=== PATIENT | male | born 1950 | race Caucasian/White ===

== ENCOUNTER 2019-04-23 03:35 | Inpatient (IN) | payer MEDICARE, OTHER ==
[2019-04-23] MEDS ORDERED: ONDANSETRON HCL INJ/PF 4 MG/2 ML SDV IV ONE (04:14)
[2019-04-23 04:24] LABS: VENOUS BLOOD BASE EXCESS -6.8 mmol/L; VENOUS BLOOD HCO3 18.2 mmol/L (20-32); VENOUS BLOOD PCO2 34.7 mmHg (35-63); VENOUS BLOOD PH 7.34 (7.30-7.42)
[2019-04-23 04:38] LABS: ABSOLUTE BASOPHILS # (AUTO) 0.1 10^3/uL (0.0-0.2); ABSOLUTE EOSINOPHILS # (AUTO) 0.1 10^3/uL (0.0-0.6); ABSOLUTE LYMPHOCYTES (AUTO) 1.9 10^3/uL (0.5-4.7); ABSOLUTE MONOCYTES (AUTO) 1.2 10^3/uL (0.1-1.4); ABSOLUTE NEUT (AUTO) 14.4 10^3/uL (1.7-8.2); BASOPHILS % (AUTO) 0.3 % (0-2); EOSINOPHILS % (AUTO) 0.6 % (0-6); HEMATOCRIT 25.7 % (37.9-51.0); HEMOGLOBIN 8.6 g/dL (13.5-17.0); LYMPHOCYTES % (AUTO) 10.6 % (13-45); MEAN CORPUSCULAR HEMOGLOBIN 30.2 pg (27.0-33.4); MEAN CORPUSCULAR HGB CONC 33.4 g/dL (32.0-36.0); MEAN CORPUSCULAR VOLUME 90 fl (80-97); MONOCYTES % (AUTO) 6.6 % (3-13); PLATELET COUNT 184 10^3/uL (150-450); RED BLOOD COUNT 2.84 10^6/uL (4.35-5.55); RED CELL DISTRIBUTION WIDTH 14.1 % (11.5-14.0); SEGMENTED NEUTROPHILS % (AUTO) 81.9 % (42-78); TOTAL CELLS COUNTED % (AUTO) 100 %; WHITE BLOOD COUNT 17.6 10^3/uL (4.0-10.5)
[2019-04-23 04:49] LABS: ALBUMIN 2.8 g/dL (3.5-5.0); ALKALINE PHOSPHATASE 34 U/L (38-126); ANION GAP 11 (5-19); ASPARTATE AMINO TRANSFERASE 24 U/L (17-59); BILIRUBIN,DIRECT 0.3 mg/dL (0.0-0.4); BILIRUBIN,TOTAL 0.3 mg/dL (0.2-1.3); BLOOD UREA NITROGEN 53 mg/dL (7-20); CALCIUM 8.2 mg/dL (8.4-10.2); CARBON DIOXIDE 20 mmol/L (22-30); CHLORIDE 109 mmol/L (98-107); GLUCOSE 179 mg/dL (75-110); POTASSIUM 4.9 mmol/L (3.6-5.0); TOTAL PROTEIN 5.5 g/dL (6.3-8.2)
[2019-04-23 04:50] LABS: INTERNATIONAL RATION (INR) 1.18; PROTHROMBIN TIME 15.1 SEC (11.4-15.4)
--- NOTE | 2019-04-23 04:54 | RADIOLOGY REPORT (SQ) ---
CLINICAL HISTORY: cough; sepsis alert COMPARISON: None. TECHNIQUE: XR CHEST 1 VIEW 04/23/2019 3:44 AM CDT FINDINGS: The heart is mildly enlarged following sternotomy. Lungs are clear without consolidation, atelectasis, mass or edema. There is a small left pleural effusion. There is no pneumothorax. There are no acute osseous findings. IMPRESSION: Small left pleural effusion.
[2019-04-23] MEDS ORDERED: PIPERACILLIN/TAZOBACTAM 4.5 GM VIAL IV ONE (05:14)
[2019-04-23] MEDS ORDERED: NORMAL SALINE IV ONE (05:14)
--- NOTE | 2019-04-23 05:33 | ER Document Report ---
Entered by CULLEN CUBA SCRIBE 04/23/19 0523 Acting as scribe for:PERLA SANTOS IV, MD ED Medical Screen (RME) - General Chief Complaint: Passed Out Prior to Arrival Stated Complaint: SYNCOPAL EPISODE Information source: Patient, Relative - Spouse Notes: 68-year-old male presents with to the emergency department via EMS after a syncopal episode that occurred at home. Patient went to use the bathroom when he "blacked out". Patient's reports fatigue, poor appetite, diarrhea and nausea. Patient's describes that they just closed on their house and have been in the process of moving from [place], [place]. Patient's states that this has caused the patient stress and he has "not been sleeping right". Patient denies black tarry stool. 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 DDx: GI bleed, sepsis, dehydration, malnutrition, ACS, PNA and UTI TRAVEL OUTSIDE OF THE [place] IN LAST 30 DAYS: No - Related Data Allergies/Adverse Reactions: oxycodone [From Percocet] Allergy (Verified 04/23/19 03:52) Past Medical History - General Information source: Patient, Relative - Social History Cigarette use (# per day): No Chew tobacco use (# tins/day): No Frequency of alcohol use: Occasional Drug Abuse: None Family history: Reviewed & Not Pertinent - Past Medical History Cardiac Medical History: Reports: Hx Hypertension Endocrine Medical History: Reports: Hx Diabetes Mellitus Type 2 Musculoskeltal Medical History: Reports Hx Arthritis - right knee Past Surgical History: Reports: Hx Cardiac Catheterization - stent Review of Systems - Review of Systems Constitutional: See HPI, Other - Fatigue EENT: No symptoms reported Cardiovascular: No symptoms reported Respiratory: No symptoms reported Gastrointestinal: See HPI, Diarrhea, Nausea, Poor appetite. denies: Black stools Genitourinary: No symptoms reported Male Genitourinary: No symptoms reported Musculoskeletal: No symptoms reported Skin: No symptoms reported Hematologic/Lymphatic: No symptoms reported Neurological/Psychological: No symptoms reported -: Yes All other systems reviewed and negative Physical Exam - Vital signs Vitals: Temp Pulse Resp BP Pulse Ox 98 F 74 18 91/48 L 99 04/23/19 03:43 04/23/19 03:43 04/23/19 03:43 04/23/19 03:43 04/23/19 03:43 - Notes Notes: Physical Exam: General: Alert, appears well. HEENT: Normocephalic. Atraumatic. PERRL. Extraocular movements intact. Or opharynx clear. Neck: Supple. Non-tender. Respiratory: No respiratory distress. Clear and equal breath sounds bilaterally. Cardiovascular: Regular rate and rhythm. Abdominal: Normal Inspection. Non-tender. No distension. Normal Bowel Sounds. Back: No gross abnormalities. Extremities: Moves all four extremities. Upper extremities: Normal inspection. Normal ROM. Lower extremities: Normal inspection. No edema. Normal ROM. Neurological: Normal cognition. AAOx4. Normal speech. Psychological: Normal affect. Normal Mood. Skin: Warm. Dry. Normal color. Course - Vital Signs Vital signs: Temp Pulse Resp BP Pulse Ox 98 F 74 18 91/48 L 99 04/23/19 03:43 04/23/19 03:43 04/23/19 03:43 04/23/19 03:43 04/23/19 03:43 - Laboratory Result Diagrams: 04/23/19 04:18 04/23/19 04:18 Laboratory results interpreted by me: 04/23/19 04/23/19 04/23/19 03:52 04:10 04:18 WBC RBC Hgb Hct RDW Lymph % (Auto) Absolute Neuts (auto) Seg Neutrophils % VBG pCO2 34.7 L VBG HCO3 18.2 L Chloride Carbon Dioxide BUN Glucose POC Glucose 183 H Lactic Acid 3.8 H Calcium Alkaline Phosphatase Total Protein Albumin 04/23/19 04/23/19 04:18 04:18 WBC 17.6 H RBC 2.84 L Hgb 8.6 L Hct 25.7 L RDW 14.1 H Lymph % (Auto) 10.6 L Absolute Neuts (auto) 14.4 H Seg Neutrophils % 81.9 H VBG pCO2 VBG HCO3 Chloride 109 H Carbon Dioxide 20 L BUN 53 H Glucose 179 H POC Glucose Lactic Acid Calcium 8.2 L Alkaline Phosphatase 34 L Total Protein 5.5 L Albumin 2.8 L I personally performed the services described in the documentation, reviewed and edited the documentation which was dictated to the scribe in my presence, and it accurately records my words and actions.
[2019-04-23 05:37] LABS: APPEARANCE,URINE CLEAR; BILIRUBIN,URINE NEGATIVE (NEGATIVE); COLOR,URINE YELLOW; GLUCOSE, URINE NEGATIVE (NEGATIVE); KETONES,URINE TRACE mg/dL (NEGATIVE); PROTEIN,URINE NEGATIVE (NEGATIVE); UROBILINOGEN,URINE NEGATIVE mg/dL (<2.0)
--- NOTE | 2019-04-23 05:47 | RADIOLOGY REPORT (SQ) ---
CLINICAL HISTORY: Fall COMPARISON: None. TECHNIQUE: CT HEAD WITHOUT IV CONTRAST on 04/23/2019 12:00 AM CDT This exam was performed according to our departmental dose-optimization program, which includes automated exposure control, adjustment of the mA and/or kV according to patient size and/or use of iterative reconstruction technique. FINDINGS: There is no acute hemorrhage, mass effect or midline shift. Geiger-white differentiation is preserved. There is no hydrocephalus. There is no significant volume loss for age. There are mild patchy hypodensities within the periventricular and subcortical white matter, consistent with microangiopathic ischemic changes. The calvarium is intact. Orbits and globes are unremarkable. The paranasal sinuses are clear. Mastoid air cells are clear. IMPRESSION: No acute intracranial findings.
--- NOTE | 2019-04-23 05:48 | RADIOLOGY REPORT (SQ) ---
CLINICAL HISTORY: Fall COMPARISON: None. TECHNIQUE: CT CERVICAL SPINE WITHOUT IV CONTRAST on 04/23/2019 12:00 AM CDT This exam was performed according to our departmental dose-optimization program, which includes automated exposure control, adjustment of the mA and/or kV according to patient size and/or use of iterative reconstruction technique. FINDINGS: There is no acute fracture. There is grade 1 retrolisthesis of C3 on C4 and C4 on C5. There is mild upper cervical facet arthritis bilaterally. There is severe of the C5-6 and C6 discs. Vertebral body heights are preserved. Soft tissues are unremarkable. IMPRESSION: No acute fracture or subluxation.
[2019-04-23] MEDS ORDERED: PANTOPRAZOLE SODIUM 40 MG VIAL IV ONE (06:20)
[2019-04-23] MEDS ORDERED: NORMAL SALINE 1000 ML 1,000 ML IV ONE (06:21)
[2019-04-23] MEDS ORDERED: NORMAL SALINE 250 ML IV PRN ×2 (06:22)
--- NOTE | 2019-04-23 06:43 | ER Document Report ---
ED General - General Chief Complaint: Passed Out Prior to Arrival Stated Complaint: SYNCOPAL EPISODE Time Seen by Provider: 04/23/19 06:09 TRAVEL OUTSIDE OF THE U.S[place] IN LAST 30 DAYS: No - HPI Notes: 68-year-old male presents with to the emergency department via EMS after a syncopal episode that occurred at home. Patient went to use the bathroom when he "blacked out". Patient's reports fatigue, poor appetite, diarrhea and nausea. Patient's describes that they just closed on their house and have been in the process of moving from [place], [place]. Patient's states that this has caused the patient stress and he has "not been sleeping right". Patient reports black tarry stool. 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 This gentleman has a past history of stroke and CABG. He is also had pleural surgery of his left long for a collapsed lung in the past. He had a previous GI bleed in 2011 and was also found to be severely anemic in 2018 on the basis of a gastric ulcer. He required transfusion of 2 units of packed cells in 2018. He denies any current abdominal pain. He has felt somewhat short of breath. - Related Data Allergies/Adverse Reactions: oxycodone [From Percocet] Allergy (Verified 04/23/19 03:52) Past Medical History - General Information source: Patient, Relative - Social History Smoking Status: Former Smoker Cigarette use (# per day): No Chew tobacco use (# tins/day): No Frequency of alcohol use: Occasional Drug Abuse: None Lives with: Spouse/Significant other Family History: Reviewed & Not Pertinent Patient has suicidal ideation: No Patient has homicidal ideation: No - Past Medical History Cardiac Medical History: Reports: Hx Hypertension Endocrine Medical History: Reports: Hx Diabetes Mellitus Type 2 GI Medical History: Reports: Hx Ulcer - Taken to endoscopy now with plan great thanks are Musculoskeletal Medical History: Reports Hx Arthritis - right knee Past Surgical History: Reports: Hx Cardiac Catheterization - stent Review of Systems - Review of Systems Notes: Constitutional: Negative for fever. HENT: Negative for sore throat. Eyes: Negative for visual changes. Cardiovascular: Negative for chest pain. Respiratory: Dyspneic. No cough or sputum production. Gastrointestinal: Negative for abdominal pain, vomiting or diarrhea. Genitourinary: Negative for dysuria. Musculoskeletal: Negative for back pain. Skin: Negative for rash. Neurological: Negative for headaches, weakness or numbness. 10 point ROS negative except as marked above and in HPI. Physical Exam - Vital signs Vitals: Temp Pulse Resp BP Pulse Ox 98 F 74 18 91/48 L 99 04/23/19 03:43 04/23/19 03:43 04/23/19 03:43 04/23/19 03:43 04/23/19 03:43 - Notes Notes: GENERAL: Anxious pale elderly man. SKIN: Pale and cool. Good turgor no rashes. HEAD: Normocephalic atraumatic. EYES: PERRLA. EOMI. Conjunctivae pale. EARS: CANALS AND TMS CLEAR. NOSE: CLEAR. MOUTH: Moist mucosa. Good dentition. No stridor or edema. No drooling. NECK: Supple. No masses or thyromegaly. No adenopathy. Carotids 2+ without bruits. No JVD. BACK: Symmetrical without tenderness. CHEST: Respirations unlabored. Breath sounds clear with diminished breath sounds left base. HEART: Regular rhythm. No murmur gallop or rub. ABDOMEN: Soft nontender without masses, organomegaly or rebound. Bowel sounds normally active. No bruits. Rectal: Dark stool strongly heme positive. EXTREMITIES: No edema. No calf tenderness. Cap refill less than 1.5 seconds. Dorsalis pedis and posterior tibial pulses 3+ and symmetrical. NEUROLOGICAL: GCS 15. Alert and oriented x3. Fluent speech. Cranial nerves II through XII intact. Sensorimotor and cerebellar normal. Normal tone. PSYCHIATRIC: Appropriate affect. Course - Re-evaluation Re-evalutation: 04/23/19 06:43 Patient has had hypotension with fainting and is still mildly hypotensive. He has a heme positive stool. His hemoglobin is 8.3 g. Platelets are normal. INR normal. EKG shows no acute changes. Clinically this man has had presumably a recurrent upper GI bleed. I have consulted Dr. Treadwell from surgery who will perform an upper GI endoscopy at this time. I have given this man resuscitation with normal saline through 2 large-bore IVs. I am going to empirically transfuse him with 2 units of packed cells and because he is on Plavix I will give him a unit of platelets as well. I have spoken with Dr. Sapp who agrees that this man can be admitted to the critical care unit at this time. I have also started IV Protonix. - Vital Signs Vital signs: Temp Pulse Resp BP Pulse Ox 98 F 74 18 91/48 L 99 04/23/19 03:43 04/23/19 03:43 04/23/19 03:43 04/23/19 03:43 04/23/19 03:43 - Laboratory Result Diagrams: 04/23/19 04:18 04/23/19 04:18 Laboratory results interpreted by me: 04/23/19 04/23/19 04/23/19 03:52 04:10 04:18 WBC RBC Hgb Hct RDW Lymph % (Auto) Absolute Neuts (auto) Seg Neutrophils % VBG pCO2 34.7 L VBG HCO3 18.2 L Chloride Carbon Dioxide BUN Glucose POC Glucose 183 H Lactic Acid 3.8 H Calcium Alkaline Phosphatase Total Protein Albumin Urine Ketones Crossmatch 04/23/19 04/23/19 04/23/19 04:18 04:18 05:21 WBC 17.6 H RBC 2.84 L Hgb 8.6 L Hct 25.7 L RDW 14.1 H Lymph % (Auto) 10.6 L Absolute Neuts (auto) 14.4 H Seg Neutrophils % 81.9 H VBG pCO2 VBG HCO3 Chloride 109 H Carbon Dioxide 20 L BUN 53 H Glucose 179 H POC Glucose Lactic Acid Calcium 8.2 L Alkaline Phosphatase 34 L Total Protein 5.5 L Albumin 2.8 L Urine Ketones TRACE H Crossmatch 04/23/19 05:48 WBC RBC Hgb Hct RDW Lymph % (Auto) Absolute Neuts (auto) Seg Neutrophils % VBG pCO2 VBG HCO3 Chloride Carbon Dioxide BUN Glucose POC Glucose Lactic Acid Calcium Alkaline Phosphatase Total Protein Albumin Urine Ketones Crossmatch See Detail Critical Care Note - Critical Care Note Total time excluding time spent on procedures (mins): 35 - Transfusion of packed cells and platelets Discharge - Discharge Clinical Impression: Syncope and collapse, Acute upper GI bleeding Condition: Critical Disposition: ADMITTED INPATIENT Admitting Provider: Selvin (Fish Inspector) Unit Admitted: ICU
--- NOTE | 2019-04-23 06:58 | PDOC CONSULTATION ---
Consultation Consult Date: 04/23/19 Attending physician:: SAMANTHA GONZALES Provider Consulted: KAR BAILEY Consult reason:: GI bleed History of Present Illness History of Present Illness: KATI SOLIS is a 68 year old male Presents emergency department via rescue after having fallen down, experiencing a syncopal episode in the bathroom last night. Patient arrived hypotensive and somewhat disoriented, but improved with IV fluids. Patient had CT scan of the head, unremarkable, chest x-ray which showed a small left pleural effusion. On further questioning patient was noted to have several days of dark tarry stools and weakness. Symptoms were similar to patient's GI bleed in 2011. In the emergency department his hemoglobin was found to be 8.5. Examination revealed positive stools but no hematemesis or zeb melena the ER. Surgery was consulted for upper endoscopy. Past history significant for hematemesis 2012 upper GI bleed requiring scopic intervention. Patient had another episode of anemia in 2018, requiring 2 units of blood transfusion. Upper endoscopy at that time showed healing ulcer; patient has had several colonoscopies in 2014 and 2018 most recently with polyps only. Patient is on Plavix for history of stent placement. He is status post CABG in 2005. Patient been evaluated in the emergency department, being transferred to the ICU for further management. Past Medical History Past Medical History: Coronary artery disease, GI bleed, ulcers, gastric polyp, left lung decortication Cardiac Medical History: Reports: Hypertension Endocrine Medical History: Reports: Diabetes Mellitus Type 2 Musculoskeltal Medical History: Reports: Arthritis - right knee Past Surgical History Past Surgical History: Cardiac catheterization in the last 5 years, with stent placement; coronary artery bypass grafting, during, 2005; right knee surgery post trauma; left lung decortication 2018, [place], [place] Past Surgical History: Reports: Cardiac Catheterization - stent Social History Lives with: Spouse/Significant other Smoking Status: Former Smoker Electronic Cigarette use?: No Frequency of Alcohol Use: Social Hx Recreational Drug Use: No Hx Prescription Drug Abuse: No Family History Family History: None, Reviewed & Not Pertinent Parental Family History Reviewed: No Children Family History Reviewed: No Sibling(s) Family History Reviewed.: No Medication/Allergy Home Medications: Acetaminophen [Tylenol] 1,000 mg PO Q6HP PRN 04/23/19 Ascorbic Acid [Vitamin C 500 mg Tablet] 1 tab PO Q4D 04/23/19 Aspirin [Aspirin 81 mg Chewable Tablet] 81 mg PO DAILY 04/23/19 Clopidogrel Bisulfate [Plavix] 75 mg PO DAILY 04/23/19 Dextromethorphan Polistirex 30 mg PO Q8H 04/23/19 Diphenhydramine HCl [Allergy Medication] 1 tab PO Q8HP PRN 04/23/19 Ferrous Sulfate [Feosol 325 mg Tablet] 325 mg PO Q4D 04/23/19 Ibuprofen [Ibu] 600 mg PO Q8HP PRN 04/23/19 Loperamide HCl [Loperamide] 2 mg PO Q8HP PRN 04/23/19 Melatonin 10 mg PO QHS 04/23/19 Metformin HCl [Metformin HCl ER] 1,000 mg PO BID 04/23/19 Metoprolol Succinate 100 mg PO DAILY 04/23/19 Oxymetazoline HCl [Afrin 0.05% Nasal Magdalena 15 ml Bottle] 1 spray NASL ASDIR PRN 04/23/19 Sildenafil Citrate 1 tab PO PRN PRN 04/23/19 Simvastatin 40 mg PO DAILY 04/23/19 Allergies/Adverse Reactions: oxycodone [From Percocet] Allergy (Verified 04/23/19 03:52) Review of Systems Eyes: ABSENT: visual disturbances Ears: ABSENT: hearing changes Cardiovascular: ABSENT: chest pain, dyspnea on exertion, edema, orthropnea, palpitations Gastrointestinal: ABSENT: abdominal pain, constipation, diarrhea, hematemesis, hematochezia, nausea, vomiting Genitourinary: PRESENT: nocturia Musculoskeletal: PRESENT: joint swelling Neurological: ABSENT: abnormal gait, abnormal speech, confusion, dizziness, focal weakness, syncope Psychiatric: ABSENT: anxiety, depression, homidical ideation, suicidal ideation Endocrine: ABSENT: cold intolerance, heat intolerance, polydipsia, polyuria Hematologic/Lymphatic: PRESENT: other - History of anemia Physical Exam Vital Signs: Temp Pulse Resp BP Pulse Ox 98 F 74 18 91/48 L 99 04/23/19 03:43 04/23/19 03:43 04/23/19 03:43 04/23/19 03:43 04/23/19 03:43 Intake & Output 04/21/19 04/22/19 04/23/19 06:59 06:59 06:59 Weight 96.162 kg General appearance: PRESENT: no acute distress, other - Looks pale, talkative Head exam: PRESENT: normocephalic Eye exam: PRESENT: EOMI Mouth exam: PRESENT: dry mucosa Neck exam: PRESENT: full ROM Respiratory exam: PRESENT: clear to auscultation juani, other - Well-healed median sternotomy scar; left thoracostomy tube site scars Cardiovascular exam: PRESENT: RRR Pulses: PRESENT: normal carotid pulses, normal radial pulses, normal femoral pulses, normal dorsalis pedis pul GI/Abdominal exam: PRESENT: soft - Soft nontender no peritoneal signs no rigidity Rectal exam: PRESENT: deferred Extremities exam: PRESENT: full ROM Musculoskeletal exam: PRESENT: full ROM Neurological exam: PRESENT: oriented to person, oriented to place, oriented to time, oriented to situation Psychiatric exam: PRESENT: appropriate affect Results Laboratory Results: 04/23/19 04:18 04/23/19 04:18 04/23/19 04/23/19 04/23/19 04:10 04:18 04:18 WBC 17.6 H RBC 2.84 L Hgb 8.6 L Hct 25.7 L MCV 90 MCH 30.2 MCHC 33.4 RDW 14.1 H Plt Count 184 Seg Neutrophils % 81.9 H VBG pH 7.34 VBG pCO2 34.7 L VBG HCO3 18.2 L VBG Base Excess -6.8 Sodium Potassium Chloride Carbon Dioxide Anion Gap BUN Creatinine Est GFR ( Amer) Glucose Lactic Acid 3.8 H Calcium Total Bilirubin AST Alkaline Phosphatase Total Protein Albumin Urine Color Urine Appearance Urine pH Ur Specific [place] Urine Protein Urine Glucose (UA) Urine Ketones Urine Blood Blood Type 04/23/19 04/23/19 04/23/19 04:18 05:21 05:48 WBC RBC Hgb Hct MCV MCH MCHC RDW Plt Count Seg Neutrophils % VBG pH VBG pCO2 VBG HCO3 VBG Base Excess Sodium 139.5 Potassium 4.9 Chloride 109 H Carbon Dioxide 20 L Anion Gap 11 BUN 53 H Creatinine 0.83 Est GFR ( Amer) > 60 Glucose 179 H Lactic Acid Calcium 8.2 L Total Bilirubin 0.3 AST 24 Alkaline Phosphatase 34 L Total Protein 5.5 L Albumin 2.8 L Urine Color YELLOW Urine Appearance CLEAR Urine pH 5.0 Ur Specific [place] 1.020 Urine Protein NEGATIVE Urine Glucose (UA) NEGATIVE Urine Ketones TRACE H Urine Blood NEGATIVE Blood Type O POSITIVE 04/23/19 04:18 Troponin I < 0.012 Impressions: Cervical Spine CT 04/23/19 00:00 IMPRESSION: No acute fracture or subluxation. Head CT 04/23/19 00:00 IMPRESSION: No acute intracranial findings. Chest X-Ray 04/23/19 03:44 IMPRESSION: Small left pleural effusion. Assessment & Plan - Diagnosis (1) Acute upper GI bleeding Is this a current diagnosis for this admission?: Yes Plan: Impression: Presumed upper GI bleed based on past history of peptic ulcer disease, melanotic stools and blood loss anemia with ectopy and hypotension. Patient stabilizing with IV fluids. Recommendations: 1. Admit to manager quality service, monitor, support with blood transfusions, antiulcer therapy 2. We will set patient up for upper endoscopy later today by Dr. Gutierrez in the ICU. The above explained to the patient and his . I believe they understand agree to proceed. (2) Status post aorto-coronary artery bypass graft Is this a current diagnosis for this admission?: Yes (3) History of peptic ulcer disease Is this a current diagnosis for this admission?: Yes (4) Syncope and collapse Is this a current diagnosis for this admission?: Yes (5) Visit for monitoring Plavix therapy Is this a current diagnosis for this admission?: Yes (6) Diabetes mellitus Is this a current diagnosis for this admission?: Yes - Time Time Spent: 30 to 50 Minutes Smoking Cessation Education: 3 to 10 minutes Medications reviewed and adjusted accordingly: Yes Anticipated discharge: Home - Inpatient Certification Based on my medical assessment, after consideration of the patient's comorbidities, presenting symptoms, or acuity I expect that the services needed warrant INPATIENT care.: Yes I certify that my determination is in accordance with my understanding of Medicare's requirements for reasonable and necessary INPATIENT services [42 CFR 412.3e].: Yes Medical Necessity: Need For IV Fluids, Need for Pain Control, Need for IV Antibi otics, Need for Surgery
[2019-04-23] MEDS: PANTOPRAZOLE SODIUM 40 MG VIAL IV PRN ×2 (07:21→16:18)
--- NOTE | 2019-04-23 09:38 | RADIOLOGY REPORT (SQ) ---
EXAM DESCRIPTION: CHEST SINGLE VIEW COMPLETED DATE/TIME: 04/23/2019 9:22 am REASON FOR STUDY: DYSPNEA COMPARISON: None. EXAM PARAMETERS: NUMBER OF VIEWS: One view. TECHNIQUE: Single frontal radiographic view of the chest acquired. RADIATION DOSE: NA LIMITATIONS: None. FINDINGS: LUNGS AND PLEURA: Stable trace left effusion and mild basilar opacities. No new airspace disease. No pneumothorax. MEDIASTINUM AND HILAR STRUCTURES: No masses. Contour normal. HEART AND VASCULAR STRUCTURES: Normal heart size. Vascular calcifications. Evidence of prior CABG. BONES: No acute findings. HARDWARE: CABG hardware. OTHER: No other significant finding. IMPRESSION: 1. Stable trace left effusion mild left basilar opacities. 2. Prior CABG. TECHNICAL DOCUMENTATION: JOB ID: [id number] [employer]- All Rights Reserved Reading location - IP/workstation name: [email or web address]
[2019-04-23 09:57] LABS: PHOSPHORUS 3.1 mg/dL (2.5-4.5)
[2019-04-23 10:00] LABS: AMYLASE < 30 U/L (30-110)
[2019-04-23] MEDS: RINGERS SOLUTION,LACTATED 1,000 ML IV PRN ×2 (11:43→21:43)
[2019-04-23] MEDS ORDERED: ONDANSETRON HCL INJ/PF 4 MG/2 ML SDV ONE ×2 (12:24→15:48)
[2019-04-23] MEDS ORDERED: DIPHENHYDRAMINE HCL 50 MG/ML VIAL ONE ×2 (12:24→15:48)
[2019-04-23] MEDS ORDERED: GLUCAGON,HUMAN RECOMB 1 MG INJ ONE ×2 (12:25→15:49)
[2019-04-23] MEDS ORDERED: FLUMAZENIL INJ 0.5 MG/5 ML VIAL ONE ×2 (12:25→15:49)
[2019-04-23] MEDS ORDERED: NALOXONE HCL INJ/PF 0.4 MG/1 ML SDV ONE ×2 (12:25→15:49)
[2019-04-23] MEDS ORDERED: EPINEPHRINE INJ 1 MG/10 ML DISP.SYRIN ONE ×2 (12:25→15:49)
--- NOTE | 2019-04-23 13:26 | CRITICAL CARE ADMISSION REPORT ---
[facility] Date:: 04/23/19 Time:: 08:30 Reason for ICU Reason:: Hypotension with anemia and melena on Plavix HPI: 68-year-old male presents to Emergency department via EMS after a syncopal episode which occurred at home. Patient used the bathroom and does not remember what happened. He apparently "blacked out". Patient and endorse fatigue, poor appetite, diarrhea and nausea. Patient felt that this was related to being busy, not eating and a recent move. Patient's describes that they have been in the process of moving from [place], [place]. Patient has felt stress and has "not been sleeping right". Patient reports black tarry stool. Patient arrived hypotensive and somewhat disoriented, but improved with IV fluids. CT scan of the head and neck were unremarkable. A Chest x-ray which showed a small left pleural effusion. Patient does endorse several days of dark tarry stools and weakness. Symptoms were similar to patient's GI bleed in 2012. In the emergency department his hemoglobin was found to be 8.5. Examination revealed positive stools but no hematemesis or zeb melena the ER. 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 Patient feels that this was lack of food and he attempted to improve this with the hydrates. He endorses nausea without vomiting. He does not describe any abdominal pain. He does feel slightly short of breath but this improved with oxygen given in the emergency room. He also states that he has been using ibuprophen for aches and pains associated with cleaning up his house and moving. He takes this in addition to Plavix and Aspirin. As noted from ED: Has past history of stroke and CABG. He is also had pleural surgery of his left long for a collapsed lung in the past. He had a previous GI bleed in 2012 and was also found to be severely anemic in 2018 on the basis of a "mild gastric ulcer. He required transfusion of 2 units of packed cells in 2018. Past history significant for hematemesis 2012 upper GI bleed requiring scopic intervention. Patient had another episode of anemia in 2018, requiring 2 units of blood transfusion. Upper endoscopy at that time showed healing ulcer; patient has had several colonoscopies in 2015 and 2018 most recently with polyps only. Patient is on Plavix for history of stent placement. He is status post CABG in 2005. History obtained from:: Patient, ED staff and - Diagnosis/Plan (1) Hypotension due to hypovolemia Is this a current diagnosis for this admission?: Yes (2) Syncope and collapse Is this a current diagnosis for this admission?: Yes (3) Syncope due to orthostatic hypotension Is this a current diagnosis for this admission?: Yes (4) Acute on chronic blood loss anemia Is this a current diagnosis for this admission?: Yes (5) Anticoagulant-induced bleeding Is this a current diagnosis for this admission?: Yes (6) Upper gastrointestinal bleeding Is this a current diagnosis for this admission?: Yes (7) Lactic acidosis Is this a current diagnosis for this admission?: Yes - . Plan Summary: The patient had orthostatic hypotension related to hypovolemia related to acute on chronic blood loss from an apparent GI bleed. He is on DAPT and has been taking Ibuprophen. He has been ordered 2 units of blood and platelets by the emergency department. This will be ineffective in the face of Plavix and aspirin and if his bleeding worsens will need DDAVP. I personally reviewed his EKG which shows no acute changes. Given his shortness of breath and orthostasis will follow troponin. Patient will need upper GI evaluation and have asked surgery for assistance. In the emergency room his blood pressure on my evaluation was what was 86/46 and given his cardiac history he meets criteria and suitability for ICU admission. Patient does have mild elevation in lactic acid but this may be related to metformin. This may be a metformin associated but not induced lactic acid elevation. Continue to monitor his pH status He has been started on Protonix and will continue this as a maintenance drip He has no history of H. pylori Obviously will need counseling on NSAID use. Past Medical History Cardiac Medical History: Reports: Coronary Artery Disease, Myocardial Infarction, Hypertension Pulmonary Medical History: Reports: None EENT Medical History: Reports: None Neurological Medical History: Reports: Ischemic CVA Endocrine Medical History: Reports: Diabetes Mellitus Type 2 Malignancy Medical History: Reports: None GI Medical History: Reports: Gastroesophageal Reflux Disease, Peptic Ulcer Disease, Other - Previous GI bleed Musculoskeltal Medical History: Reports: Arthritis - right knee Past Surgical History Past Surgical History: Reports: Cardiac Catheterization - stent, Coronary Stent Social/Family History - Social History Lives with: Spouse/Significant other Smoking Status: Former Smoker Last Time Smoked: 26 years ago Frequency of Alcohol Use: Social Amount of Alcoholic Beverages Per Day: none. Only only one day of weekend. Hx Recreational Drug Use: No Drugs: None Hx Prescription Drug Abuse: No - Family History Family History: Reviewed & Not Pertinent - Medication/Allergies Home Medications: Clopidogrel Bisulfate [Plavix] 75 mg PO DAILY 04/23/19 Diphenhydramine HCl [Allergy Medication] 1 tab PO Q8HP PRN 04/23/19 Metformin HCl [Metformin HCl ER] 1,000 mg PO BID 04/23/19 Metoprolol Succinate 100 mg PO DAILY 04/23/19 Simvastatin 40 mg PO DAILY 04/23/19 Allergies/Adverse Reactions: oxycodone [From Percocet] Allergy (Verified 04/23/19 03:52) Review of Systems Constitutional: PRESENT: as per HPI Cardiovascular: PRESENT: as per HPI Respiratory: PRESENT: as per HPI Gastrointestinal: PRESENT: as per HPI Genitourinary: ABSENT: difficulty urinating, hematuria Musculoskeletal: PRESENT: as per HPI Neurological: PRESENT: as per HPI Endocrine: PRESENT: as per HPI Hematologic/Lymphatic: PRESENT: as per HPI Physical Exam Vital Signs: Temp Pulse Resp BP Pulse Ox 98 F 80 21 H 95/54 L 100 04/23/19 08:31 04/23/19 08:08 04/23/19 08:45 04/23/19 08:45 04/23/19 08:45 Intake & Output 04/22/19 04/23/19 04/24/19 06:59 06:59 06:59 Intake Total 227 Balance 227 Weight 96.162 kg Weight/Height Weight 96.162 kg Height 5 ft 8 in General appearance: PRESENT: no acute distress, obese, well-nourished Head exam: PRESENT: atraumatic, normocephalic Eye exam: PRESENT: conjunctiva pale, EOMI, PERRLA. ABSENT: conjunctival injection, nystagmus, scleral icterus Mouth exam: PRESENT: dry mucosa Neck exam: ABSENT: carotid bruit, JVD, lymphadenopathy, thyromegaly Respiratory exam: PRESENT: clear to auscultation juani. ABSENT: accessory muscle use, rales, rhonchi, wheezes Cardiovascular exam: PRESENT: RRR, other - Bp 84/45 in ED, repeat in ICU, 110/60. ABSENT: diastolic murmur, rubs, systolic murmur Pulses: PRESENT: +1 pedal pulses bilateral Vascular exam: PRESENT: normal capillary refill, other - pale GI/Abdominal exam: PRESENT: normal bowel sounds, soft. ABSENT: distended, guarding, mass, organolmegaly, rebound, tenderness Rectal exam: PRESENT: deferred, black stool Extremities exam: ABSENT: +1 edema Neurological exam: PRESENT: alert, awake, oriented to person, oriented to place, oriented to time, oriented to situation, CN II-XII grossly intact. ABSENT: motor sensory deficit Psychiatric exam: PRESENT: appropriate affect, normal mood Focused psych exam: ABSENT: pressured speech, psychomotor agitation, restlessness Skin exam: PRESENT: dry, intact, pallor. ABSENT: cyanosis, erythema, jaundice, mottled Tubes/Lines: ABSENT: Endotracheal Tube, Chest Tube, Central Line, Arterial Catheter, Dialysis catheter, Peg Tube, Nasogastic Tube, Other Laboratory/Radiographs Laboratory Results: 04/23/19 04:18 04/23/19 04:18 04/23/19 04/23/19 04/23/19 04:10 04:18 04:18 WBC 17.6 H RBC 2.84 L Hgb 8.6 L Hct 25.7 L MCV 90 MCH 30.2 MCHC 33.4 RDW 14.1 H Plt Count 184 Seg Neutrophils % 81.9 H VBG pH 7.34 VBG pCO2 34.7 L VBG HCO3 18.2 L VBG Base Excess -6.8 Sodium Potassium Chloride Carbon Dioxide Anion Gap BUN Creatinine Est GFR ( Amer) Glucose Lactic Acid 3.8 H Calcium Total Bilirubin AST Alkaline Phosphatase Total Protein Albumin Urine Color Urine Appearance Urine pH Ur Specific [place] Urine Protein Urine Glucose (UA) Urine Ketones Urine Blood Blood Type Antibody Screen 04/23/19 04/23/19 04/23/19 04:18 05:21 05:48 WBC RBC Hgb Hct MCV MCH MCHC RDW Plt Count Seg Neutrophils % VBG pH VBG pCO2 VBG HCO3 VBG Base Excess Sodium 139.5 Potassium 4.9 Chloride 109 H Carbon Dioxide 20 L Anion Gap 11 BUN 53 H Creatinine 0.83 Est GFR ( Amer) > 60 Glucose 179 H Lactic Acid Calcium 8.2 L Total Bilirubin 0.3 AST 24 Alkaline Phosphatase 34 L Total Protein 5.5 L Albumin 2.8 L Urine Color YELLOW Urine Appearance CLEAR Urine pH 5.0 Ur Specific [place] 1.020 Urine Protein NEGATIVE Urine Glucose (UA) NEGATIVE Urine Ketones TRACE H Urine Blood NEGATIVE Blood Type O POSITIVE Antibody Screen NEGATIVE 04/23/19 06:56 WBC RBC Hgb Hct MCV MCH MCHC RDW Plt Count Seg Neutrophils % VBG pH VBG pCO2 VBG HCO3 VBG Base Excess Sodium Potassium Chloride Carbon Dioxide Anion Gap BUN Creatinine Est GFR ( Amer) Glucose Lactic Acid 4.6 H Calcium Total Bilirubin AST Alkaline Phosphatase Total Protein Albumin Urine Color Urine Appearance Urine pH Ur Specific [place] Urine Protein Urine Glucose (UA) Urine Ketones Urine Blood Blood Type Antibody Screen 04/23/19 04/23/19 04:18 04:18 Troponin I < 0.012 NT-Pro-B Natriuret Pep 131 H Impressions: Cervical Spine CT 04/23/19 00:00 IMPRESSION: No acute fracture or subluxation. Head CT 04/23/19 00:00 IMPRESSION: No acute intracranial findings. Chest X-Ray 04/23/19 03:44 IMPRESSION: Small left pleural effusion. All labs, radiographs, diagnostic studies and EKGs were personally reviewed: Yes In addition, reports of radiographic and diagnostic studies were read: Yes Critical Time Critical Time (minutes): 70 -: The care of a critically ill patient is dynamic. This note represents a static moment in the admission process. Orders and treatments may be given simultaneously and urgently, and time is not players club representative of the treatment process. This patient requires Critical Care secondary to life threatening organ or limb dysfunction. Without Critical Care services, the patient is at risk for increased mortality and morbidity. Discussed with senior health consultant staff
[2019-04-23] MEDS: FENTANYL CITRATE INJ/PF 100 MCG/2 ML AMPUL ONE ×3 (14:25→14:45)
[2019-04-23] MEDS: MIDAZOLAM 2 MG/2 ML INJ ONE ×4 (14:25→15:05)
--- NOTE | 2019-04-23 15:40 | Operative Report ---
Nonrecallable Operative Report DATE OF SURGERY: 04/23/19 PREOPERATIVE DIAGNOSIS: Gastrointestinal bleeding POSTOPERATIVE DIAGNOSIS: Upper gastrointestinal bleeding OPERATION: Esophagogastroduodenoscopy. SURGEON: ASHLEY DECKER ANESTHESIA: Moderate Sedation TISSUE REMOVED OR ALTERED: None COMPLICATIONS: None ESTIMATED BLOOD LOSS: 100 cc INTRAOPERATIVE FINDINGS: Large amount of clot within the stomach and distal esophagus the bleeding is coming from the proximal portion of the stomach just below the GE junction and a hiatal hernia PROCEDURE: Procedure was accomplished in the intensive care unit on the on the hospital bed. The patient was given IV sedation with fentanyl and Versed. After appropriate timeout site verification the procedure commenced. Olympus gastroscope was passed into the mouth into the proximal stomach. Upon visualization of the stomach there was a large amount of old blood clot. And thick tenacious clot. We were then to pass the scope into the antrum and there is no obvious bleeding coming from the body or antrum the stomach we identified the pylorus the pelvis was intubated there was no evidence of any obvious ulcer disease. We then brought the scope back through the GE junction again and noted a slow significant mount of bleeding on the medial aspect of the cardia of the stomach just below the GE junction within the hiatal hernia. I do not really appreciate a Annabella-Choudhary tear. However because of significant amount of clot was not able to completely clear the clot to get good identification of a mucosal abnormality other than bleeding from underneath the clot. We had multiple attempts at trying to remove the clot with irrigation and suction and placement of an NG tube again around the scope with more irrigation but the clot was quite tenacious within on the surface of the mucosa at the medial aspect of the cardia of the stomach. After multiple attempts we have elected to quit the procedure at this point. I have contacted Dr. Lee from gastroenterology who will also make another attempt at removing the clot using an overtube possibly and gaining better identification of the bleeding source. It appears that patient may be bleeding from either Annabella-Choudhary tear Alonso erosion or duiaFoy ulcer
[2019-04-23] MEDS ORDERED: FENTANYL CITRATE INJ/PF 100 MCG/2 ML AMPUL ONE (15:48)
[2019-04-23] MEDS ORDERED: MIDAZOLAM 2 MG/2 ML INJ ONE (15:49)
[2019-04-23] MEDS ORDERED: PROPOFOL INJ 200 MG/20 ML VIAL IV ONE (16:20)
--- NOTE | 2019-04-23 17:09 | PDOC CONSULTATION ---
Consultation Consult Date: 04/23/19 Provider Consulted: FER VARELA History of Present Illness Admission Date/PCP: 04/23/19 07:20 History of Present Illness: KATI SOLIS is a 68 year old male Patient who was admitted to the emergency room this morning with an acute GI bleed. He had presented with syncope while in the bathroom and was having melanotic stools. He had an urgent EGD performed by Dr. Gutierrez revealing a large amount of fresh blood and clots in the stomach which limited endoscopic view significantly. Consultation was requested for repeat endoscopy with possible therapeutic control of bleeding. His admission hemoglobin was 8 and he has since received 1 unit of blood. He has had 2 previous GI bleeding back in 2012 and again in 2018. He has been diagnosed with a gastric ulcer in the past and an EGD in 2018 showed a healing ulcer. He takes aspirin, Plavix, and ibuprofen on a regular basis. He drinks alcohol about once a week and has no history of cirrhosis. Past Medical History Cardiac Medical History: Reports: Coronary Artery Disease, Myocardial Infarc tion, Hypertension Pulmonary Medical History: Reports: None EENT Medical History: Reports: None Neurological Medical History: Reports: Ischemic CVA Denies: Seizures Endocrine Medical History: Reports: Diabetes Mellitus Type 2 Malignancy Medical History: Reports: None GI Medical History: Reports: Gastroesophageal Reflux Disease, Peptic Ulcer Disease, Other - Previous GI bleed Musculoskeltal Medical History: Reports: Arthritis - right knee Past Surgical History Past Surgical History: Reports: Cardiac Catheterization - stent, Coronary Stent Social History Lives with: Spouse/Significant other Smoking Status: Former Smoker Electronic Cigarette use?: No Last Time Smoked: 26 years ago Frequency of Alcohol Use: Social Hx Recreational Drug Use: No Drugs: None Hx Prescription Drug Abuse: No Family History Family History: Reviewed & Not Pertinent Parental Family History Reviewed: No Children Family History Reviewed: NA Sibling(s) Family History Reviewed.: NA Medication/Allergy Home Medications: Clopidogrel Bisulfate [Plavix] 75 mg PO DAILY 04/23/19 Diphenhydramine HCl [Allergy Medication] 1 tab PO Q8HP PRN 04/23/19 Metformin HCl [Metformin HCl ER] 1,000 mg PO BID 04/23/19 Metoprolol Succinate 100 mg PO DAILY 04/23/19 Simvastatin 40 mg PO DAILY 04/23/19 Allergies/Adverse Reactions: oxycodone [From Percocet] Allergy (Verified 03/13/20 03:52) Review of Systems ROS unobtainable: Due to mental status Physical Exam Vital Signs: Temp Pulse Resp BP Pulse Ox 97.9 F 88 24 H 122/60 95 04/23/19 14:00 04/23/19 15:35 04/23/19 15:35 04/23/19 15:35 04/23/19 15:35 Intake & Output 04/22/19 04/23/19 04/24/19 06:59 06:59 06:59 Intake Total 227 Balance 227 Weight 96.162 kg 100.8 kg Exam: General: Patient is sedated and restless in bed. HEENT: There is pallor but no jaundice. PERRLA. Oropharynx normal Respiratory: No chest deformity. No respiratory distress. Chest wall palpitation was unremarkable. Breath sounds were normal Cardiovascular: Heart sounds 1 and 2 normal with no murmurs. Abdominal: Not distended. Soft and nontender. Liver and spleen not palpable. No ascites demonstrated. Bowel sounds active. Rectal examination was deferred. Extremities: No edema Neurological: Not examined Results Laboratory Results: 04/23/19 04:18 04/23/19 04:18 04/23/19 04/23/19 04/23/19 04:10 04:18 04:18 WBC 17.6 H RBC 2.84 L Hgb 8.6 L Hct 25.7 L MCV 90 MCH 30.2 MCHC 33.4 RDW 14.1 H Plt Count 184 Seg Neutrophils % 81.9 H VBG pH 7.34 VBG pCO2 34.7 L VBG HCO3 18.2 L VBG Base Excess -6.8 Sodium Potassium Chloride Carbon Dioxide Anion Gap BUN Creatinine Est GFR ( Amer) Glucose Lactic Acid 3.8 H Calcium Phosphorus Magnesium Total Bilirubin AST Alkaline Phosphatase Ammonia Total Protein Albumin Amylase Lipase TSH Urine Color Urine Appearance Urine pH Ur Specific [place] Urine Protein Urine Glucose (UA) Urine Ketones Urine Blood Blood Type Antibody Screen 04/23/19 04/23/19 04/23/19 04:18 04:18 04:18 WBC RBC Hgb Hct MCV MCH MCHC RDW Plt Count Seg Neutrophils % VBG pH VBG pCO2 VBG HCO3 VBG Base Excess Sodium 139.5 Potassium 4.9 Chloride 109 H Carbon Dioxide 20 L Anion Gap 11 BUN 53 H Creatinine 0.83 Est GFR ( Amer) > 60 Glucose 179 H Lactic Acid Calcium 8.2 L Phosphorus 3.1 Magnesium 1.6 Total Bilirubin 0.3 AST 24 Alkaline Phosphatase 34 L Ammonia Total Protein 5.5 L Albumin 2.8 L Amylase < 30 L Lipase 119.7 TSH 1.42 Urine Color Urine Appearance Urine pH Ur Specific [place] Urine Protein Urine Glucose (UA) Urine Ketones Urine Blood Blood Type Antibody Screen 04/23/19 04/23/19 04/23/19 05:21 05:48 06:56 WBC RBC Hgb Hct MCV MCH MCHC RDW Plt Count Seg Neutrophils % VBG pH VBG pCO2 VBG HCO3 VBG Base Excess Sodium Potassium Chloride Carbon Dioxide Anion Gap BUN Creatinine Est GFR ( Amer) Glucose Lactic Acid 4.6 H Calcium Phosphorus Magnesium Total Bilirubin AST Alkaline Phosphatase Ammonia Total Protein Albumin Amylase Lipase TSH Urine Color YELLOW Urine Appearance CLEAR Urine pH 5.0 Ur Specific [place] 1.020 Urine Protein NEGATIVE Urine Glucose (UA) NEGATIVE Urine Ketones TRACE H Urine Blood NEGATIVE Blood Type O POSITIVE Antibody Screen NEGATIVE 04/23/19 04/23/19 09:51 09:51 WBC RBC Hgb Hct MCV MCH MCHC RDW Plt Count Seg Neutrophils % VBG pH VBG pCO2 VBG HCO3 VBG Base Excess Sodium Potassium Chloride Carbon Dioxide Anion Gap BUN Creatinine Est GFR ( Amer) Glucose Lactic Acid 4.9 H Calcium Phosphorus Magnesium Total Bilirubin AST Alkaline Phosphatase Ammonia 14.4 Total Protein Albumin Amylase Lipase TSH Urine Color Urine Appearance Urine pH Ur Specific [place] Urine Protein Urine Glucose (UA) Urine Ketones Urine Blood Blood Type Antibody Screen 04/23/19 04/23/19 04/23/19 04:18 04:18 09:51 Troponin I < 0.012 < 0.012 NT-Pro-B Natriuret Pep 131 H 04/23/19 16:01 Troponin I < 0.012 NT-Pro-B Natriuret Pep Impressions: Cervical Spine CT 04/23/19 00:00 IMPRESSION: No acute fracture or subluxation. Head CT 04/23/19 00:00 IMPRESSION: No acute intracranial findings. Chest X-Ray 04/23/19 03:44 IMPRESSION: Small left pleural effusion. Assessment & Plan - Diagnosis (1) Acute upper GI bleeding Is this a current diagnosis for this admission?: Yes Plan: He has an acute upper GI bleed but the definite source is yet to be identified. I will attempt to clean his gastric blood clots using a large bore irrigation t ube followed by a repeat endoscopy. (2) Acute on chronic blood loss anemia Is this a current diagnosis for this admission?: Yes (3) Syncope due to orthostatic hypotension Is this a current diagnosis for this admission?: Yes
--- NOTE | 2019-04-23 17:17 | Operative Report ---
Operative Report DATE OF SURGERY: 04/23/19 Operative Report: Pre-op diagnosis: Acute upper GI bleeding Post-op diagnosis: 1. GE junction ulcer/tear with active bleeding 2. Grade A erosive esophagitis 3. Small hiatal hernia and esophageal ring Surgery: Esophagogastroduodenoscopy with epinephrine injection Medications: Versed 2mg, propofol was provided by Dr. Montalvo Tissue removed: None Procedure: After informed consent obtained from patient's conscious sedation was initially provided with Versed. I then inserted the gastric lavage tube through the mouth into the stomach. Large amounts of clots was initially aspirated. The double channel endoscope was then passed into the stomach and further into the duodenum. Detailed examination of the duodenum, antrum, and gastric body showed no lesions to explain his GI bleed. View of the fundus was very limited due to the large amount of clots. The endoscope was again removed and attempt was made to aspirate the clots. Overall aspirated 700 mL of large clots but there was still some in the fundus. Later during the endoscopy fresh arterial bleeding was noted at the GE junction along the Z-line/ring circumference. This looked like a small ulcer or a small tear. Another erosion was noted along the Z line. The bleeding site was then injected with epinephrine 1 in 10,000. No active bleeding was identified. I had a better view of the fundus with changing patient's position and no other lesion was identified. He tolerated the procedure well. He required propofol during the procedure provided by the seam stay stitcher. Findings Esophagus: Bleeding ulcer/tear that was injected with epinephrine. A small hiatal hernia was also noted with erosive esophagitis Antrum: Normal Body: Normal Fundus: Limited view Duodenum first part: Normal Duodenum second part: Normal Plan: Continue IV Protonix and discharge with PPI twice daily for the next 8 weeks. Avoid NSAIDs as much as possible. May resume Plavix in a few days. If he bleeds again during this admission his endoscopy will be repeated with intubation OPERATION: .
--- NOTE | 2019-04-23 17:45 | Progress Note ---
Provider Note Provider Note: Date of service 04-23-2019 I was called to the bedside to assist the flight service specialist who was performing EGD. Begun the procedure and required controlled sedation. Had already received Versed and fentanyl but was still quite agitated. Had a bite-block in. Using continuous hemodynamic monitoring every 3 to 5 minutes, with adjunctive resuscitative equipment including code cart, bag mask valve ventilation, Narcan, and backup intubating supplies I personally provided controlled sedation using aliquots of propofol. Patient's pre-procedure ASA classification is 3. Unable to evaluate patient's oral aperture. Thorough mental distance was greater than 3 fingerbreadths. Pressure prior to initiation of control propofol sedation is 115/55 and 5-minute monitoring blood pressure showed the lowest blood pressure 95/71. Rate remained in the 80s to 90s throughout the procedure. Oxygen saturation well maintained a t 95 to 100% using nasal cannula. Respiratory rate between 16-22. The entire procedure took approximately 48 to 50 minutes. Throughout that time 10 mg gram aliquots of propofol were used for controlled sedation. Maintained his airway and remained hemodynamically stable with intact respiratory mechanics. Patient was monitored throughout the case and post procedure multiple examinations were done to assure persistent stability. He was communicative, hemodynamically stable and had no respiratory compromise. Successful completion of conscious sedation with controlled propofol total dose over 50 minutes 110 mg given sequentially and aliquots over 45 minutes. Total time: 65 minutes
--- NOTE | 2019-04-23 18:15 | EKG REPORT ---
SEVERITY:- BORDERLINE ECG - SINUS RHYTHM BORDERLINE T ABNORMALITIES, INFERIOR LEADS : Confirmed by: Nomi Hensley 23-Apr-2019 18:14:59
--- NOTE | 2019-04-23 18:16 | EKG REPORT ---
SEVERITY:- BORDERLINE ECG - SINUS RHYTHM BORDERLINE T ABNORMALITIES, INFERIOR LEADS : Confirmed by: Nomi Hensley 23-Apr-2019 18:15:17
[2019-04-23 20:34] LABS: ABSOLUTE LYMPHOCYTES (AUTO) 1.4 10^3/uL (0.5-4.7); ABSOLUTE MONOCYTES (AUTO) 1.2 10^3/uL (0.1-1.4); ABSOLUTE NEUT (AUTO) 11.5 10^3/uL (1.7-8.2); BASOPHILS % (AUTO) 0.3 % (0-2); HEMATOCRIT 30.6 % (37.9-51.0); HEMOGLOBIN 10.3 g/dL (13.5-17.0); LYMPHOCYTES % (AUTO) 9.6 % (13-45); MEAN CORPUSCULAR HEMOGLOBIN 30.7 pg (27.0-33.4); MEAN CORPUSCULAR HGB CONC 33.8 g/dL (32.0-36.0); MEAN CORPUSCULAR VOLUME 91 fl (80-97); MONOCYTES % (AUTO) 8.8 % (3-13); PLATELET COUNT 159 10^3/uL (150-450); RED BLOOD COUNT 3.37 10^6/uL (4.35-5.55); SEGMENTED NEUTROPHILS % (AUTO) 81.3 % (42-78); TOTAL CELLS COUNTED % (AUTO) 100 %; WHITE BLOOD COUNT 14.1 10^3/uL (4.0-10.5)
[2019-04-24 04:37] LABS: ABSOLUTE BASOPHILS # (AUTO) 0.1 10^3/uL (0.0-0.2); ABSOLUTE EOSINOPHILS # (AUTO) 0.1 10^3/uL (0.0-0.6); ABSOLUTE MONOCYTES (AUTO) 1.4 10^3/uL (0.1-1.4); ABSOLUTE NEUT (AUTO) 9.7 10^3/uL (1.7-8.2); BASOPHILS % (AUTO) 0.5 % (0-2); EOSINOPHILS % (AUTO) 0.4 % (0-6); HEMATOCRIT 27.7 % (37.9-51.0); HEMOGLOBIN 9.5 g/dL (13.5-17.0); LYMPHOCYTES % (AUTO) 14.7 % (13-45); MEAN CORPUSCULAR HEMOGLOBIN 30.6 pg (27.0-33.4); MEAN CORPUSCULAR HGB CONC 34.5 g/dL (32.0-36.0); MEAN CORPUSCULAR VOLUME 89 fl (80-97); MONOCYTES % (AUTO) 10.9 % (3-13); PLATELET COUNT 156 10^3/uL (150-450); RED BLOOD COUNT 3.11 10^6/uL (4.35-5.55); RED CELL DISTRIBUTION WIDTH 14.9 % (11.5-14.0); SEGMENTED NEUTROPHILS % (AUTO) 73.5 % (42-78); TOTAL CELLS COUNTED % (AUTO) 100 %; WHITE BLOOD COUNT 13.2 10^3/uL (4.0-10.5)
[2019-04-24 04:38] LABS: PROTHROMBIN TIME 15.3 SEC (11.4-15.4)
[2019-04-24 04:39] LABS: PARTIAL THROMBOPLASTIN TIME 29.7 SEC (23.5-35.8)
[2019-04-24] MEDS: PANTOPRAZOLE SODIUM 40 MG VIAL IV PRN (04:43)
[2019-04-24 04:51] LABS: ALBUMIN 2.7 g/dL (3.5-5.0); ALKALINE PHOSPHATASE 31 U/L (38-126); ANION GAP 9 (5-19); ASPARTATE AMINO TRANSFERASE 19 U/L (17-59); BILIRUBIN,DIRECT 0.2 mg/dL (0.0-0.4); BILIRUBIN,TOTAL 0.5 mg/dL (0.2-1.3); BLOOD UREA NITROGEN 35 mg/dL (7-20); CALCIUM 7.7 mg/dL (8.4-10.2); CARBON DIOXIDE 18 mmol/L (22-30); CHLORIDE 115 mmol/L (98-107); GLUCOSE 175 mg/dL (75-110); PHOSPHORUS 2.6 mg/dL (2.5-4.5); POTASSIUM 4.3 mmol/L (3.6-5.0); TOTAL PROTEIN 5.3 g/dL (6.3-8.2)
[2019-04-24] MEDS ORDERED: INSULIN REG, HUMAN 100 UNIT/ML 3 ML VIAL (PYX) SUBCUT SCH ×2 (08:00→12:00)
--- NOTE | 2019-04-24 08:00 | PDOC PROGRESS REPORT ---
Subjective Progress Note for:: 04/24/19 Subjective:: feels ok this am ng pulled out last pm no further bleeding hct stable overnight. Reason For Visit: ACUTE BLOOD LOSS ANEMIA,UPPER GASTROINTESTINAL Physical Exam Vital Signs: Temp Pulse Resp BP Pulse Ox 98 F 90 19 112/61 98 04/24/19 03:25 04/23/19 20:00 04/24/19 06:00 04/24/19 05:29 04/24/19 06:00 Intake & Output 04/23/19 04/24/19 04/25/19 06:59 06:59 06:59 Intake Total 2077 Output Total 1925 Balance 152 Weight 96.162 kg 100.3 kg General appearance: PRESENT: no acute distress Head exam: PRESENT: normocephalic Eye exam: PRESENT: EOMI Mouth exam: PRESENT: moist Neck exam: PRESENT: full ROM Respiratory exam: PRESENT: decreased breath sounds - left chest Cardiovascular exam: PRESENT: RRR Pulses: PRESENT: normal radial pulses, normal femoral pulses Vascular exam: PRESENT: normal capillary refill Breast: PRESENT: Normal GI/Abdominal exam: PRESENT: soft Rectal exam: PRESENT: deferred Extremities exam: PRESENT: full ROM Musculoskeletal exam: PRESENT: full ROM Neurological exam: PRESENT: alert, awake, oriented to person, oriented to place Psychiatric exam: PRESENT: appropriate affect Skin exam: PRESENT: dry Results Laboratory Results: 04/24/19 04:20 04/24/19 04:20 04/23/19 04/23/19 04/23/19 04:18 04:18 05:48 WBC RBC Hgb Hct MCV MCH MCHC RDW Plt Count Seg Neutrophils % Sodium Potassium Chloride Carbon Dioxide Anion Gap BUN Creatinine Est GFR ( Amer) Glucose Lactic Acid Calcium Phosphorus 3.1 Magnesium 1.6 Total Bilirubin AST Alkaline Phosphatase Ammonia Total Protein Albumin Amylase < 30 L Lipase 119.7 TSH 1.42 Blood Type O POSITIVE Antibody Screen NEGATIVE 04/23/19 04/23/19 04/23/19 09:51 09:51 20:21 WBC RBC Hgb Hct MCV MCH MCHC RDW Plt Count Seg Neutrophils % Sodium Potassium Chloride Carbon Dioxide Anion Gap BUN Creatinine Est GFR ( Amer) Glucose Lactic Acid 4.9 H 3.1 H Calcium Phosphorus Magnesium Total Bilirubin AST Alkaline Phosphatase Ammonia 14.4 Total Protein Albumin Amylase Lipase TSH Blood Type Antibody Screen 04/23/19 04/24/19 04/24/19 20:21 04:20 04:20 WBC 14.1 H 13.2 H RBC 3.37 L 3.11 L Hgb 10.3 L 9.5 L Hct 30.6 L 27.7 L MCV 91 89 MCH 30.7 30.6 MCHC 33.8 34.5 RDW 15.0 H 14.9 H Plt Count 159 156 Seg Neutrophils % 81.3 H 73.5 Sodium 142.2 Potassium 4.3 Chloride 115 H Carbon Dioxide 18 L Anion Gap 9 BUN 35 H Creatinine 0.60 Est GFR ( Amer) > 60 Glucose 175 H Lactic Acid Calcium 7.7 L Phosphorus 2.6 Magnesium 1.7 Total Bilirubin 0.5 AST 19 Alkaline Phosphatase 31 L Ammonia Total Protein 5.3 L Albumin 2.7 L Amylase Lipase TSH Blood Type Antibody Screen 04/23/19 04/23/19 04/23/19 04:18 04:18 09:51 Troponin I < 0.012 < 0.012 NT-Pro-B Natriuret Pep 131 H 04/23/19 04/23/19 16:01 20:21 Troponin I < 0.012 < 0.012 NT-Pro-B Natriuret Pep Impressions: Cervical Spine CT 04/23/19 00:00 IMPRESSION: No acute fracture or subluxation. Head CT 04/23/19 00:00 IMPRESSION: No acute intracranial findings. Chest X-Ray 04/23/19 03:44 IMPRESSION: Small left pleural effusion. Assessment & Plan - Plan Summary Plan Summary: s/p upper gi hemorrhage s/p control iwth epi injection this am no further bleeing recommend start po carafate and ppi ok to start clears check cxr- pending
--- NOTE | 2019-04-24 08:31 | RADIOLOGY REPORT (SQ) ---
EXAM DESCRIPTION: CHEST SINGLE VIEW COMPLETED DATE/TIME: 04/24/2019 8:20 am REASON FOR STUDY: shortness of breath COMPARISON: 04/23/2019 FINDINGS: Single-view chest AP portable upright. Stable. Low lung volumes. Right lung is clear. Persistent patchy left base airspace disease with small effusion, as before. No pneumothorax. TECHNICAL DOCUMENTATION: JOB ID: [id number] Reading location - IP/workstation name: [email or web address]
[2019-04-24] MEDS ORDERED: DEXTROSE 50%-WATER SYRINGE 25 GM/50 ML DOSE IV PRN (11:30)
[2019-04-24] MEDS ORDERED: GLUCAGON,HUMAN RECOMB 1 MG INJ IM PRN (11:30)
[2019-04-24] MEDS ORDERED: DEXTROSE 40% GEL 15 GM TUBE X 2 PO PRN (11:30)
[2019-04-24] MEDS ORDERED: DEXTROSE 40% GEL 15 GM TUBE PO PRN (11:30)
[2019-04-24] MEDS ORDERED: DEXTROSE 50%-WATER SYRINGE 12.5 GM/25 ML DOSE IV PRN (11:30)
--- NOTE | 2019-04-24 11:45 | PDOC CRITICAL CARE PROG REPORT ---
General Date:: 04/24/19 ICU Day:: 2 Hospital Day:: 2 Resuscitation Status: Full Code Medical Power of Network Announcer: Events in the past 12 to 24 Hours:: Patient underwent 2 EGDs yesterday 1 by surgery the second by gastroenterology. He had significant clot burden and evidence of recent bleeding. The second EGD after clot was removed revealed a bleeding ulceration. He was given 2 to 3 injections of epinephrine and has remained stable including hemoglobin and hematocrit since then. He received a total of 3 units of blood and 1 unit of platelets. An NG tube was placed but he is remove this himself. Review of systems relevant to events:: He denies any precordial pain but has mild subcostal discomfort with deep breath. He thinks he may have fell or injured it during lifting. He denies dyspnea, epigastric pain, distinct back pain. Hemodynamics have been non-labile however blood pressure has been on the lower but normal side. Off beta-chang therapy for less than 24 hours his heart rate remains between 70 and 80. He has not had any further hematemesis. Reason for ICU Addmission:: Hypotension with anemia and melena on Plavix - Medications: Medications reviewed and adjusted accordingly: Yes Physical Exam Vital Signs: Temp Pulse Resp BP Pulse Ox 98.2 F 76 18 95/53 L 98 04/24/19 07:59 04/24/19 10:00 04/24/19 10:00 04/24/19 10:00 04/24/19 10:00 Intake & Output 04/23/19 04/24/19 04/25/19 06:59 06:59 06:59 Intake Total 2077 Output Total 1925 Balance 152 Weight 96.162 kg 100.3 kg Weight/Height Weight 100.3 kg Height 5 ft 8 in General appearance: PRESENT: no acute distress, cooperative, morbidly obese, well-nourished Head exam: PRESENT: atraumatic, normocephalic Eye exam: PRESENT: conjunctiva pink, EOMI, PERRLA. ABSENT: conjunctival injection, conjunctiva pale, nystagmus, scleral icterus Mouth exam: PRESENT: dry mucosa, neck supple, tongue midline Neck exam: ABSENT: carotid bruit, JVD, lymphadenopathy, thyromegaly, tracheal deviation Respiratory exam: PRESENT: clear to auscultation juani, decreased breath sounds - At bases, unlabored. ABSENT: accessory muscle use, rales, rhonchi, tachypnea, wheezes Cardiovascular exam: PRESENT: RRR, +S1, +S2. ABSENT: diastolic murmur, gallop Pulses: PRESENT: +1 pedal pulses bilateral Vascular exam: PRESENT: normal capillary refill. ABSENT: pallor GI/Abdominal exam: PRESENT: normal bowel sounds, soft. ABSENT: distended, guarding, mass, organolmegaly, rebound, tenderness Rectal exam: PRESENT: deferred Extremities exam: ABSENT: pedal edema Musculoskeletal exam: PRESENT: normal inspection. ABSENT: deformity, dislocation Neurological exam: PRESENT: alert, awake, oriented to person, oriented to place, oriented to time, oriented to situation, CN II-XII grossly intact. ABSENT: motor sensory deficit Psychiatric exam: PRESENT: appropriate affect, normal mood Skin exam: PRESENT: dry, intact, normal color, warm. ABSENT: cyanosis, mottled, pallor - Patient is dramatically less pale today. He has color in his cheeks and eyegrounds are not pale today, rash Laboratory/Radiographs Laboratory Results: 04/24/19 04:20 04/24/19 04:20 04/23/19 04/23/19 04/23/19 05:48 20:21 20:21 WBC 14.1 H RBC 3.37 L Hgb 10.3 L Hct 30.6 L MCV 91 MCH 30.7 MCHC 33.8 RDW 15.0 H Plt Count 159 Seg Neutrophils % 81.3 H Sodium Potassium Chloride Carbon Dioxide Anion Gap BUN Creatinine Est GFR ( Amer) Glucose Lactic Acid 3.1 H Calcium Phosphorus Magnesium Total Bilirubin AST Alkaline Phosphatase Total Protein Albumin Blood Type O POSITIVE Antibody Screen NEGATIVE 04/24/19 04/24/19 04:20 04:20 WBC 13.2 H RBC 3.11 L Hgb 9.5 L Hct 27.7 L MCV 89 MCH 30.6 MCHC 34.5 RDW 14.9 H Plt Count 156 Seg Neutrophils % 73.5 Sodium 142.2 Potassium 4.3 Chloride 115 H Carbon Dioxide 18 L Anion Gap 9 BUN 35 H Creatinine 0.60 Est GFR ( Amer) > 60 Glucose 175 H Lactic Acid Calcium 7.7 L Phosphorus 2.6 Magnesium 1.7 Total Bilirubin 0.5 AST 19 Alkaline Phosphatase 31 L Total Protein 5.3 L Albumin 2.7 L Blood Type Antibody Screen 04/23/19 04/23/19 04/23/19 04:18 04:18 09:51 Troponin I < 0.012 < 0.012 NT-Pro-B Natriuret Pep 131 H 04/23/19 04/23/19 16:01 20:21 Troponin I < 0.012 < 0.012 NT-Pro-B Natriuret Pep Impressions: Cervical Spine CT 04/23/19 00:00 IMPRESSION: No acute fracture or subluxation. Head CT 04/23/19 00:00 IMPRESSION: No acute intracranial findings. All labs, radiographs, diagnostic studies and EKGs were personally reviewed: Yes In addition, reports of radiographic and diagnostic studies were read: Yes Assessment and Plan - Diagnosis (1) Hypotension due to hypovolemia Is this a current diagnosis for this admission?: Yes (2) Syncope and collapse Is this a current diagnosis for this admission?: Yes (3) Syncope due to orthostatic hypotension Is this a current diagnosis for this admission?: Yes (4) Acute on chronic blood loss anemia Is this a current diagnosis for this admission?: Yes (5) Anticoagulant-induced bleeding Is this a current diagnosis for this admission?: Yes (6) Upper gastrointestinal bleeding Is this a current diagnosis for this admission?: Yes (7) Lactic acidosis Is this a current diagnosis for this admission?: Yes Plan Summary: Patient has remained hematologicaly and hemodynamically stable since his admission yesterday. He had a significant clot burden in his stomach signifying significant bleed. This appears to be related to the excessive Motrin he had been taking in the face of Plavix and aspirin. He understands that this can no longer use in combination and we have counseled him on the use of other medications such as Tylenol. Appreciate both surgery and gastroenterology input and assistance yesterday with this patient's care. We will monitor him in the ICU during his initiation of clear liquids. We will also recheck a hemoglobin and hematocrit. If both of these factors are unremarkable and he remains stable he may meet suitability for transition to a regular medical floor. I have held his beta-chang for now but will need to be reconsidered in the next 24 hours. Would suggest a short acting beta-chang. We will monitor him for rebound tachycardia. His chest x-ray shows atelectasis and poor lung volumes and ordered incentive spirometry. Have ordered ambulation and mobilization to improve lung volumes. We will need to maintain vigilance for any aspiration which have been known to occur with EGDs. Evaluation of his chest x-ray is consistent with atelectasis. There is some mild hypervascularity and given his hyperchloremic metabolic acidosis I have ordered Lasix for the next 24 hours and have discontinued his IV fluids. Continue to hold his metformin until his lactic acid improves. Glucose management with subcutaneous insulin coverage. Critical Time Critical Time (minutes): 0 - 12265 Level of Care: TELE Within: within 48 hours -: 1. The care of a critical patient is a dynamic process. This note is a outbound sales representative synopsis but static in nature. The timeframe for treatments given in order is not necessarily the actual time these treatments may have been done. 2. This patient requires critical care secondary to ongoing requirements for therapy not offered or safe outside the critical care environment. Transfer to a lower level of care will result in altered life or limb morbidity and mortality. 3. Multidisciplinary rounds completed. 4. ABCDE bundle addressed.
[2019-04-24] MEDS: SUCRALFATE 1 GM TABLET PO SCH ×3 (12:08→23:13)
[2019-04-24] MEDS: FUROSEMIDE INJ/PF 20 MG/2 ML SDV IV SCH ×2 (12:10→22:02)
[2019-04-24 14:16] LABS: HEMATOCRIT 28.2 % (37.9-51.0); HEMOGLOBIN 9.8 g/dL (13.5-17.0); MEAN CORPUSCULAR HEMOGLOBIN 31.4 pg (27.0-33.4); MEAN CORPUSCULAR HGB CONC 34.6 g/dL (32.0-36.0); MEAN CORPUSCULAR VOLUME 91 fl (80-97); PLATELET COUNT 164 10^3/uL (150-450); RED BLOOD COUNT 3.11 10^6/uL (4.35-5.55); RED CELL DISTRIBUTION WIDTH 14.9 % (11.5-14.0); WHITE BLOOD COUNT 11.8 10^3/uL (4.0-10.5)
[2019-04-24] MEDS ORDERED: PANTOPRAZOLE SODIUM 40 MG VIAL IV ONE (16:45)
[2019-04-24 20:43] LABS: ABSOLUTE BASOPHILS # (AUTO) 0.1 10^3/uL (0.0-0.2); ABSOLUTE EOSINOPHILS # (AUTO) 0.2 10^3/uL (0.0-0.6); ABSOLUTE LYMPHOCYTES (AUTO) 1.5 10^3/uL (0.5-4.7); ABSOLUTE MONOCYTES (AUTO) 1.1 10^3/uL (0.1-1.4); ABSOLUTE NEUT (AUTO) 8.6 10^3/uL (1.7-8.2); BASOPHILS % (AUTO) 0.5 % (0-2); EOSINOPHILS % (AUTO) 2.1 % (0-6); HEMOGLOBIN 9.1 g/dL (13.5-17.0); LYMPHOCYTES % (AUTO) 13.2 % (13-45); MEAN CORPUSCULAR HEMOGLOBIN 30.5 pg (27.0-33.4); MEAN CORPUSCULAR HGB CONC 33.7 g/dL (32.0-36.0); MEAN CORPUSCULAR VOLUME 91 fl (80-97); MONOCYTES % (AUTO) 9.2 % (3-13); PLATELET COUNT 149 10^3/uL (150-450); RED BLOOD COUNT 2.98 10^6/uL (4.35-5.55); TOTAL CELLS COUNTED % (AUTO) 100 %; WHITE BLOOD COUNT 11.5 10^3/uL (4.0-10.5)
[2019-04-25 04:36] LABS: ABSOLUTE BASOPHILS # (AUTO) 0.1 10^3/uL (0.0-0.2); ABSOLUTE EOSINOPHILS # (AUTO) 0.3 10^3/uL (0.0-0.6); ABSOLUTE LYMPHOCYTES (AUTO) 1.5 10^3/uL (0.5-4.7); ABSOLUTE MONOCYTES (AUTO) 1.1 10^3/uL (0.1-1.4); ABSOLUTE NEUT (AUTO) 8.7 10^3/uL (1.7-8.2); BASOPHILS % (AUTO) 0.7 % (0-2); EOSINOPHILS % (AUTO) 2.5 % (0-6); HEMATOCRIT 27.7 % (37.9-51.0); HEMOGLOBIN 9.5 g/dL (13.5-17.0); LYMPHOCYTES % (AUTO) 13.2 % (13-45); MEAN CORPUSCULAR HEMOGLOBIN 31.1 pg (27.0-33.4); MEAN CORPUSCULAR HGB CONC 34.3 g/dL (32.0-36.0); MEAN CORPUSCULAR VOLUME 90 fl (80-97); MONOCYTES % (AUTO) 9.8 % (3-13); PLATELET COUNT 166 10^3/uL (150-450); RED BLOOD COUNT 3.07 10^6/uL (4.35-5.55); RED CELL DISTRIBUTION WIDTH 15.5 % (11.5-14.0); SEGMENTED NEUTROPHILS % (AUTO) 73.8 % (42-78); TOTAL CELLS COUNTED % (AUTO) 100 %; WHITE BLOOD COUNT 11.7 10^3/uL (4.0-10.5)
[2019-04-25 04:57] LABS: ANION GAP 8 (5-19); BLOOD UREA NITROGEN 16 mg/dL (7-20); CALCIUM 8.3 mg/dL (8.4-10.2); CARBON DIOXIDE 23 mmol/L (22-30); CHLORIDE 108 mmol/L (98-107); GLUCOSE 163 mg/dL (75-110); PHOSPHORUS 2.9 mg/dL (2.5-4.5)
[2019-04-25] MEDS: PANTOPRAZOLE SODIUM 40 MG VIAL IV SCH ×2 (05:34→17:13)
[2019-04-25] MEDS: SUCRALFATE 1 GM TABLET PO SCH ×3 (05:34→17:13)
--- NOTE | 2019-04-25 09:06 | PDOC CRITICAL CARE PROG REPORT ---
General Date:: 04/25/19 ICU Day:: 3 - Telemetry status. No bed available Hospital Day:: 3 Resuscitation Status: Full Code Medical Power of Php Programmer: Events in the past 12 to 24 Hours:: 04.25.2019: The patient has had no evidence of further bleeding. Repeat hemoglobin hematocrit have remained above 9 without significant fluctuation. He tolerated clear liquids well and has been advanced to a full liquid diet in preparation for enhancement to regular consistency. Downgraded to telemetry status yesterday but unable to be transferred out of the ICU due to bed capacity issues. 04.24.2019:Patient underwent 2 EGDs yesterday 1 by surgery the second by gastroenterology. He had significant clot burden and evidence of recent bleeding. The second EGD after clot was removed revealed a bleeding ulceration. He was given 2 to 3 injections of epinephrine and has remained stable including hemoglobin and hematocrit since then. He received a total of 3 units of blood and 1 unit of platelets. An NG tube was placed but he is remove this himself. Review of systems relevant to events:: 04.25.2019: Patient denies chest pain or shortness of breath. Has been using his incentive spirometry. He does have what he described as mild aches and pains from his fall but has no distinct pain in his chest today. There is been no hemodynamic lability. He has been off of his beta-chang. His blood pressure and heart rate have remained non-labile. 04.24.2019:He denies any precordial pain but has mild subcostal discomfort with deep breath. He thinks he may have fell or injured it during lifting. He denies dyspnea, epigastric pain, distinct back pain. Hemodynamics have been non-labile however blood pressure has been on the lower but normal side. Off beta-chang therapy for less than 24 hours his heart rate remains between 70 and 80. He has not had any further hematemesis. Reason for ICU Addmission:: Hypotension with anemia and melena on Plavix - Medications: Medications reviewed and adjusted accordingly: Yes Physical Exam Vital Signs: Temp Pulse Resp BP Pulse Ox 98.9 F 89 15 113/55 L 95 04/25/19 07:59 04/25/19 07:59 04/25/19 07:59 04/25/19 07:59 04/25/19 07:59 Intake & Output 03/04/25/19 04/26/19 06:59 06:59 06:59 Intake Total 3311 9167 Output Total 5351 0350 Balance 152 -2613 Weight 100.3 kg 97.6 kg Weight/Height Weight 97.6 kg Height 5 ft 8 in General appearance: PRESENT: no acute distress, obese, well-developed, well-nourished Exam: Pleasant nontoxic communicative 68-year-old male no active distress he is awake alert oriented x4. Head exam: PRESENT: atraumatic, normocephalic Eye exam: PRESENT: conjunctiva pink, EOMI, PERRLA. ABSENT: conjunctival injection, conjunctiva pale, nystagmus, periorbital swelling, scleral icterus Ear exam: PRESENT: normal external ear exam. ABSENT: bleeding Mouth exam: PRESENT: moist, neck supple Teeth exam: PRESENT: edentulous - Top teeth are dentures, poor dentation Neck exam: ABSENT: carotid bruit, JVD, lymphadenopathy, thyromegaly Respiratory exam: PRESENT: clear to auscultation juani. ABSENT: accessory muscle use, rales, rhonchi, wheezes Cardiovascular exam: PRESENT: RRR, +S1, +S2. ABSENT: gallop, rubs Pulses: PRESENT: normal dorsalis pedis pul, +2 pedal pulses bilateral GI/Abdominal exam: PRESENT: normal bowel sounds, soft. ABSENT: ascites, distended, guarding, mass, organolmegaly, rebound, tenderness Rectal exam: PRESENT: deferred Gentrourinary exam: ABSENT: indwelling catheter Extremities exam: ABSENT: pedal edema Musculoskeletal exam: PRESENT: normal inspection. ABSENT: deformity, disloca tion Neurological exam: PRESENT: alert, awake, oriented to person, oriented to place, oriented to time, oriented to situation, CN II-XII grossly intact. ABSENT: motor sensory deficit, aphasic Psychiatric exam: PRESENT: appropriate affect, normal mood. ABSENT: homicidal ideation, suicidal ideation Skin exam: PRESENT: dry, intact, warm. ABSENT: cyanosis, mottled, pallor, rash Laboratory/Radiographs Laboratory Results: 04/25/19 04:20 04/25/19 04:20 04/24/19 04/24/19 04/24/19 13:53 13:53 20:28 WBC 11.8 H 11.5 H RBC 3.11 L 2.98 L Hgb 9.8 L 9.1 L Hct 28.2 L 27.0 L MCV 91 91 MCH 31.4 30.5 MCHC 34.6 33.7 RDW 14.9 H 15.0 H Plt Count 164 149 L Seg Neutrophils % 75.0 Sodium Potassium Chloride Carbon Dioxide Anion Gap BUN Creatinine Est GFR ( Amer) Glucose Lactic Acid 2.2 H Calcium Phosphorus Magnesium Ammonia 04/25/19 04/25/19 04/25/19 04:20 04:20 04:20 WBC 11.7 H RBC 3.07 L Hgb 9.5 L Hct 27.7 L MCV 90 MCH 31.1 MCHC 34.3 RDW 15.5 H Plt Count 166 Seg Neutrophils % 73.8 Sodium 138.7 Potassium 4.0 Chloride 108 H Carbon Dioxide 23 Anion Gap 8 BUN 16 Creatinine 0.66 Est GFR ( Amer) > 60 Glucose 163 H Lactic Acid Calcium 8.3 L Phosphorus 2.9 Magnesium 1.7 Ammonia < 8.7 L 04/23/19 04/23/19 04/23/19 04:18 04:18 09:51 Troponin I < 0.012 < 0.012 NT-Pro-B Natriuret Pep 131 H 04/23/19 04/23/19 16:01 20:21 Troponin I < 0.012 < 0.012 NT-Pro-B Natriuret Pep Impressions: Cervical Spine CT 04/23/19 00:00 IMPRESSION: No acute fracture or subluxation. Head CT 04/23/19 00:00 IMPRESSION: No acute intracranial findings. All labs, radiographs, diagnostic studies and EKGs were personally reviewed: Yes In addition, reports of radiographic and diagnostic studies were read: Yes Assessment and Plan - Diagnosis (1) Hypotension due to hypovolemia Is this a current diagnosis for this admission?: Yes (2) Syncope and collapse Is this a current diagnosis for this admission?: Yes (3) Syncope due to orthostatic hypotension Is this a current diagnosis for this admission?: Yes (4) Acute on chronic blood loss anemia Is this a current diagnosis for this admission?: Yes (5) Anticoagulant-induced bleeding Is this a current diagnosis for this admission?: Yes (6) Upper gastrointestinal bleeding Is this a current diagnosis for this admission?: Yes (7) Lactic acidosis Is this a current diagnosis for this admission?: Yes Plan Summary: 04.25.2019: Patient continues on an expected trajectory and has been stable in the last 24 hours. He still requires inpatient hospitalization as we transition him to his oral Lopressor therapy. He typically is on 100 mg in a 24-hour period with an ext ended release formulation. Because his blood pressures had been somewhat low normal I have started him on 25 twice daily with the expectation that we may need to increase. To that end he is able to be discharged from the ICU but certainly not home. Also held his metformin until his lactic acid completely clears. It has improved but a repeat will be done today at 1500 hrs. Will advance diet and repeat H&H at 1500 as well. We will need continued persistent reinforcement about not using ibuprofen or aspirin while on Plavix. Reintroduction of aspirin Plavix and statins will need to be considered prior to discharge. Treatment suitable criteria for transition out of ICU 04.24.2019 Patient has remained hematologicaly and hemodynamically stable since his admission yesterday. He had a significant clot burden in his stomach signifying significant bleed. This appears to be related to the excessive Motrin he had been taking in the face of Plavix and aspirin. He understands that this can no longer use in combination and we have counseled him on the use of other medications such as Tylenol. Appreciate both surgery and gastroenterology input and assistance yesterday with this patient's care. We will monitor him in the ICU during his initiation of clear liquids. We will also recheck a hemoglobin and hematocrit. If both of these factors are unremarkable and he remains stable he may meet suitability for transition to a regular medical floor. I have held his beta-chang for now but will need to be reconsidered in the next 24 hours. Would suggest a short acting beta-chang. We will monitor him for rebound tachycardia. His chest x-ray shows atelectasis and poor lung volumes and ordered incentive spirometry. Have ordered ambulation and mobilization to improve lung volumes. We will need to maintain vigilance for any aspiration which have been known to occur with EGDs. Evaluation of his chest x-ray is consistent with atelectasis. There is some mild hypervascularity and given his hyperchloremic metabolic acidosis I have ordered Lasix for the next 24 hours and have discontinued his IV fluids. Continue to hold his metformin until his lactic acid improves. Glucose management with subcutaneous insulin coverage. Critical Time Critical Time (minutes): 0 - [id number] Level of Care: TELE Within: within 48 hours -: 1. The care of a critical patient is a dynamic process. This note is a senior outside sales representative synopsis but static in nature. The timeframe for treatments g iven in order is not necessarily the actual time these treatments may have been done. 2. This patient requires critical care secondary to ongoing requirements for therapy not offered or safe outside the critical care environment. Transfer to a lower level of care will result in altered life or limb morbidity and mortality. 3. Multidisciplinary rounds completed. 4. ABCDE bundle addressed.
[2019-04-25] MEDS: METOPROLOL TARTRATE 25 MG TABLET PO SCH ×2 (09:52→21:19)
[2019-04-25] MEDS: FUROSEMIDE INJ/PF 20 MG/2 ML SDV IV SCH (09:52)
[2019-04-25 14:55] LABS: HEMATOCRIT 26.5 % (37.9-51.0); HEMOGLOBIN 9.2 g/dL (13.5-17.0); MEAN CORPUSCULAR HEMOGLOBIN 31.3 pg (27.0-33.4); MEAN CORPUSCULAR HGB CONC 34.7 g/dL (32.0-36.0); MEAN CORPUSCULAR VOLUME 90 fl (80-97); PLATELET COUNT 155 10^3/uL (150-450); RED BLOOD COUNT 2.94 10^6/uL (4.35-5.55); RED CELL DISTRIBUTION WIDTH 15.2 % (11.5-14.0); WHITE BLOOD COUNT 11.6 10^3/uL (4.0-10.5)
[2019-04-26] MEDS: SUCRALFATE 1 GM TABLET PO SCH ×2 (00:42→05:39)
[2019-04-26] MEDS: PANTOPRAZOLE SODIUM 40 MG VIAL IV SCH (05:28)
[2019-04-26 05:34] LABS: ABSOLUTE BASOPHILS # (AUTO) 0.1 10^3/uL (0.0-0.2); ABSOLUTE EOSINOPHILS # (AUTO) 0.6 10^3/uL (0.0-0.6); ABSOLUTE LYMPHOCYTES (AUTO) 1.6 10^3/uL (0.5-4.7); ABSOLUTE MONOCYTES (AUTO) 1.2 10^3/uL (0.1-1.4); ABSOLUTE NEUT (AUTO) 7.3 10^3/uL (1.7-8.2); BASOPHILS % (AUTO) 0.6 % (0-2); EOSINOPHILS % (AUTO) 5.4 % (0-6); HEMOGLOBIN 9.3 g/dL (13.5-17.0); LYMPHOCYTES % (AUTO) 15.3 % (13-45); MEAN CORPUSCULAR HEMOGLOBIN 30.9 pg (27.0-33.4); MEAN CORPUSCULAR HGB CONC 34.4 g/dL (32.0-36.0); MEAN CORPUSCULAR VOLUME 90 fl (80-97); MONOCYTES % (AUTO) 11.1 % (3-13); PLATELET COUNT 161 10^3/uL (150-450); RED CELL DISTRIBUTION WIDTH 15.7 % (11.5-14.0); SEGMENTED NEUTROPHILS % (AUTO) 67.6 % (42-78); TOTAL CELLS COUNTED % (AUTO) 100 %; WHITE BLOOD COUNT 10.7 10^3/uL (4.0-10.5)
[2019-04-26 05:50] LABS: ANION GAP 8 (5-19); BLOOD UREA NITROGEN 15 mg/dL (7-20); CALCIUM 8.2 mg/dL (8.4-10.2); CARBON DIOXIDE 27 mmol/L (22-30); CHLORIDE 102 mmol/L (98-107); GLUCOSE 165 mg/dL (75-110); PHOSPHORUS 3.1 mg/dL (2.5-4.5)
[2019-04-26 05:55] LABS: POTASSIUM 3.8 mmol/L (3.6-5.0)
[2019-04-26] MEDS: METOPROLOL TARTRATE 25 MG TABLET PO SCH (09:10)
[2019-04-26 11:42] VITALS: BP 116/56
--- NOTE | 2019-04-26 13:06 | PDOC DISCHARGE SUMMARY ---
Impression - Admit/DC Date/PCP Admission Date/Primary Care Provider: 04/23/19 07:20 Discharge Date: 04/26/19 - Additional Information Resuscitation Status: Full Code Discharge Diet: Cardiac, Diabetic Discharge Activity: Activity As Tolerated Referrals: ASHLEY DECKER MD [ACTIVE STAFF] - 05/04/19 1:15 pm Prescriptions: Sucralfate [Carafate 1 gm Tablet] 1 gm PO Q6 #120 tablet Pantoprazole Sodium [Protonix [address] Tablet] 40 mg PO QAMPM #60 tablet.dr Home Medications: Clopidogrel Bisulfate [Plavix] 75 mg PO DAILY 04/23/19 Diphenhydramine HCl [Allergy Medication] 1 tab PO Q8HP PRN 04/23/19 Metformin HCl [Metformin HCl ER] 1,000 mg PO BID 04/23/19 Metoprolol Succinate 100 mg PO DAILY 04/23/19 Simvastatin 40 mg PO DAILY 04/23/19 Pantoprazole Sodium [Protonix [address] Tablet] 40 mg PO QAMPM #60 tablet.dr 04/26/19 Sucralfate [Carafate 1 gm Tablet] 1 gm PO Q6 #120 tablet 04/26/19 History of Present Illiness History of Present Illness: KATI SOLIS is a 68 year old male presents to Emergency department via EMS after a syncopal episode which occurred at home. Patient used the bathroom and does not remember what happened. He apparently "blacked out". Patient and endorse fatigue, poor appetite, diarrhea and nausea. Patient felt that this was related to being busy, not eating and a recent move. Patient's describes that they have been in the process of moving from [place], [place]. Patient has felt stress and has "not been sleeping right". Patient reports black tarry stool. Patient arrived hypotensive and somewhat disoriented, but improved with IV fluids. CT scan of the head and neck were unremarkable. A Chest x-ray which showed a small left pleural effusion. Patient does endorse several days of dark tarry stools and weakness. Symptoms were similar to patient's GI bleed in 2011. In the emergency department his hemoglobin was found to be 8.5. Examination revealed positive stools but no hematemesis or zeb melena the ER. 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 Patient feels that this was lack of food and he attempted to improve this with the hydrates. He endorses nausea without vomiting. He does not describe any abdominal pain. He does feel slightly short of breath but this improved with oxygen given in the emergency room. He also states that he has been using ibuprophen for aches and pains associated with cleaning up his house and moving. He takes this in addition to Plavix and Aspirin. As noted from ED: Has past history of stroke and CABG. He is also had pleural surgery of his left long for a collapsed lung in the past. He had a previous GI bleed in 2011 and was also found to be severely anemic in 2018 on the basis of a "mild gastric ulcer. He required transfusion of 2 units of packed cells in 2018. Past history significant for hematemesis 2012 upper GI bleed requiring scopic intervention. Patient had another episode of anemia in 2018, requiring 2 units of blood transfusion. Upper endoscopy at that time showed healing ulcer; patient has had several colonoscopies in 2015 and 2018 most recently with polyps only. Patient is on Plavix for history of stent placement. He is status post CABG in 2005. Hospital Course Hospital Course: He received 3 units of packed red blood cells along with IV fluids and his blood pressure stabilized. He had an EGD with results as follows: Post-op diagnosis: 1. GE junction ulcer/tear with active bleeding 2. Grade A erosive esophagitis 3. Small hiatal hernia and esophageal ring Surgery: Esophagogastroduodenoscopy with epinephrine injection It was recommended that he take Protonix and Carafate for 8 weeks and follow-up with gastroenterology. He had apparently been using a lot of NSAIDs lately, and was encouraged to avoid using those. He was also instructed to avoid citrus, soft drinks, caffeine, alcohol, tobacco, and anything he knows that gives him heartburn. He was feeling better and able to tolerate a soft diet. His hemoglobin remained stable. He was ambulating without difficulty. His labs and examination were reassuring and he was discharged in stable condition. He was told that he can restart his Plavix at the end of this week. Physical Exam Vital Signs: Temp Pulse Resp BP Pulse Ox 98.7 F 83 16 124/63 95 04/26/19 11:17 04/26/19 11:17 04/26/19 11:17 04/26/19 11:17 04/26/19 11:17 Intake & Output 04/25/19 04/26/19 04/27/19 06:59 06:59 06:59 Intake Total 1237 720 Output Total 3850 300 Balance -2613 420 Weight 97.6 kg 93.9 kg General appearance: PRESENT: no acute distress, cooperative, obese Respiratory exam: PRESENT: clear to auscultation juani, symmetrical, unlabored. ABSENT: accessory muscle use, chest wall tenderness, crackles, prolonged expiratory phas, retraction, rhonchi, tachypnea, wheezes Cardiovascular exam: PRESENT: RRR, +S1, +S2 Pulses: PRESENT: normal carotid pulses Vascular exam: PRESENT: normal capillary refill GI/Abdominal exam: PRESENT: normal bowel sounds, soft. ABSENT: distended, guarding, rebound, tenderness Extremities exam: ABSENT: clubbing, pedal edema Musculoskeletal exam: PRESENT: ambulatory, normal inspection. ABSENT: deformity Neurological exam: PRESENT: alert, awake, oriented to person, oriented to place, oriented to situation Psychiatric exam: PRESENT: appropriate affect, normal mood Skin exam: PRESENT: dry, warm Results Laboratory Results: WBC 10.7 10^3/uL (4.0-10.5) H 04/26/19 05:18 RBC 3.00 10^6/uL (4.35-5.55) L 04/26/19 05:18 Hgb 9.3 g/dL (13.5-17.0) L 04/26/19 05:18 Hct 27.0 % (37.9-51.0) L 04/26/19 05:18 MCV 90 fl (80-97) 04/26/19 05:18 MCH 30.9 pg (27.0-33.4) 04/26/19 05:18 MCHC 34.4 g/dL (32.0-36.0) 04/26/19 05:18 RDW 15.7 % (11.5-14.0) H 04/26/19 05:18 Plt Count 161 10^3/uL (150-450) 04/26/19 05:18 Lymph % (Auto) 15.3 % (13-45) 04/26/19 05:18 [place] % (Auto) 11.1 % (3-13) 04/26/19 05:18 Eos % (Auto) 5.4 % (0-6) 04/26/19 05:18 Baso % (Auto) 0.6 % (0-2) 04/26/19 05:18 Absolute Neuts (auto) 7.3 10^3/uL (1.7-8.2) 04/26/19 05:18 Absolute Lymphs (auto) 1.6 10^3/uL (0.5-4.7) 04/26/19 05:18 Absolute Monos (auto) 1.2 10^3/uL (0.1-1.4) 04/26/19 05:18 Absolute Eos (auto) 0.6 10^3/uL (0.0-0.6) 04/26/19 05:18 Absolute Basos (auto) 0.1 10^3/uL (0.0-0.2) 04/26/19 05:18 Seg Neutrophils % 67.6 % (42-78) 04/26/19 05:18 PT 15.3 SEC (11.4-15.4) 04/24/19 04:20 INR 1.20 04/24/19 04:20 APTT 29.7 SEC (23.5-35.8) 04/24/19 04:20 VBG pH 7.34 (7.30-7.42) 04/23/19 04:10 VBG pCO2 34.7 mmHg (35-63) L 04/23/19 04:10 VBG HCO3 18.2 mmol/L (20-32) L 04/23/19 04:10 VBG Base Excess -6.8 mmol/L 04/23/19 04:10 Sodium 137.4 mmol/L (137-145) 04/26/19 05:18 Potassium 3.8 mmol/L (3.6-5.0) 04/26/19 05:18 Chloride 102 mmol/L (98-107) 04/26/19 05:18 Carbon Dioxide 27 mmol/L (22-30) 04/26/19 05:18 Anion Gap 8 (5-19) 04/26/19 05:18 BUN 15 mg/dL (7-20) 04/26/19 05:18 Creatinine 0.76 mg/dL (0.52-1.25) 04/26/19 05:18 Est GFR ( Amer) > 60 (>60) 04/26/19 05:18 Est GFR (MDRD) Non-Af > 60 (>60) 04/26/19 05:18 Glucose 165 mg/dL (75-110) H 04/26/19 05:18 POC Glucose 174 mg/dL (70-110) H 04/26/19 11:08 Lactic Acid 1.0 mmol/L (0.7-2.1) 04/26/19 05:18 Calcium 8.2 mg/dL (8.4-10.2) L 04/26/19 05:18 Phosphorus 3.1 mg/dL (2.5-4.5) 04/26/19 05:18 Magnesium 1.7 mg/dL (1.6-2.3) 04/26/19 05:18 Total Bilirubin 0.5 mg/dL (0.2-1.3) 04/24/19 04:20 Direct Bilirubin 0.2 mg/dL (0.0-0.4) 04/24/19 04:20 Neonat Total Bilirubin Not Reportable 04/24/19 04:20 Neonat Direct Bilirubin Not Reportable 04/24/19 04:20 Neonat Indirect Bili Not Reportable 04/24/19 04:20 AST 19 U/L (17-59) 04/24/19 04:20 ALT 15 U/L (<50) 04/24/19 04:20 Alkaline Phosphatase 31 U/L (38-126) L 04/24/19 04:20 Ammonia < 8.7 umol/L (9-33) L 04/25/19 04:20 Troponin I < 0.012 ng/mL 04/23/19 20:21 NT-Pro-B Natriuret Pep 131 pg/mL (<125) H 04/23/19 04:18 Total Protein 5.3 g/dL (6.3-8.2) L 04/24/19 04:20 Albumin 2.7 g/dL (3.5-5.0) L 04/24/19 04:20 Amylase < 30 U/L (30-110) L 04/23/19 04:18 Lipase 119.7 U/L (23-300) 04/23/19 04:18 TSH 1.42 uIU/mL (0.47-4.68) 04/23/19 04:18 Urine Color YELLOW 04/23/19 05:21 Urine Appearance CLEAR 04/23/19 05:21 Urine pH 5.0 (5.0-9.0) 04/23/19 05:21 Ur Specific [place] 1.020 04/23/19 05:21 Urine Protein NEGATIVE mg/dL (NEGATIVE) 04/23/19 05:21 Urine Glucose (UA) NEGATIVE mg/dL (NEGATIVE) 04/23/19 05:21 Urine Ketones TRACE mg/dL (NEGATIVE) H 04/23/19 05:21 Urine Blood NEGATIVE (NEGATIVE) 04/23/19 05:21 Urine Nitrite (Reflex) NEGATIVE (NEGATIVE) 04/23/19 05:21 Urine Bilirubin NEGATIVE (NEGATIVE) 04/23/19 05:21 Urine Urobilinogen NEGATIVE mg/dL (<2.0) 04/23/19 05:21 Leukocyte Esterase Rfl NEGATIVE (NEGATIVE) 04/23/19 05:21 Urine Mucus (Auto) RARE /LPF 04/23/19 05:21 Urine Ascorbic Acid NEGATIVE (NEGATIVE) 04/23/19 05:21 POC Stool Occult Blood POSITIVE (NEGATIVE) 04/23/19 05:20 Blood Type O POSITIVE 04/23/19 05:48 Blood Type Confirm O POSITIVE 04/23/19 06:56 Antibody Screen NEGATIVE 04/23/19 05:48 Crossmatch See Detail 04/23/19 05:48 04/23/19 04/23/19 04/23/19 04:18 04:18 09:51 Troponin I < 0.012 < 0.012 NT-Pro-B Natriuret Pep 131 H 04/23/19 04/23/19 16:01 20:21 Troponin I < 0.012 < 0.012 NT-Pro-B Natriuret Pep Impressions: Cervical Spine CT 04/23/19 00:00 IMPRESSION: No acute fracture or subluxation. Chest X-Ray 04/23/19 00:00 IMPRESSION: 1. Stable trace left effusion mild left basilar opacities. 2. Prior CABG. Head CT 04/23/19 00:00 IMPRESSION: No acute intracranial findings. Chest X-Ray 04/23/19 03:44 IMPRESSION: Small left pleural effusion. Plan Time Spent: Greater than 30 Minutes Stroke Is this a Stroke Patient?: No Acute Heart Failure - Is this a Heart Failure Patient?: No
== END 2019-04-26 11:58 | disposition home or self-care (01) | DRG 378 ==
LOC: ER 03:35 → EH 07:20 → ICU 09:37 → 4N 04-25 10:29
PROVIDERS: ADMIT Internal Medicine Critical Care Medicine; ATTEND Internal Medicine Critical Care Medicine
PROC: 3E0G8GC Introduction of Other Therapeutic Substance into Upper GI, Via Natural or Artificial Opening Endoscopic (ICD-10-PCS; 2019-04-23)
PROC: 3E1G88Z Irrigation of Upper GI using Irrigating Substance, Via Natural or Artificial Opening Endoscopic (ICD-10-PCS; 2019-04-23)
PROC: 30233R1 Transfusion of Nonautologous Platelets into Peripheral Vein, Percutaneous Approach (ICD-10-PCS; 2019-04-23)
PROC: 30233N1 Transfusion of Nonautologous Red Blood Cells into Peripheral Vein, Percutaneous Approach (ICD-10-PCS; 2019-04-23)
PROC: 0W3P8ZZ Control Bleeding in Gastrointestinal Tract, Via Natural or Artificial Opening Endoscopic (ICD-10-PCS; principal; 2019-04-23 13:30)
DX: K25.4 Chronic or unspecified gastric ulcer with hemorrhage (principal); D62 Acute posthemorrhagic anemia; D68.32 Hemorrhagic disorder due to extrinsic circulating anticoagulants; E87.2 Acidosis; K22.10 Ulcer of esophagus without bleeding; K44.9 Diaphragmatic hernia without obstruction or gangrene; K22.2 Esophageal obstruction; T45.525A Adverse effect of antithrombotic drugs, initial encounter; I25.10 Atherosclerotic heart disease of native coronary artery without angina pectoris; E86.1 Hypovolemia; T39.015A Adverse effect of aspirin, initial encounter; T39.315A Adverse effect of propionic acid derivatives, initial encounter; I95.1 Orthostatic hypotension; K21.9 Gastro-esophageal reflux disease without esophagitis; M17.11 Unilateral primary osteoarthritis, right knee; E11.9 Type 2 diabetes mellitus without complications; Z95.1 Presence of aortocoronary bypass graft; Z86.010 Personal history of colon polyps; Z79.02 Long term (current) use of antithrombotics/antiplatelets; Z79.84 Long term (current) use of oral hypoglycemic drugs; Z86.73 Personal history of transient ischemic attack (TIA), and cerebral infarction without residual deficits; I25.2 Old myocardial infarction; Z87.11 Personal history of peptic ulcer disease; Z88.5 Allergy status to narcotic agent
CPT/HCPCS: 36415; 36430; 70450; 71045; 72125; 80048; 80053; 81001; 82140; 82150; 82270; 82803; 82962; 83605; 83690; 83735; 83880; 84100; 84443; 84484; 85025; 85610; 85730; 86850; 86900; 86901; 86920; 87040; 87070; 93005; 93010; 94799; 96365; 96375; 99156; 99157; 99233; 99291; C9113; J0171; J1200; J1610; J1940; J2250; J2310; J2405; J2543; J2704; J3010; J3490; J7030; J7120; P9016; P9035

== ENCOUNTER 2019-05-10 09:18 | Emergency (ER) | payer MEDICARE, OTHER ==
[2019-05-10 10:46] LABS: ABSOLUTE BASOPHILS # (AUTO) 0.1 10^3/uL (0.0-0.2); ABSOLUTE EOSINOPHILS # (AUTO) 0.2 10^3/uL (0.0-0.6); ABSOLUTE LYMPHOCYTES (AUTO) 1.2 10^3/uL (0.5-4.7); ABSOLUTE MONOCYTES (AUTO) 0.7 10^3/uL (0.1-1.4); ABSOLUTE NEUT (AUTO) 5.8 10^3/uL (1.7-8.2); BASOPHILS % (AUTO) 0.9 % (0-2); EOSINOPHILS % (AUTO) 2.1 % (0-6); HEMATOCRIT 26.2 % (37.9-51.0); HEMOGLOBIN 8.5 g/dL (13.5-17.0); LYMPHOCYTES % (AUTO) 15.4 % (13-45); MEAN CORPUSCULAR HEMOGLOBIN 27.2 pg (27.0-33.4); MEAN CORPUSCULAR HGB CONC 32.3 g/dL (32.0-36.0); MONOCYTES % (AUTO) 9.1 % (3-13); PLATELET COUNT 303 10^3/uL (150-450); RED BLOOD COUNT 3.11 10^6/uL (4.35-5.55); SEGMENTED NEUTROPHILS % (AUTO) 72.5 % (42-78); TOTAL CELLS COUNTED % (AUTO) 100 %
[2019-05-10 10:51] LABS: MEAN CORPUSCULAR VOLUME 84 fl (80-97)
[2019-05-10 11:15] LABS: ALBUMIN 3.3 g/dL (3.5-5.0); ALKALINE PHOSPHATASE 57 U/L (38-126); ANION GAP 10 (5-19); ASPARTATE AMINO TRANSFERASE 22 U/L (17-59); BILIRUBIN,TOTAL 0.6 mg/dL (0.2-1.3); BLOOD UREA NITROGEN 15 mg/dL (7-20); CALCIUM 8.5 mg/dL (8.4-10.2); CARBON DIOXIDE 23 mmol/L (22-30); CHLORIDE 106 mmol/L (98-107); GLUCOSE 150 mg/dL (75-110); POTASSIUM 3.8 mmol/L (3.6-5.0); TOTAL PROTEIN 6.1 g/dL (6.3-8.2)
[2019-05-10 11:17] LABS: CREATINE KINASE < 20 U/L (55-170)
--- NOTE | 2019-05-10 11:32 | RADIOLOGY REPORT (SQ) ---
EXAM DESCRIPTION: CHEST SINGLE VIEW IMAGES COMPLETED DATE/TIME: 05/10/2019 11:16 am REASON FOR STUDY: shortness of breath COMPARISON: 04/24/2019 NUMBER OF VIEWS: One view. TECHNIQUE: Single frontal radiographic image of the chest acquired. LIMITATIONS: None. FINDINGS: LUNGS AND PLEURA: Persistent small left pleural effusion and associated airspace disease n ot significantly changed. The right lung is clear. MEDIASTINUM AND HEART: Stable heart size and mediastinal structures. BONY STRUCTURES: No acute findings. HARDWARE: CABG. OTHER: No other significant finding. IMPRESSION: Chronic left pleural effusion and associated atelectasis or pneumonia. TECHNICAL DOCUMENTATION: JOB ID: [id number] Reading location - IP/workstation name: [email or web address]
--- NOTE | 2019-05-10 13:23 | EKG REPORT ---
SEVERITY:- ABNORMAL ECG - SINUS RHYTHM PROBABLE LEFT ATRIAL ABNORMALITY PROBABLE INFERIOR INFARCT, AGE INDETERMINATE PROBABLE POSTERIOR INFARCT : Confirmed by: Nomi Hensley 10-May-2019 13:22:49
[2019-05-10 14:27] LABS: APPEARANCE,URINE CLEAR; BILIRUBIN,URINE NEGATIVE (NEGATIVE); COLOR,URINE YELLOW; GLUCOSE, URINE NEGATIVE (NEGATIVE); KETONES,URINE NEGATIVE (NEGATIVE); LEUKOCYTE ESTERASE,URINE NEGATIVE (NEGATIVE); NITRITE,URINE NEGATIVE (NEGATIVE); PROTEIN,URINE NEGATIVE (NEGATIVE); URINE SPECIFIC GRAVITY 1.019; UROBILINOGEN,URINE NEGATIVE mg/dL (<2.0)
[2019-05-10] MEDS ORDERED: FUROSEMIDE INJ/PF 40 MG/4 ML SDV IV ONE (14:34)
[2019-05-10] MEDS ORDERED: NITROGLYCERIN 2% OINTMENT 1 GM PACKET TP ONE (14:34)
--- NOTE | 2019-05-10 15:20 | RADIOLOGY REPORT (SQ) ---
EXAM DESCRIPTION: VENOUS BILATERAL LOWER IMAGES COMPLETED DATE/TIME: 05/10/2019 3:06 pm REASON FOR STUDY: elevated d dimer/sobr COMPARISON: None. TECHNIQUE: Dynamic and static maldonado scale and color images acquired of both lower extremity venous sy stems. Selected spectral images acquired with additional compression and augmentation maneuvers. Imag es stored on PACS. LIMITATIONS: None. FINDINGS: RIGHT LEG COMMON FEMORAL AND FEMORAL: Normal phasicity, compression and augmentation. No visualized echogenic m aterial on maldonado scale. No defects on color images. POPLITEAL: Normal compression and augmentation. No visualized echogenic material on maldonado scale. No de fects on color images. CALF VESSELS: Normal compression and augmentation. No visualized echogenic material on maldonado scale. No defects on color image. GSV AND SSV: Normal compression. No visualized echogenic material on maldonado scale. No defects on color images. ANY DEEP VENOUS INSUFFICIENCY: Not evaluated. ANY EVIDENCE OF POPLITEAL CYST: No. OTHER: No other significant finding. LEFT LEG COMMON FEMORAL AND FEMORAL: Normal phasicity, compression and augmentation. No visualized echogenic m aterial on maldonado scale. No defects on color images. POPLITEAL: Normal compression and augmentation. No visualized echogenic material on maldonado scale. No de fects on color images. CALF VESSELS: Normal compression and augmentation. No visualized echogenic material on maldonado scale. No defects on color images. GSV AND SSV: Normal compression. No visualized echogenic material on maldonado scale. No defects on color images. ANY DEEP VENOUS INSUFFICIENCY: Not evaluated. ANY EVIDENCE POPLITEAL CYST: No. OTHER: No other significant finding. IMPRESSION: NO EVIDENCE DVT OR SVT IN EITHER LEG. TECHNICAL DOCUMENTATION: JOB ID: [id number] 2010 [employer]- All Rights Reserved Reading location - IP/workstation name: [facility]
--- NOTE | 2019-05-10 15:28 | RADIOLOGY REPORT (SQ) ---
EXAM DESCRIPTION: CTA CHEST IMAGES COMPLETED DATE/TIME: 05/10/2019 3:07 pm REASON FOR STUDY: sobr/elevated d dimer/left pleural effusion COMPARISON: None. TECHNIQUE: CT scan of the chest performed using helical scanning technique with dynamic intravenous contrast injection. Images reviewed with lung, soft tissue and bone windows. Reconstructed coronal and sagittal MPR images reviewed. Additional 3 dimensional post-processing performed to develop Maximal Intensity Projection images (NC P). All images stored on PACS. All CT scanners at this facility use dose modulation, iterative reconstruction, and/or weight based d osing when appropriate to reduce radiation dose to as low as reasonably achievable (ALARA). [facility]: Dose Right [facility]: CareDose [facility]: Dose Right [facility]: Teradose 4D [facility]: WideAngle Metrics CONTRAST TYPE AND DOSE: contrast/concentration: Isovue 350.00 mg/ml; Total Contrast Delivered: 67.0 ml; Total Saline Delivered: 70.0 ml Contrast bolus adequate for pulmonary arteries and aorta. RENAL FUNCTION: GFR > 60. RADIATION DOSE: CT Rad equipment meets quality standard of care and radiation dose reduction techniq ues were employed. CTDIvol: 13.2 - 27.3 mGy. DLP: 920 mGy-cm. . LIMITATIONS: Motion. FINDINGS: LUNGS AND PLEURA: Diffuse ground-glass attenuation. Interlobular septal thickening. Trac e right pleural effusion. Subsegmental airspace disease left lower lobe. Calcified pleural plaque l eft lower lobe. AORTA AND GREAT VESSELS: No aneurysm. No dissection. HEART: Cardiomegaly. No pericardial effusion. Prior CABG. PULMONARY ARTERIES: No emboli visualized in the main pulmonary arteries or the segmental branches. HILAR AND MEDIASTINAL STRUCTURES: No identified masses or abnormal nodes. HARDWARE: None in the chest. UPPER ABDOMEN: Cirrhotic changes in the liver. No acute findings. Limited exam. THYROID AND OTHER SOFT TISSUES: No masses. No adenopathy. BONES: No acute or significant finding. 3D MIPS: Confirm above findings. OTHER: No other significant finding. IMPRESSION: 1. No PE. 2. Mild CHF. 3. Cirrhosis. COMMENT: Quality ID # [id number]: Final reports with documentation of one or more dose reduction techniques (e.g., Automated exposure control, adjustment of the mA and/or kV according to patient size, use of iterative reconstruction technique) TECHNICAL DOCUMENTATION: JOB ID: [id number] [employer]- All Rights Reserved Reading location - IP/workstation name: [email or web address]
--- NOTE | 2019-05-10 16:44 | PDOC CONSULTATION ---
Consultation Consult Date: 05/10/19 Attending physician:: GORGE DORAN Provider Consulted: YULIYA MOSQUEDA History of Present Illness Patient complains of: shortness of breath History of Present Illness: KATI SOLIS is a 68 year old male with a past medical history of hypertension, hyperlipidemia, SD, CAD, two-vessel bypass and stents, recent GI bleed, and chronic anemia who presented to the emergency department complaining of increased fatigue and shortness of breath that has been present since his time of discharge. Patient was discharged on 04/26/2019 after admission for upper GI bleed requiring 3 units PRBC and 1 unit platelets. Patient presented to the surgical clinic for his routine follow-up today and upon reporting shortness of breath, was directed to the ED. Evaluation in the emergency department revealed mild hypertension, otherwise normal vital signs, maintains oxygen saturations of 96 while ambulatory on room air, baseline anemia with a hemoglobin of 8.5, slightly elevated d-dimer, elevated proBNP to 1190 but otherwise unremarkable chemistry, negative urinalysis, negative occult stool, EKG showing sinus rhythm, venous Dopplers negative DVT/SVT. Chest x-ray revealed mild cardiomegaly with chronic left pleural effusion and associated atelectasis or pneumonia. Follow-up chest CTA was negative for pulmonary embolus; demonstrated mild CHF and cirrhosis of the liver. After discussion with the patient his current symptoms and possible causes, recommendations for further outpatient follow up, and red flags for return to ED, the patient feels comfortable to discharge to home with close follow-up with cardiology. Past Medical History Cardiac Medical History: Reports: Coronary Artery Disease, Myocardial Infarction, Hypertension Pulmonary Medical History: Reports: None EENT Medical History: Reports: None Neurological Medical History: Reports: None Endocrine Medical History: Reports: Diabetes Mellitus Type 2, Obesity Renal/ Medical History: Reports: None Malignancy Medical History: Reports: None GI Medical History: Reports: Gastroesophageal Reflux Disease, Peptic Ulcer Dise ase Musculoskeltal Medical History: Reports: Arthritis - right knee Skin Medical History: Reports: None Psychiatric Medical History: Reports: None Traumatic Medical History: Reports: None Hematology: Reports: Anemia Infectious Medical History: Reports: None Past Surgical History Past Surgical History: Reports: Cardiac Catheterization - stent, Coronary Stent Social History Information Source: Patient Lives with: Spouse/Significant other Smoking Status: Never Smoker Frequency of Alcohol Use: Social Hx Recreational Drug Use: No Drugs: None Hx Prescription Drug Abuse: No - Advance Directive Resuscitation Status: Full Code Family History Family History: Reviewed & Not Pertinent Parental Family History Reviewed: Yes Children Family History Reviewed: Yes Sibling(s) Family History Reviewed.: Yes Medication/Allergy Home Medications: Clopidogrel Bisulfate [Plavix] 75 mg PO DAILY 04/23/19 Diphenhydramine HCl [Allergy Medication] 1 tab PO Q8HP PRN 04/23/19 Metformin HCl [Metformin HCl ER] 1,000 mg PO BID 04/23/19 Metoprolol Succinate 100 mg PO DAILY 04/23/19 Simvastatin 40 mg PO DAILY 04/23/19 Pantoprazole Sodium [Protonix [address] Tablet] 40 mg PO QAMPM #60 tablet.dr 04/26/19 Sucralfate [Carafate 1 gm Tablet] 1 gm PO Q6 #120 tablet 04/26/19 Allergies/Adverse Reactions: oxycodone [From Percocet] Allergy (Verified 04/23/19 03:52) Review of Systems Constitutional: PRESENT: fatigue. ABSENT: chills, fever(s), headache(s), weight gain, weight loss Eyes: ABSENT: visual disturbances Ears: ABSENT: hearing changes Cardiovascular: PRESENT: dyspnea on exertion. ABSENT: chest pain, edema, orthropnea, palpitations Respiratory: ABSENT: cough, hemoptysis Gastrointestinal: ABSENT: abdominal pain, constipation, diarrhea, hematemesis, hematochezia, nausea, vomiting Genitourinary: ABSENT: dysuria, hematuria Musculoskeletal: ABSENT: joint swelling Integumentary: ABSENT: rash, wounds Neurological: ABSENT: abnormal gait, abnormal speech, confusion, dizziness, focal weakness, syncope Psychiatric: ABSENT: anxiety, depression, homidical ideation, suicidal ideation Endocrine: ABSENT: cold intolerance, heat intolerance, polydipsia, polyuria Hematologic/Lymphatic: ABSENT: easy bleeding, easy bruising Physical Exam Vital Signs: Temp Pulse Resp BP Pulse Ox 99.0 F 64 16 117/58 L 99 05/10/19 09:45 05/10/19 09:45 05/10/19 15:06 05/10/19 15:06 05/10/19 15:06 Intake & Output 05/09/19 05/10/19 05/11/19 06:59 06:59 06:59 Weight 96.162 kg General appearance: PRESENT: no acute distress, cooperative, well-developed, well-nourished - overweight Head exam: PRESENT: atraumatic, normocephalic Eye exam: PRESENT: conjunctiva pink, EOMI, PERRLA. ABSENT: scleral icterus Mouth exam: PRESENT: moist, tongue midline Neck exam: ABSENT: carotid bruit, JVD, lymphadenopathy, thyromegaly Respiratory exam: PRESENT: clear to auscultation juani, symmetrical, unlabored. ABSENT: rales, rhonchi, wheezes Cardiovascular exam: PRESENT: RRR, +S1, +S2. ABSENT: diastolic murmur, rubs, systolic murmur Pulses: PRESENT: normal dorsalis pedis pul Vascular exam: PRESENT: normal capillary refill GI/Abdominal exam: PRESENT: normal bowel sounds, soft. ABSENT: distended, guarding, mass, organolmegaly, rebound, tenderness Rectal exam: PRESENT: deferred Extremities exam: PRESENT: full ROM. ABSENT: calf tenderness, clubbing, pedal edema Musculoskeletal exam: PRESENT: ambulatory - on room air Neurological exam: PRESENT: alert, awake, oriented to person, oriented to place, oriented to time, oriented to situation, CN II-XII grossly intact. ABSENT: motor sensory deficit Psychiatric exam: PRESENT: appropriate affect, normal mood. ABSENT: homicidal ideation, suicidal ideation Skin exam: PRESENT: dry, intact, warm. ABSENT: cyanosis, rash Results Laboratory Results: 05/10/19 10:37 05/10/19 10:37 05/10/19 05/10/19 05/10/19 09:37 09:37 10:37 WBC Cancelled RBC Cancelled Hgb Cancelled Hct Cancelled MCV Cancelled MCH Cancelled MCHC Cancelled RDW Cancelled Plt Count Cancelled Seg Neutrophils % Cancelled Sodium Cancelled 138.7 Potassium Cancelled 3.8 Chloride Cancelled 106 Carbon Dioxide Cancelled 23 Anion Gap Cancelled 10 BUN Cancelled 15 Creatinine Cancelled 0.75 Est GFR ( Amer) Cancelled > 60 Est GFR (Non-Af Amer) Cancelled Glucose Cancelled 150 H Calcium Cancelled 8.5 Total Bilirubin Cancelled 0.6 AST Cancelled 22 Alkaline Phosphatase Cancelled 57 Total Protein Cancelled 6.1 L Albumin Cancelled 3.3 L Urine Color Urine Appearance Urine pH Ur Specific [place] Urine Protein Urine Glucose (UA) Urine Ketones Urine Blood Urine Nitrite Ur Leukocyte Esterase Urine WBC (Auto) 05/10/19 05/10/19 10:37 13:56 WBC 8.0 RBC 3.11 L Hgb 8.5 L Hct 26.2 L MCV 84 D MCH 27.2 MCHC 32.3 RDW 18.0 H Plt Count 303 Seg Neutrophils % 72.5 Sodium Potassium Chloride Carbon Dioxide Anion Gap BUN Creatinine Est GFR ( Amer) Est GFR (Non-Af Amer) Glucose Calcium Total Bilirubin AST Alkaline Phosphatase Total Protein Albumin Urine Color YELLOW Urine Appearance CLEAR Urine pH 5.0 Ur Specific [place] 1.019 Urine Protein NEGATIVE Urine Glucose (UA) NEGATIVE Urine Ketones NEGATIVE Urine Blood NEGATIVE Urine Nitrite NEGATIVE Ur Leukocyte Esterase NEGATIVE Urine WBC (Auto) 0 05/10/19 05/10/19 05/10/19 09:37 09:37 10:37 Creatine Kinase Cancelled < 20 L Troponin I Cancelled NT-Pro-B Natriuret Pep 05/10/19 05/10/19 10:37 10:37 Creatine Kinase Troponin I < 0.012 NT-Pro-B Natriuret Pep 1190 H Impressions: Chest X-Ray 05/10/19 00:00 IMPRESSION: Chronic left pleural effusion and associated atelectasis or pneumonia. Chest/Abdomen CTA 05/10/19 13:09 IMPRESSION: 1. No PE. 2. Mild CHF. 3. Cirrhosis. Venous Doppler Study 05/10/19 13:11 IMPRESSION: NO EVIDENCE DVT OR SVT IN EITHER LEG. Assessment and Plan - Diagnosis (1) CHF (congestive heart failure) Qualifiers: Heart failure type: diastolic Heart failure chronicity: acute on chronic Qualified Code(s): I50.33 - Acute on chronic diastolic (congestive) heart failure Is this a current diagnosis for this admission?: Yes Plan: Likely mild acute on chronic CHF exacerbation (r/t recent IVF and transfusions during prior admission) and underlying mild CHF. CXR showed chronic left pleural effusion with associated atelectasis. CTA of the chest demonstrated Mild CHF. EKG shows NSR without concerning changes. proBNP elevated to 1190 Symptoms have resolved following IV furosemide 40 mg. Patient is now ambulatory on room air without increased work of breathing; SpO2 remained >96% Have discussed patient with Dr. Garcia. Patient was provided Dr. Garcia's phone number and advised to call tomorrow to arrange for follow up appointment. Eat a low sodium diet. Reduce fluid intake. Patient is discharged home in stable condition. (2) Dyspnea on effort Is this a current diagnosis for this admission?: Yes Plan: Secondary to #1 Resolved after receiving IV furosemide in the emergency department. (3) HTN (hypertension) Is this a current diagnosis for this admission?: Yes Plan: Continue home medications. Cardiac diet. (4) CAD (coronary artery disease) Is this a current diagnosis for this admission?: Yes Plan: Continue home medication regimen. (5) Diabetes mellitus Qualifiers: Diabetes mellitus type: type 2 Is this a current diagnosis for this admission?: Yes Plan: Continue home medication regimen Dietary compliance. - Plan Summary Summary: Pt is discharged home in stable condition. To follow up with Dr. Garcia tomorrow for further evaluation. - Time Time Spent with patient: 35 or more minutes Medications reviewed and adjusted accordingly: Yes Anticipated discharge: Home
[2019-05-10 17:02] VITALS: BP 106/62
--- NOTE | 2019-05-11 09:56 | ER Document Report ---
Entered by CULLEN CUBA SCRIBE 05/10/19 1043 Acting as scribe for:GORGE DORAN MD ED General - General Chief Complaint: Shortness Of Breath Stated Complaint: SHORTNESS OF BREATH Primary Care Provider: MARIANGEL VINES MD [ACTIVE STAFF] - (Please call Dr. Garcia tomorrow and follow up as directed.) Information source: Patient Notes: This 68-year-old male with hypertension and diabetes presents to the emergency department complaining of shortness of breath. Patient states that his shortness of breath is worse when he is active. Patient initially thought that this was anemia. Patient fell and was hospitalized 2 weeks ago for 3 days. Patient was diagnosed with a bleeding ulcer during that visit. Patient states that he still has residual pain from fall. Patient denies black tarry stool and abdominal pain at this time. TRAVEL OUTSIDE OF THE [place] IN LAST 30 DAYS: No - Related Data Allergies/Adverse Reactions: oxycodone [From Percocet] Allergy (Verified 04/23/19 03:52) Past Medical History - General Information source: Patient - Social History Smoking Status: Former Smoker Cigarette use (# per day): No Chew tobacco use (# tins/day): No Family History: Reviewed & Not Pertinent Patient has suicidal ideation: No Patient has homicidal ideation: No - Past Medical History Cardiac Medical History: Reports: Hx Coronary Artery Disease, Hx Heart Attack, Hx Hypercholesterolemia, Hx Hypertension Endocrine Medical History: Reports: Hx Diabetes Mellitus Type 2 GI Medical History: Reports: Hx Gastroesophageal Reflux Disease, Hx Ulcer - Taken to endoscopy now with plan great thanks are Musculoskeletal Medical History: Reports Hx Arthritis - right knee Past Surgical History: Reports: Hx Coronary Artery Bypass Graft, Hx Coronary Stent Review of Systems - Review of Systems Constitutional: No symptoms reported EENT: No symptoms reported Cardiovascular: No symptoms reported Respiratory: See HPI, Short of breath Gastrointestinal: See HPI. denies: Abdominal pain, Black stools Genitourinary: No symptoms reported Male Genitourinary: No symptoms reported Musculoskeletal: See HPI, Back pain Skin: No symptoms reported Hematologic/Lymphatic: No symptoms reported Neurological/Psychological: No symptoms reported -: Yes All other systems reviewed and negative Physical Exam - Vital signs Vitals: Resp Pulse Ox 22 H 96 05/10/19 09:24 05/10/19 09:24 - Notes Notes: Physical Exam: General: Alert, appears well. HEENT: Normocephalic. Atraumatic. PERRL. Extraocular movements intact. Oropharynx clear. Neck: Supple. Non-tender. Respiratory: No respiratory distress. Clear and equal breath sounds bilaterally. Cardiovascular: Regular rate and rhythm. Abdominal: Normal Inspection. Non-tender. No distension. Normal Bowel Sounds. Back: No gross abnormalities. Extremities: Moves all four extremities. Upper extremities: Normal inspection. Normal ROM. Nail beds are baseline and has appropriate capillary refill. Lower extremities: Normal inspection. No edema. Normal ROM. Neurological: Normal cognition. AAOx4. Normal speech. Psychological: Normal affect. Normal Mood. Skin: Warm. Dry. Normal color. - Rectal Stool: Heme negative Course - Re-evaluation Re-evalutation: 05/10/19 14:25 Patient is resting comfortable not showing any signs of distress at this time sats are 96% on room air. Normal sinus rhythm on the monitor. 05/10/19 14:35 On review of chart patient had a BNP done on 04/23/2019 and the BNP was 131. Today the BNP is over 1000 and this is most likely congestive heart failure related. This is new onset congestive heart failure in a patient with known coronary artery disease status post 3 bypass CABG in 2003, and a stent placement in 2005. 05/10/19 14:52 Doppler ultrasound of both lower extremities shows no evidence of DVT. Patient is on his way [place] to get a CT scan angiogram of his chest to rule out pulmo nary embolus. Patient also reported to me that he has a chronic scarring in his left base due to a fall in the past where he had a blood bleed and in the left base that coagulated together never resolved. 05/10/19 14:55 Case discussed with Khadijah with the hospitalist service who will evaluate teodora carrion when she returns from the CTA with that report of the CT angiogram of chest. She will make a disposition determination of patient inpatient versus outpatient management. - Vital Signs Vital signs: Temp Pulse Resp BP Pulse Ox 98.2 F 63 16 106/62 99 05/10/19 17:00 05/10/19 17:00 05/10/19 17:00 05/10/19 17:00 05/10/19 17:00 05/10/19 14:25 Patient's laboratories show hemoglobin of 8.5. This is slightly lower than his hemoglobin to 9.3 on discharge about 10 days ago. Patient reports she is not seeing any blood per rectum or any coffee ground emesis. Denies any abdominal pain except for pain from where he fell 2 weeks ago. - Laboratory Result Diagrams: 05/10/19 10:37 05/10/19 10:37 Laboratory results interpreted by me: 05/10/19 05/10/19 05/10/19 10:37 10:37 10:37 RBC 3.11 L Hgb 8.5 L Hct 26.2 L RDW 18.0 H D-Dimer 0.63 H Glucose 150 H Creatine Kinase < 20 L NT-Pro-B Natriuret Pep Total Protein 6.1 L Albumin 3.3 L Urine Ascorbic Acid 05/10/19 05/10/19 10:37 13:56 RBC Hgb Hct RDW D-Dimer Glucose Creatine Kinase NT-Pro-B Natriuret Pep 1190 H Total Protein Albumin Urine Ascorbic Acid 20 H - Diagnostic Test Radiology reviewed: Image reviewed, Reports reviewed Radiology results interpreted by me: 05/10/19 14:23 Twelve-lead EKG done at 1003 shows normal sinus rhythm rate of 65 left atrial abnormality, old inferior AR. Probable posterior AR all. 05/10/19 14:23 Chest x-ray shows cardiomegaly vascular congestive markings and a chronic left pleural effusion and atelectasis versus infiltrate in the left base. Patient has a normal white blood cell count and no report of any fever. Patient's only complaint has been shortness of breath with minimal exertion. Currently I do not think patient has an pneumonic process in his left base. However patient is having a CTA of his chest to rule out pulmonary embolus which should further define the atelectasis versus the infiltrate in the left base. Patient has a elevated d-dimer and a normal white blood cell count. Currently still pending is Doppler studies of both lower extremities and a CTA of chest follows that. - Transfer of Care Care transferred to following provider: Care is being transferred to Dr. Rudi Padgett, disposition pending result Discharge - Discharge Clinical Impression: Shortness of breath, D-dimer, elevated, Recurrent pleural effusion on left, Coronary artery disease, Type 2 diabetes mellitus, Anemia, CHF (congestive heart failure) Condition: Stable Disposition: HOME, SELF-CARE Additional Instructions: Establish with a local primary care provider as soon as possible. Call Dr. Garcia, optical advisor, tomorrow to schedule your follow up appointment. Eat a low sodium diet. Try to limit fluids to 2 L (approximately 8 drinking glasses) daily. Start weighing yourself each morning; report any weight gain of more than 2 lbs overnight to your optical advisor. Return to the emergency as needed for concerning symptoms. Referrals: MARIANGEL VINES MD [ACTIVE STAFF] - (Please call Dr. Garcia tomorrow and follow up as directed.) I personally performed the services described in the documentation, reviewed and edited the documentation which was dictated to the scribe in my presence, and it accurately records my words and actions.
== END 2019-05-10 17:35 | disposition home or self-care (01) ==
LOC: ER 09:18
DX: R06.02 Shortness of breath (principal); D64.9 Anemia, unspecified; J90 Pleural effusion, not elsewhere classified; R79.89 Other specified abnormal findings of blood chemistry; I50.9 Heart failure, unspecified; I11.0 Hypertensive heart disease with heart failure; I25.10 Atherosclerotic heart disease of native coronary artery without angina pectoris; E11.9 Type 2 diabetes mellitus without complications; E78.00 Pure hypercholesterolemia, unspecified; K21.9 Gastro-esophageal reflux disease without esophagitis; Z88.6 Allergy status to analgesic agent; Z95.1 Presence of aortocoronary bypass graft; I25.2 Old myocardial infarction
CPT/HCPCS: 93005; 99285; 96374; 36415; 82550; 85025; 82270; 80053; 81001; 84484; 85379; 83880; 93970; 71045; 71275; 93010; A9270; J1940

== ENCOUNTER 2019-05-25 14:30 | Inpatient (IN) | payer MEDICARE, OTHER ==
--- NOTE | 2019-05-25 15:02 | RADIOLOGY REPORT (SQ) ---
EXAM DESCRIPTION: CHEST SINGLE VIEW IMAGES COMPLETED DATE/TIME: 05/25/2019 2:46 pm REASON FOR STUDY: sob COMPARISON: 05/10/2019 EXAM PARAMETERS: NUMBER OF VIEWS: One view. TECHNIQUE: Single frontal radiographic view of the chest acquired. RADIATION DOSE: NA LIMITATIONS: None. FINDINGS: LUNGS AND PLEURA: Chronic left basilar pleural and parenchymal changes. Lung tim are o therwise clear. MEDIASTINUM AND HILAR STRUCTURES: No masses. Contour normal. HEART AND VASCULAR STRUCTURES: Stable in appearance. BONES: No acute findings. HARDWARE: Sternotomy wires are in place. OTHER: No other significant finding. IMPRESSION: No interval change in the chest with chronic pleural and parenchymal changes in the left base. TECHNICAL DOCUMENTATION: JOB ID: [id number] 2010 [employer]- All Rights Reserved Reading location - IP/workstation name: [email or web address]
--- NOTE | 2019-05-25 15:08 | ER Document Report ---
Entered by CULLEN CUBA SCRIBE 05/25/19 1453 Acting as scribe for:AMINTA SMALLS DO ED General - General Chief Complaint: Shortness Of Breath Stated Complaint: SHORTNESS OF BREATH Time Seen by Provider: 05/25/19 14:43 Primary Care Provider: MARIANGEL VINES MD [Primary Care Provider] - Follow up as needed Information source: Patient Notes: This 68-year-old male with HTN, HLD, CAD and type 2 DM presents to the emergency department with a chief complaint of shortness of breath. Patient was sent by physician's office for shortness of breath. Patient states that he is unable to "walk ten steps without getting short of breath". Patient was recently seen in the ED for SOB and today was his follow-up appointment for his ED visit at the physician's office. Patient denies chest pain, black tarry stool, fever, cough and rectal bleeding. Patient denies travel in the last 14 days. Patient does not have a locally established PCP due to moving from [place], [place]. TRAVEL OUTSIDE OF THE [place] IN LAST 30 DAYS: No - Related Data Allergies/Adverse Reactions: oxycodone [From Percocet] Allergy (Verified 04/23/19 03:52) Past Medical History - General Information source: Patient - Social History Smoking Status: Former Smoker Cigarette use (# per day): No Chew tobacco use (# tins/day): No Lives with: Spouse/Significant other Family History: Reviewed & Not Pertinent Patient has suicidal ideation: No Patient has homicidal ideation: No - Past Medical History Cardiac Medical History: Reports: Hx Coronary Artery Disease, Hx Heart Attack, Hx Hypercholesterolemia, Hx Hypertension Endocrine Medical History: Reports: Hx Diabetes Mellitus Type 2 GI Medical History: Reports: Hx Gastroesophageal Reflux Disease, Hx Ulcer Musculoskeletal Medical History: Reports Hx Arthritis - right knee Past Surgical History: Reports: Hx Coronary Artery Bypass Graft - Distant three vessel, Hx Coronary Stent Review of Systems - Review of Systems Constitutional: See HPI. denies: Fever EENT: No symptoms reported Cardiovascular: See HPI. denies: Chest pain Respiratory: See HPI, Short of breath. denies: Cough Gastrointestinal: See HPI. denies: Black stools, Rectal bleeding Genitourinary: No symptoms reported Male Genitourinary: No symptoms reported Musculoskeletal: No symptoms reported Skin: No symptoms reported Hematologic/Lymphatic: No symptoms reported Neurological/Psychological: No symptoms reported -: Yes All other systems reviewed and negative Physical Exam - Vital signs Vitals: Temp Pulse Ox 97.8 F 97 05/25/19 15:00 05/25/19 15:00 - Notes Notes: Physical Exam: General: Alert, appears well. HEENT: Normocephalic. Atraumatic. PERRL. Extraocular movements intact. Oropharynx clear. Neck: Supple. Non-tender. Respiratory: No respiratory distress. Clear and equal breath sounds bilaterally. Cardiovascular: Regular rate and rhythm. Abdominal: Obese. Non-tender. No distension. Normal Bowel Sounds. Back: No gross abnormalities. Extremities: Moves all four extremities. Upper extremities: Normal inspection. Normal ROM. Lower extremities: Normal inspection. No edema. Normal ROM. Neurological: Normal cognition. AAOx4. Normal speech. Psychological: Normal affect. Normal Mood. Skin: Warm. Dry. Normal color. Course - Re-evaluation Re-evalutation: 05/25/19 17:46 [facility] I have discussed with Dr. Garcia, Dr. Montalvo and Dr. Bird and Dr. Bird will see and evaluate for admission. - Vital Signs Vital signs: Temp Pulse Resp BP Pulse Ox 97.9 F 21 H 111/55 L 96 05/25/19 17:14 05/25/19 17:01 05/25/19 17:00 05/25/19 17:01 - Laboratory Result Diagrams: 05/25/19 14:55 05/25/19 14:55 Laboratory results interpreted by me: 05/25/19 05/25/19 05/25/19 14:55 14:55 14:55 RBC 3.71 L Hgb 9.3 L Hct 29.3 L MCV 79 L MCH 25.0 L MCHC 31.7 L RDW 21.1 H D-Dimer Chloride 110 H Glucose 126 H Magnesium 1.4 L Ferritin NT-Pro-B Natriuret Pep 05/25/19 05/25/19 05/25/19 14:55 14:55 14:55 RBC Hgb Hct MCV MCH MCHC RDW D-Dimer 0.60 H Chloride Glucose Magnesium Ferritin 10.50 L NT-Pro-B Natriuret Pep 1600 H - Diagnostic Test Radiology reviewed: Image reviewed, Reports reviewed - EKG Interpretation by Me EKG shows normal: Sinus rhythm - NSR [address] elevation or depression my in terpretation. Rate: Normal Rhythm: NSR Critical Care Note - Critical Care Note Total time excluding time spent on procedures (mins): 30 Comments: Reviewing studies, replacing Mg, comparing old records and discussing the pt with Dr. Garcia and Dr. Montalvo and Dr. Bird. Discharge - Discharge Clinical Impression: Hypomagnesemia Dyspnea Qualifiers: Dyspnea type: unspecified Qualified Code(s): R06.00 - Dyspnea, unspecified Condition: Fair Disposition: ADMITTED OBSERVATION Admitting Provider: Marge (Hospitalist) Unit Admitted: Telemetry Referrals: MARIANGEL VINES MD [Primary Care Provider] - Follow up as needed I personally performed the services described in the documentation, reviewed and edited the documentation which was dictated to the scribe in my presence, and it accurately records my words and actions.
[2019-05-25 15:18] LABS: ABSOLUTE BASOPHILS # (AUTO) 0.1 10^3/uL (0.0-0.2); ABSOLUTE EOSINOPHILS # (AUTO) 0.2 10^3/uL (0.0-0.6); ABSOLUTE LYMPHOCYTES (AUTO) 1.2 10^3/uL (0.5-4.7); ABSOLUTE MONOCYTES (AUTO) 0.6 10^3/uL (0.1-1.4); ABSOLUTE NEUT (AUTO) 5.8 10^3/uL (1.7-8.2); EOSINOPHILS % (AUTO) 3.1 % (0-6); HEMATOCRIT 29.3 % (37.9-51.0); HEMOGLOBIN 9.3 g/dL (13.5-17.0); LYMPHOCYTES % (AUTO) 14.9 % (13-45); MEAN CORPUSCULAR HGB CONC 31.7 g/dL (32.0-36.0); MEAN CORPUSCULAR VOLUME 79 fl (80-97); MONOCYTES % (AUTO) 7.9 % (3-13); PLATELET COUNT 329 10^3/uL (150-450); RED BLOOD COUNT 3.71 10^6/uL (4.35-5.55); RED CELL DISTRIBUTION WIDTH 21.1 % (11.5-14.0); SEGMENTED NEUTROPHILS % (AUTO) 73.1 % (42-78); TOTAL CELLS COUNTED % (AUTO) 100 %; WHITE BLOOD COUNT 7.9 10^3/uL (4.0-10.5)
[2019-05-25 15:31] LABS: ALBUMIN 4.2 g/dL (3.5-5.0); ALKALINE PHOSPHATASE 47 U/L (38-126); ANION GAP 8 (5-19); ASPARTATE AMINO TRANSFERASE 34 U/L (17-59); BILIRUBIN,DIRECT 0.1 mg/dL (0.0-0.4); BILIRUBIN,TOTAL 0.9 mg/dL (0.2-1.3); BLOOD UREA NITROGEN 15 mg/dL (7-20); CALCIUM 9.1 mg/dL (8.4-10.2); CARBON DIOXIDE 23 mmol/L (22-30); CHLORIDE 110 mmol/L (98-107); GLUCOSE 126 mg/dL (75-110); POTASSIUM 4.3 mmol/L (3.6-5.0); TOTAL PROTEIN 7.4 g/dL (6.3-8.2)
[2019-05-25 15:56] LABS: NT PRO BNP 1600 pg/mL (<125); TROPONIN I < 0.012 ng/mL
[2019-05-25 17:02] LABS: C-REACTIVE PROTEIN < 5.0 mg/L (<10.0)
[2019-05-25] MEDS ORDERED: MAGNESIUM SULFATE/D5W 1 GM/100 ML RTUPB IV ONE (17:29)
--- NOTE | 2019-05-25 17:33 | EKG REPORT ---
SEVERITY:- BORDERLINE ECG - SINUS RHYTHM PROBABLE LEFT ATRIAL ABNORMALITY BORDERLINE LEFT AXIS DEVIATION EARLY PRECORDIAL TRANSITION, CONSIDER OLD TRUE POST ME, AND OTHER DIFFERENTIALS : Confirmed by: Brendon Akers MD 25-May-2019 17:33:14
[2019-05-25 17:45] LABS: ARTERIAL BLOOD BASE EXCESS -3.6 mmol/L; ARTERIAL BLOOD FIO2 ROOM AIR; ARTERIAL BLOOD H2CO3 0.87 mmol/L (1.05-1.35); ARTERIAL BLOOD HCO3 19.7 mmol/L (20-24); ARTERIAL BLOOD O2 SATURATION 93.3 % (94-98); ARTERIAL BLOOD PCO2 28.9 mmHg (35-45); ARTERIAL BLOOD PH 7.45 (7.35-7.45); ARTERIAL BLOOD PO2 62.3 mmHg (80-100); ARTERIAL BLOOD TOTAL CO2 20.6 mmol/L (23-27)
--- NOTE | 2019-05-25 18:08 | Progress Note ---
Provider Note Provider Note: I was asked to screen and evaluated patient for potential admission to the ICU for pulmonary artery catheter insertion. Has pulmonary hypertension on echo and the concern was that it was worsening and may need inotropic and pulmonary vascular afterload reduction. He states that he has had a cough which is been dry for the last week and which started May 09. Is not endorse any fever but he has had some mild abdominal discomfort with frequent bowel movements. He has felt chilled at times but no zeb rigors. CT scan May 09 showed groundglass appearance that was suggestive of heart failure His chest x-ray shows mild interstitial changes. Some mild peripheral edema in his lower extremities. He is noticeably dyspneic with activity. In concern for SARS, 2-CoViD19 we evaluated the patient. On room air his oxygenation is 96%. He is breathing at a comfortable rate of 14-16. Going from supine to upright position does not cause tachycardia nor hypoxia. Smiling and pleasant. Due to the confines of the stethoscope in relation to PPE apparel unable to auscultate lung sounds or heart sounds. Neck is nondistended nontender. Positive pulses in his lower extremities there is no mottling. From inflammatory marker standpoint his ferritin is low at 10 and his C-reactive protein is not detectable. His neutrophil to electrolyte ratio 4.83 in the face of normal white count and hemoglobin hematocrit of 29 and 9. I reviewed his CT scan from May 09 and there is some mild groundglass appearance. Full intents and purposes low probability for SARS, 2-CoViD19 never given the pandemic situation it would be in the patient's best interest to have testing. He is not a candidate to come to an ICU for evaluation for pulmonary hypertension for a number of reasons. First is that given the amount of in patients with SARS, 2-CoViD19 we would be concerned about acquisition while in the hospital. Secondly, if he does have pulmonary hypertension placing him on milrinone or dobutamine without an end game would be a risk. Accommodation would be to screen for viral pneumonitis, have patient seen and evaluated by a pulmonary hypertension clinic. I would also screen and evaluate for vasculitis and other related syndromes associated with pulmonary hypertension. We can be of further assistance please contact critical care service line
[2019-05-25 18:50] LABS: A TYPE INFLUENZA AG NEGATIVE (NEGATIVE); B INFLUENZA AG NEGATIVE (NEGATIVE)
[2019-05-25] MEDS ORDERED: ACETAMINOPHEN 325 MG TABLET PO PRN (18:57)
[2019-05-25 19:06] LABS: APPEARANCE,URINE CLEAR; BILIRUBIN,URINE NEGATIVE (NEGATIVE); COLOR,URINE YELLOW; GLUCOSE, URINE NEGATIVE (NEGATIVE); KETONES,URINE NEGATIVE (NEGATIVE); LEUKOCYTE ESTERASE,URINE NEGATIVE (NEGATIVE); NITRITE,URINE NEGATIVE (NEGATIVE); PROTEIN,URINE NEGATIVE (NEGATIVE); URINE SPECIFIC GRAVITY 1.024; UROBILINOGEN,URINE NEGATIVE mg/dL (<2.0)
[2019-05-25] MEDS ORDERED: DIPHENHYDRAMINE HCL 25 MG CAPSULE PO PRN (19:13)
[2019-05-25] MEDS ORDERED: DEXTROSE 50%-WATER 25 GM/50 ML DISP.SYRIN IV PRN ×2 (19:14)
[2019-05-25] MEDS ORDERED: GLUCAGON,HUMAN RECOMB 1 MG INJ IM PRN (19:14)
[2019-05-25] MEDS ORDERED: DEXTROSE 40% GEL 15 GM TUBE PO PRN ×2 (19:14)
[2019-05-25] MEDS ORDERED: FUROSEMIDE INJ/PF 20 MG/2 ML SDV IV ONE (19:15)
--- NOTE | 2019-05-25 19:17 | PDOC H&P ---
History of Present Illness Admission Date/PCP: 05/25/19 17:59 MARIANGEL VINES MD Patient complains of: Progressive dyspnea on exertion History of Present Illness: KATI SOLIS is a 68 year old male with a history of coronary artery disease CABG and PCI with stents, diabetes mellitus type 2, recent GI bleed, who presents to the hospital for evaluation of progressive dyspnea on referral by Dr. Garcia. Patient recently moved to the area from [place] in March 2019. Last month, patient had an episode of syncope and was evaluated for GI bleed during which cauterization was performed via EGD. Subsequently discharged but has been having progressive dyspnea on exertion. Dyspnea at rest seems to be mild but on exertion and ambulation patient is barely able to tolerate walking between rooms in his house now. Denies any orthopnea. Does endorse some PND. Has a history of smoking. Denies fever or chills. Endorses some cough but nonproductive. Patient was referred to Dr. Garcia and echocardiogram was performed over the weekend which reveals severe pulmonary hypertension with unremarkable LV. As such patient was referred to the hospital for evaluation via right heart catheterization and treatment. Sales Apprentice recommended initial screening for covid [address] Garcia is recommending patient be hospitalized for evaluation and treatment and possible dobutamine drip if needed. Past Medical History Cardiac Medical History: Reports: Coronary Artery Disease, Myocardial Infarction, Hyperlipidema, Hypertension Neurological Medical History: Denies: Seizures Endocrine Medical History: Reports: Diabetes Mellitus Type 2 GI Medical History: Reports: Gastroesophageal Reflux Disease Musculoskeltal Medical History: Reports: Arthritis - right knee Hematology: Reports: Anemia Past Surgical History Past Surgical History: Reports: Cardiac Catheterization - stent, Coronary Artery Bypass Graft - Distant three vessel, Coronary Stent Social History Lives with: Spouse/Significant other Smoking Status: Former Smoker Frequency of Alcohol Use: Social Hx Recreational Drug Use: No Drugs: None Hx Prescription Drug Abuse: No - Advance Directive Resuscitation Status: Full Code Family History Family History: CAD Parental Family History Reviewed: Yes Children Family History Reviewed: NA Sibling(s) Family History Reviewed.: NA Medication/Allergy Home Medications: Clopidogrel Bisulfate [Plavix] 75 mg PO DAILY 04/23/19 Diphenhydramine HCl [Allergy Medication] 1 tab PO Q8HP PRN 04/23/19 Metformin HCl [Metformin HCl ER] 1,000 mg PO BID 04/23/19 Metoprolol Succinate 100 mg PO DAILY 04/23/19 Simvastatin 40 mg PO DAILY 04/23/19 Pantoprazole Sodium [Protonix [address] Tablet] 40 mg PO QAMPM #60 tablet.dr 04/26/19 Sucralfate [Carafate 1 gm Tablet] 1 gm PO Q6 #120 tablet 04/26/19 Allergies/Adverse Reactions: oxycodone [From Percocet] Allergy (Verified 04/23/19 03:52) Review of Systems Constitutional: ABSENT: chills, fatigue, fever(s) Eyes: ABSENT: visual disturbances Nose, Mouth, and Throat: ABSENT: headache(s) Cardiovascular: PRESENT: dyspnea on exertion. ABSENT: chest pain Respiratory: PRESENT: dyspnea Gastrointestinal: ABSENT: abdominal pain Musculoskeletal: ABSENT: back pain Integumentary: ABSENT: diaphoresis Neurological: ABSENT: confusion, dizziness Psychiatric: ABSENT: depression Endocrine: ABSENT: cold intolerance, heat intolerance Allergic/Immunologic: PRESENT: other - Denies rhinorrhea Physical Exam Vital Signs: Temp Pulse Resp BP Pulse Ox 97.9 F 27 H 126/69 H 94 05/25/19 17:14 05/25/19 18:01 05/25/19 18:00 05/25/19 18:01 Intake & Output 05/24/19 05/25/19 05/26/19 06:59 06:59 06:59 Intake Total 100 Balance 100 Weight 97.1 kg General appearance: PRESENT: no acute distress, cooperative Neck exam: ABSENT: JVD - Obscured by body habitus and neck size Respiratory exam: PRESENT: clear to auscultation juani, unlabored. ABSENT: tachypnea, wheezes Cardiovascular exam: PRESENT: RRR, +S1, +S2. ABSENT: tachycardia GI/Abdominal exam: PRESENT: soft. ABSENT: rebound, rigid, tenderness Extremities exam: PRESENT: pedal edema - Trace edema Neurological exam: PRESENT: alert, awake, oriented to person, oriented to place, oriented to time, oriented to situation Focused psych exam: ABSENT: pressured speech Skin exam: ABSENT: jaundice Results Laboratory Results: 05/25/19 14:55 05/25/19 14:55 05/25/19 05/25/19 05/25/19 14:55 14:55 14:55 WBC 7.9 RBC 3.71 L Hgb 9.3 L Hct 29.3 L MCV 79 L MCH 25.0 L MCHC 31.7 L RDW 21.1 H Plt Count 329 Seg Neutrophils % 73.1 Carbonic Acid HCO3/H2CO3 Ratio ABG pH ABG pCO2 ABG pO2 ABG HCO3 ABG O2 Saturation ABG Base Excess FiO2 Sodium 141.2 Potassium 4.3 Chloride 110 H Carbon Dioxide 23 Anion Gap 8 BUN 15 Creatinine 0.78 Est GFR ( Amer) > 60 Glucose 126 H Calcium 9.1 Magnesium 1.4 L Ferritin Total Bilirubin 0.9 AST 34 Alkaline Phosphatase 47 C-Reactive Protein Total Protein 7.4 Albumin 4.2 TSH 05/25/19 05/25/19 05/25/19 14:55 14:55 17:09 WBC RBC Hgb Hct MCV MCH MCHC RDW Plt Count Seg Neutrophils % Carbonic Acid 0.87 L HCO3/H2CO3 Ratio 22:1 ABG pH 7.45 ABG pCO2 28.9 L ABG pO2 62.3 L ABG HCO3 19.7 L ABG O2 Saturation 93.3 L ABG Base Excess -3.6 FiO2 ROOM AIR Sodium Potassium Chloride Carbon Dioxide Anion Gap BUN Creatinine Est GFR ( Amer) Glucose Calcium Magnesium Ferritin 10.50 L Total Bilirubin AST Alkaline Phosphatase C-Reactive Protein < 5.0 Total Protein Albumin TSH 1.09 05/25/19 14:55 Troponin I < 0.012 NT-Pro-B Natriuret Pep 1600 H Impressions: Chest X-Ray 05/25/19 14:33 IMPRESSION: No interval change in the chest with chronic pleural and parenchymal changes in the left base. Assessment and Plan - Diagnosis (1) Moderate to severe pulmonary hypertension Is this a current diagnosis for this admission?: Yes Plan: Coordinating with Dr. Garcia who referred patient into the hospital for admission. TTE in his office showed RVSP over 70 with similarly unremarkable left heart. Likely pulmonary hypertension is related to right heart failure causing patient's symptoms of progressive dyspnea. Vitals currently stable and not hypoxic on room air but expresses profound MOISE. Put on gentle diuresis. Dr. Garcia to evaluate patient tomorrow and planning for possibility of dobutamine drip vs milrinone. Monitor on telemetry, strict I's and O's, fluid restriction (2) Dyspnea on effort Is this a current diagnosis for this admission?: Yes Plan: Suspected to be secondary to pulmonary hypertension is likely with some element of right heart failure. COVID-19 test performed. Results pending. (3) CAD (coronary artery disease) Is this a current diagnosis for this admission?: Yes Plan: Continue statin and Plavix. Distant history of CABG and PCI with stenting. (4) Diabetes mellitus Qualifiers: Diabetes mellitus type: type 2 Is this a current diagnosis for this admission?: Yes Plan: Metformin. Sliding scale insulin. Accu-Cheks. ADA diet. - Time Time Spent with patient: 25-34 minutes
[2019-05-25] MEDS: ENOXAPARIN SODIUM INJ 40 MG/0.4 ML DISP.SYRIN SUBCUT SCH (19:49)
[2019-05-25] MEDS: INSULIN LISPRO 100 UNIT/ML 3 ML VIAL SUBCUT SCH (21:59)
[2019-05-25] MEDS ORDERED: FUROSEMIDE INJ/PF 20 MG/2 ML SDV IV SCH (22:00)
[2019-05-25] MEDS: SUCRALFATE 1 GM TABLET PO SCH (23:48)
[2019-05-26 05:26] LABS: ABSOLUTE BASOPHILS # (AUTO) 0.1 10^3/uL (0.0-0.2); ABSOLUTE EOSINOPHILS # (AUTO) 0.3 10^3/uL (0.0-0.6); ABSOLUTE LYMPHOCYTES (AUTO) 1.6 10^3/uL (0.5-4.7); ABSOLUTE MONOCYTES (AUTO) 0.9 10^3/uL (0.1-1.4); ABSOLUTE NEUT (AUTO) 5.2 10^3/uL (1.7-8.2); BASOPHILS % (AUTO) 0.8 % (0-2); EOSINOPHILS % (AUTO) 3.7 % (0-6); HEMATOCRIT 25.8 % (37.9-51.0); HEMOGLOBIN 8.5 g/dL (13.5-17.0); LYMPHOCYTES % (AUTO) 19.9 % (13-45); MEAN CORPUSCULAR HEMOGLOBIN 25.1 pg (27.0-33.4); MEAN CORPUSCULAR VOLUME 76 fl (80-97); MONOCYTES % (AUTO) 10.8 % (3-13); PLATELET COUNT 277 10^3/uL (150-450); RED CELL DISTRIBUTION WIDTH 21.8 % (11.5-14.0); SEGMENTED NEUTROPHILS % (AUTO) 64.8 % (42-78); TOTAL CELLS COUNTED % (AUTO) 100 %
[2019-05-26 05:45] LABS: ALBUMIN 3.8 g/dL (3.5-5.0); ALKALINE PHOSPHATASE 47 U/L (38-126); ANION GAP 5 (5-19); ASPARTATE AMINO TRANSFERASE 21 U/L (17-59); BILIRUBIN,TOTAL 0.8 mg/dL (0.2-1.3); BLOOD UREA NITROGEN 12 mg/dL (7-20); CALCIUM 8.6 mg/dL (8.4-10.2); CARBON DIOXIDE 28 mmol/L (22-30); CHLORIDE 108 mmol/L (98-107); GLUCOSE 115 mg/dL (75-110); PHOSPHORUS 3.9 mg/dL (2.5-4.5); POTASSIUM 3.4 mmol/L (3.6-5.0); TOTAL PROTEIN 6.6 g/dL (6.3-8.2)
[2019-05-26] MEDS: SUCRALFATE 1 GM TABLET PO SCH ×3 (06:27→18:40)
--- NOTE | 2019-05-26 07:44 | EKG REPORT ---
SEVERITY:- OTHERWISE NORMAL ECG - SINUS RHYTHM BORDERLINE LEFT AXIS DEVIATION NONSPECIFIC ST-T CHANGES- INFERIOR LEADS : Confirmed by: Brendon Akers MD 26-May-2019 07:42:55
[2019-05-26] MEDS: INSULIN LISPRO 100 UNIT/ML 3 ML VIAL SUBCUT SCH ×4 (09:06→22:28)
[2019-05-26] MEDS: FUROSEMIDE INJ/PF 20 MG/2 ML SDV IV SCH ×2 (09:12→18:40)
[2019-05-26] MEDS: CLOPIDOGREL BISULFATE 75 MG TABLET PO SCH (09:12)
[2019-05-26] MEDS: METOPROLOL SUCCINATE 50 MG TAB.SR.24H PO SCH (09:12)
[2019-05-26] MEDS: METFORMIN HCL 500 MG TABLET PO SCH ×2 (09:12→18:40)
[2019-05-26] MEDS: PANTOPRAZOLE SODIUM 40 MG TABLET.DR PO SCH ×2 (09:12→18:40)
[2019-05-26] MEDS: ENOXAPARIN SODIUM INJ 40 MG/0.4 ML DISP.SYRIN SUBCUT SCH (09:26)
[2019-05-26] MEDS ORDERED: SIMVASTATIN 40 MG TABLET PO SCH (10:00)
--- NOTE | 2019-05-26 13:38 | PDOC PROGRESS REPORT ---
Subjective Progress Note for:: 05/26/19 Reason For Visit: RIGHT HEART FAILURE 05/26/2019 Shortness of breath, coronary artery disease, diabetes, pulmonary hypertension, Physical Exam Vital Signs: Temp Pulse Resp BP Pulse Ox 98.6 F 73 20 107/50 L 97 05/26/19 08:44 05/26/19 08:44 05/26/19 08:44 05/26/19 08:44 05/26/19 08:44 Intake & Output 05/25/19 05/26/19 05/27/19 06:59 06:59 06:59 Intake Total 420 Output Total 1000 Balance -580 Weight 93.6 kg General appearance: PRESENT: mild distress, well-developed, well-nourished, other - Mild respiratory distress, although patient speaking in full sentences Respiratory exam: PRESENT: decreased breath sounds Cardiovascular exam: PRESENT: RRR. ABSENT: diastolic murmur, rubs, systolic murmur Neurological exam: PRESENT: alert, awake, oriented to person, oriented to place, oriented to time, oriented to situation, CN II-XII grossly intact. ABSENT: motor sensory deficit Psychiatric exam: PRESENT: appropriate affect, normal mood. ABSENT: homicidal ideation, suicidal ideation Results Laboratory Results: 05/26/19 05:03 05/26/19 05:03 05/25/19 05/25/19 05/25/19 14:55 14:55 14:55 WBC 7.9 RBC 3.71 L Hgb 9.3 L Hct 29.3 L MCV 79 L MCH 25.0 L MCHC 31.7 L RDW 21.1 H Plt Count 329 Seg Neutrophils % 73.1 Carbonic Acid HCO3/H2CO3 Ratio ABG pH ABG pCO2 ABG pO2 ABG HCO3 ABG O2 Saturation ABG Base Excess FiO2 Sodium 141.2 Potassium 4.3 Chloride 110 H Carbon Dioxide 23 Anion Gap 8 BUN 15 Creatinine 0.78 Est GFR ( Amer) > 60 Glucose 126 H Calcium 9.1 Phosphorus Magnesium 1.4 L Ferritin Total Bilirubin 0.9 AST 34 Alkaline Phosphatase 47 C-Reactive Protein Total Protein 7.4 Albumin 4.2 TSH Urine Color Urine Appearance Urine pH Ur Specific [place] Urine Protein Urine Glucose (UA) Urine Ketones Urine Blood Urine Nitrite Ur Leukocyte Esterase Urine WBC (Auto) Urine RBC (Auto) 05/25/19 05/25/19 05/25/19 14:55 14:55 17:09 WBC RBC Hgb Hct MCV MCH MCHC RDW Plt Count Seg Neutrophils % Carbonic Acid 0.87 L HCO3/H2CO3 Ratio 22:1 ABG pH 7.45 ABG pCO2 28.9 L ABG pO2 62.3 L ABG HCO3 19.7 L ABG O2 Saturation 93.3 L ABG Base Excess -3.6 FiO2 ROOM AIR Sodium Potassium Chloride Carbon Dioxide Anion Gap BUN Creatinine Est GFR ( Amer) Glucose Calcium Phosphorus Magnesium Ferritin 10.50 L Total Bilirubin AST Alkaline Phosphatase C-Reactive Protein < 5.0 Total Protein Albumin TSH 1.09 Urine Color Urine Appearance Urine pH Ur Specific [place] Urine Protein Urine Glucose (UA) Urine Ketones Urine Blood Urine Nitrite Ur Leukocyte Esterase Urine WBC (Auto) Urine RBC (Auto) 05/25/19 05/26/19 05/26/19 18:32 05:03 05:03 WBC 8.0 RBC 3.40 L Hgb 8.5 L Hct 25.8 L MCV 76 L MCH 25.1 L MCHC 33.0 RDW 21.8 H Plt Count 277 Seg Neutrophils % 64.8 Carbonic Acid HCO3/H2CO3 Ratio ABG pH ABG pCO2 ABG pO2 ABG HCO3 ABG O2 Saturation ABG Base Excess FiO2 Sodium 140.6 Potassium 3.4 L Chloride 108 H Carbon Dioxide 28 Anion Gap 5 BUN 12 Creatinine 0.79 Est GFR ( Amer) > 60 Glucose 115 H Calcium 8.6 Phosphorus 3.9 Magnesium 1.6 Ferritin Total Bilirubin 0.8 AST 21 Alkaline Phosphatase 47 C-Reactive Protein Total Protein 6.6 Albumin 3.8 TSH Urine Color YELLOW Urine Appearance CLEAR Urine pH 5.0 Ur Specific [place] 1.024 Urine Protein NEGATIVE Urine Glucose (UA) NEGATIVE Urine Ketones NEGATIVE Urine Blood NEGATIVE Urine Nitrite NEGATIVE Ur Leukocyte Esterase NEGATIVE Urine WBC (Auto) 0 Urine RBC (Auto) 0 05/25/19 14:55 Troponin I < 0.012 NT-Pro-B Natriuret Pep 1600 H Impressions: Chest X-Ray 05/25/19 14:33 IMPRESSION: No interval change in the chest with chronic pleural and parenchymal changes in the left base. Assessment and Plan - Diagnosis (1) Dyspnea Qualifiers: Dyspnea type: unspecified Qualified Code(s): R06.00 - Dyspnea, unspecified Is this a current diagnosis for this admission?: Yes (2) Moderate to severe pulmonary hypertension Is this a current diagnosis for this admission?: Yes (3) CAD (coronary artery disease) Is this a current diagnosis for this admission?: Yes (4) CHF (congestive heart failure) Qualifiers: Heart failure type: diastolic Heart failure chronicity: acute on chronic Qualified Code(s): I50.33 - Acute on chronic diastolic (congestive) heart failure Is this a current diagnosis for this admission?: Yes (5) Diabetes mellitus Qualifiers: Diabetes mellitus type: type 2 Is this a current diagnosis for this admission?: Yes - Plan Summary Summary: 05/26/2019 Count is normal stable 8000 BUN of 12 creatinine 0.79 magnesium is up slightly to 1.6 Rest x-ray shows only chronic changes, nothing acute BNP is at 1600 last month he was at 1190 C-reactive protein less than 5 COVID virus pending, I doubt this will be positive Continuing patient's home medications Toprol 100 mg daily Plavix 75 mg daily Zocor 40 mg daily Lasix 20 mg twice daily tonics 40 mg daily Glucophage thousand milligrams twice daily Carafate 1 g every 6 hours Patient also being seen by cardiology Patient clinically feels better than when he was admitted. Patient will probably need further work-up as an outpatient - Time Time Spent with patient: 25-34 minutes
[2019-05-26] MEDS: ATORVASTATIN CALCIUM 20 MG TABLET PO SCH (21:05)
[2019-05-26] MEDS: LOSARTAN POTASSIUM 25 MG TABLET PO SCH (21:05)
[2019-05-26] MEDS ORDERED: GUAIFENESIN SYRP 200 MG/10 ML UDC PO PRN (21:15)
[2019-05-27] MEDS: SUCRALFATE 1 GM TABLET PO SCH ×4 (01:28→17:17)
[2019-05-27 05:42] LABS: ALKALINE PHOSPHATASE 50 U/L (38-126); ASPARTATE AMINO TRANSFERASE 22 U/L (17-59); BILIRUBIN,TOTAL 0.7 mg/dL (0.2-1.3); CHOLESTEROL 93.26 mg/dL (0-200); TOTAL PROTEIN 6.9 g/dL (6.3-8.2); TRIGLYCERIDES 129 mg/dL (<150)
[2019-05-27 05:53] LABS: DIRECT LDL 48 mg/dL (<100)
[2019-05-27] MEDS: INSULIN LISPRO 100 UNIT/ML 3 ML VIAL SUBCUT SCH ×4 (07:42→22:15)
[2019-05-27] MEDS: PANTOPRAZOLE SODIUM 40 MG TABLET.DR PO SCH ×2 (07:45→17:17)
[2019-05-27] MEDS: METFORMIN HCL 500 MG TABLET PO SCH ×2 (07:45→15:37)
[2019-05-27 09:46] LABS: ANION GAP 7 (5-19); BLOOD UREA NITROGEN 13 mg/dL (7-20); CALCIUM 8.8 mg/dL (8.4-10.2); CARBON DIOXIDE 28 mmol/L (22-30); CHLORIDE 102 mmol/L (98-107); GLUCOSE 113 mg/dL (75-110); POTASSIUM 3.6 mmol/L (3.6-5.0)
[2019-05-27] MEDS: CLOPIDOGREL BISULFATE 75 MG TABLET PO SCH (10:38)
[2019-05-27] MEDS: METOPROLOL SUCCINATE 50 MG TAB.SR.24H PO SCH (10:39)
[2019-05-27] MEDS: ENOXAPARIN SODIUM INJ 40 MG/0.4 ML DISP.SYRIN SUBCUT SCH (10:39)
[2019-05-27] MEDS: LOSARTAN POTASSIUM 25 MG TABLET PO SCH ×2 (10:39→22:14)
[2019-05-27] MEDS: FUROSEMIDE INJ/PF 20 MG/2 ML SDV IV SCH ×2 (10:39→17:17)
[2019-05-27] MEDS: POTASSIUM CHLORIDE 10 MEQ TABLET.ER PO SCH ×2 (10:40→22:16)
--- NOTE | 2019-05-27 12:32 | PDOC PROGRESS REPORT ---
Subjective Progress Note for:: 05/27/19 Reason For Visit: RIGHT HEART FAILURE 05/27/2019 Shortness of breath CAD diabetes pulmonary hypertension Physical Exam Vital Signs: Temp Pulse Resp BP Pulse Ox 98.8 F 64 17 108/58 L 95 05/27/19 11:50 05/27/19 11:50 05/27/19 11:50 05/27/19 11:50 05/27/19 11:50 Intake & Output 05/26/19 05/27/19 05/28/19 06:59 06:59 06:59 Intake Total 420 1080 240 Output Total 1000 Balance -580 1080 240 Weight 93.6 kg 93.6 kg General appearance: PRESENT: no acute distress Respiratory exam: PRESENT: decreased breath sounds Cardiovascular exam: PRESENT: systolic murmur Neurological exam: PRESENT: alert, awake, oriented to person, oriented to place, oriented to time, oriented to situation, CN II-XII grossly intact. ABSENT: motor sensory deficit Psychiatric exam: PRESENT: appropriate affect, normal mood. ABSENT: homicidal ideation, suicidal ideation Results Laboratory Results: 05/26/19 05:03 05/27/19 04:55 05/27/19 05/27/19 04:55 04:55 Sodium 137.2 Potassium 3.6 Chloride 102 Carbon Dioxide 28 Anion Gap 7 BUN 13 Creatinine 1.00 Est GFR ( Amer) > 60 Glucose 113 H Calcium 8.8 Total Bilirubin 0.7 AST 22 Alkaline Phosphatase 50 Total Protein 6.9 Albumin 4.0 Triglycerides 129 Cholesterol 93.26 LDL Cholesterol Direct 48 VLDL Cholesterol 26.0 HDL Cholesterol 34 L 05/25/19 18:50 Throat Throat Culture - Final NORMAL LAURI 05/25/19 14:55 Troponin I < 0.012 NT-Pro-B Natriuret Pep 1600 H Impressions: Chest X-Ray 05/25/19 14:33 IMPRESSION: No interval change in the chest with chronic pleural and parenchymal changes in the left base. Assessment and Plan - Diagnosis (1) Dyspnea Qualifiers: Dyspnea type: unspecified Qualified Code(s): R06.00 - Dyspnea, unspecified Is this a current diagnosis for this admission?: Yes (2) Moderate to severe pulmonary hypertension Is this a current diagnosis for this admission?: Yes (3) CAD (coronary artery disease) Is this a current diagnosis for this admission?: Yes (4) CHF (congestive heart failure) Qualifiers: Heart failure type: diastolic Heart failure chronicity: acute on chronic Qualified Code(s): I50.33 - Acute on chronic diastolic (congestive) heart failure Is this a current diagnosis for this admission?: Yes (5) Diabetes mellitus Qualifiers: Diabetes mellitus type: type 2 Is this a current diagnosis for this admission?: Yes - Plan Summary Summary: 05/26/2019 Count is normal stable 8000 BUN of 12 creatinine 0.79 magnesium is up slightly to 1.6 Rest x-ray shows only chronic changes, nothing acute BNP is at 1600 last month he was at 1190 C-reactive protein less than 5 COVID virus pending, I doubt this will be positive Continuing patient's home medications Toprol 100 mg daily Plavix 75 mg daily Zocor 40 mg daily Lasix 20 mg twice daily tonics 40 mg daily Glucophage thousand milligrams twice daily Carafate 1 g every 6 hours Patient also being seen by cardiology Patient clinically feels better than when he was admitted. Patient will probably need further work-up as an outpatient 05/27/2019 Temperature 99 pulse 70 blood pressure 113/52 O2 sat 98% basically on room air White blood cell count normal electrolytes are normal Patient states he feels better with less shortness of breath but admits he is not up and ambulating like he was prior to coming to the hospital COVID 19 results are pending I would like the patient to get to a regular room and floor to where he can ambulate in room and hopefully be discharged home soon Chest x-ray on admission showed no acute findings No clinical indications for antibiotics - Time Time Spent with patient: 25-34 minutes
--- NOTE | 2019-05-27 14:43 | Progress Note ---
Provider Note Provider Note: CARDIOLOGY PROGRESS NOTE by Dr. Chantal Everett on 05/27/2019. SUBJECTIVE: The patient is test for COVID19 has come back negative. The patient is being moved to the telemetry floor. He still has shortness of breath and some degree of orthopnea. He states the losartan has helped him a little. We will start the patient on duo dobutamine drip at 2.5 mcg/kg/min. There is no arrhythmia seen. The patient has no chest pain or discomfort. There is no PND. There is no atrial or ventricular arrhythmia seen on the monitor. There is no leg edema. There is no TIA CVA symptoms. PHYSICAL EXAMINATION: The patient is mildly obese. At no acute distress at rest. Selected Entries 05/27/19 05/27/19 15:34 15:57 Temperature 98.5 F 97.9 F Temperature Oral Oral Source Pulse Rate 69 68 Respiratory 18 19 Rate Blood Pressure 102/50 L 122/62 Blood Pressure 67 82 Mean BP Location Right Arm Left Arm BP Position Supine Sitting O2 Sat by Pulse 94 93 Oximetry Oxygen Delivery Room Air Room Air Method HEAD: Is atraumatic normocephalic. EYES: Pupils are equal round regular r eactive to light accommodation. Extraocular movements are normal. There is no conjunctival pallor. There is no scleral icterus. EARS: TYMPANIC MEMBRANES ARE INTACT. EXTERNAL AUDITORY CANALS ARE CLEAR. Nose: There is no deviated nasal septum. There is no inflammation of the nasal mucous membrane. MOUTH: Mucous membranes of the mouth are moist. Tongue is moist. THROAT: There is no redness of the oropharynx. There is no exudates. SKIN: There is no skin rashes. There is no petechia or ecchymosis. NECK: Is supple there is mild JVD present. Carotids are equal there is no bruits. There is no lymphadenopathy. There is no goiter. There is no accessory muscle respiration use. Trachea central. LUNGS: Is clear to auscultation percussion without any rhonchi rales or wheezing. HEART: S1-S2 is heard. There is no S3 gallop. There is no S4 gallop. Systolic murmur in the left sternal border and the apex there is no rub. ABDOMEN: Is soft. There is no hepatosplenomegaly. Bowel sounds are well heard. EXTREMITIES: Femorals are well felt. Leg pulses well felt. There is trace to mild pedal edema bilaterally. There is no DVT or cellulitis. There is no cyanosis or clubbing. There is no calf tenderness. 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 PSYCHIATRIC: The patient judgment insight are intact his affect is normal. Labs- All tests 24 hr 05/25/19 05/27/19 05/27/19 18:32 04:55 04:55 Sodium 137.2 Potassium 3.6 Chloride 102 Carbon Dioxide 28 Anion Gap 7 BUN 13 Creatinine 1.00 Est GFR ( Amer) > 60 Est GFR (MDRD) Non-Af > 60 Glucose 113 H POC Glucose Calcium 8.8 Total Bilirubin 0.7 Direct Bilirubin 0.0 Neonat Total Bilirubin Not Reportable Neonat Direct Bilirubin Not Reportable Neonat Indirect Bili Not Reportable AST 22 ALT 13 Alkaline Phosphatase 50 Total Protein 6.9 Albumin 4.0 Triglycerides 129 Cholesterol 93.26 LDL Cholesterol Direct 48 VLDL Cholesterol 26.0 HDL Cholesterol 34 L COVID-19 Source NASOPHARYNGEAL COVID-19 (ADOL[facility]) NOT DETECTED 05/27/19 05/27/19 05/27/19 07:38 10:57 15:37 Sodium Potassium Chloride Carbon Dioxide Anion Gap BUN Creatinine Est GFR ( Amer) Est GFR (MDRD) Non-Af Glucose POC Glucose 112 H 121 H 130 H Calcium Total Bilirubin Direct Bilirubin Neonat Total Bilirubin Neonat Direct Bilirubin Neonat Indirect Bili AST ALT Alkaline Phosphatase Total Protein Albumin Triglycerides Cholesterol LDL Cholesterol Direct VLDL Cholesterol HDL Cholesterol COVID-19 Source COVID-19 (ADOLFO) 05/27/19 20:51 Sodium Potassium Chloride Carbon Dioxide Anion Gap BUN Creatinine Est GFR ( Amer) Est GFR (MDRD) Non-Af Glucose POC Glucose 125 H Calcium Total Bilirubin Direct Bilirubin Neonat Total Bilirubin Neonat Direct Bilirubin Neonat Indirect Bili AST ALT Alkaline Phosphatase Total Protein Albumin Triglycerides Cholesterol LDL Cholesterol Direct VLDL Cholesterol HDL Cholesterol COVID-19 Source COVID-19 ([facility]OLFO) Labs- All tests 24 hr 05/25/19 05/27/19 05/27/19 18:32 04:55 04:55 Sodium 137.2 Potassium 3.6 Chloride 102 Carbon Dioxide 28 Anion Gap 7 BUN 13 Creatinine 1.00 Est GFR ( Amer) > 60 Est GFR (MDRD) Non-Af > 60 Glucose 113 H POC Glucose Calcium 8.8 Total Bilirubin 0.7 Direct Bilirubin 0.0 Neonat Total Bilirubin Not Reportable Neonat Direct Bilirubin Not Reportable Neonat Indirect Bili Not Reportable AST 22 ALT 13 Alkaline Phosphatase 50 Total Protein 6.9 Albumin 4.0 Triglycerides 129 Cholesterol 93.26 LDL Cholesterol Direct 48 VLDL Cholesterol 26.0 HDL Cholesterol 34 L COVID-19 Source NASOPHARYNGEAL COVID-19 ([facility]) NOT DETECTED 05/27/19 05/27/19 05/27/19 07:38 10:57 15:37 Sodium Potassium Chloride Carbon Dioxide Anion Gap BUN Creatinine Est GFR ( Amer) Est GFR (MDRD) Non-Af Glucose POC Glucose 112 H 121 H 130 H Calcium Total Bilirubin Direct Bilirubin Neonat Total Bilirubin Neonat Direct Bilirubin Neonat Indirect Bili AST ALT Alkaline Phosphatase Total Protein Albumin Triglycerides Cholesterol LDL Cholesterol Direct VLDL Cholesterol HDL Cholesterol COVID-19 Source COVID-19 (ADOLFO) 05/27/19 20:51 Sodium Potassium Chloride Carbon Dioxide Anion Gap BUN Creatinine Est GFR ( Amer) Est GFR (MDRD) Non-Af Glucose POC Glucose 125 H Calcium Total Bilirubin Direct Bilirubin Neonat Total Bilirubin Neonat Direct Bilirubin Neonat Indirect Bili AST ALT Alkaline Phosphatase Total Protein Albumin Triglycerides Cholesterol LDL Cholesterol Direct VLDL Cholesterol HDL Cholesterol COVID-19 Source COVID-19 (ADOLFO) IMPRESSION/RECOMMENDATION: 1. Severe dyspnea on exertion.: The patient's dyspnea on exertion while walking inside the room continues with only marginal improvement we will start the patient on dobutamine to see if this will get the pulmonary hypertension down at least temporarily. We will also start the patient on sildenafil. Note that the patient's not on any nitrates or alpha blocking agents. There is dyspnea on exertion is most likely secondary to severe pulmonary hypertension. 2. Severe pulmonary hypertension: In view of the patient's C-reactive. Protein being normal I do not think that collagen vascular disease is a cardioprotective patient's pulmonary hypertension. The patient should have a sleep study this was ordered as an outpatient which the patient has not yet had. Will check the patient's nocturnal pulse oximetry. As mentioned earlier we will start the pa tient on dobutamine drip and also start the patient on sildenafil. 3. Coronary artery disease: History of coronary bypass graft surgery and history of stents. No anginal symptoms. History of prior myocardial infarction. 4. Hypertension: Blood pressure well controlled. 5. Diabetes mellitus: Continue antidiabetic regimen and Accu-Cheks as per protocol. Medications reviewed dobutamine and sildenafil started. Medical decision making is of high complexity. 60 minutes spent as patient more than 50% time spent in direct patient care. Discussed the case with the attending provider. 40-minute spent as patient more than 50% time spent in direct patient care. Will follow
[2019-05-27] MEDS ORDERED: DOBUTAMINE HCL/D5W 500 MG/250 ML RTUINJ IV PRN (16:23)
[2019-05-27] MEDS: ATORVASTATIN CALCIUM 20 MG TABLET PO SCH (22:16)
[2019-05-28] MEDS: SUCRALFATE 1 GM TABLET PO SCH ×5 (00:09→23:27)
[2019-05-28] MEDS ORDERED: SILDENAFIL CITRATE 20 MG TABLET PO SCH (08:00)
[2019-05-28] MEDS: INSULIN LISPRO 100 UNIT/ML 3 ML VIAL SUBCUT SCH ×4 (08:08→22:17)
[2019-05-28] MEDS: METFORMIN HCL 500 MG TABLET PO SCH ×2 (08:11→17:35)
[2019-05-28] MEDS: PANTOPRAZOLE SODIUM 40 MG TABLET.DR PO SCH ×2 (08:11→17:35)
[2019-05-28] MEDS: LOSARTAN POTASSIUM 25 MG TABLET PO SCH ×2 (09:51→22:17)
[2019-05-28] MEDS: ENOXAPARIN SODIUM INJ 40 MG/0.4 ML DISP.SYRIN SUBCUT SCH (09:52)
[2019-05-28] MEDS: POTASSIUM CHLORIDE 10 MEQ TABLET.ER PO SCH ×2 (09:52→22:13)
[2019-05-28] MEDS: CLOPIDOGREL BISULFATE 75 MG TABLET PO SCH (09:52)
[2019-05-28] MEDS: FUROSEMIDE INJ/PF 20 MG/2 ML SDV IV SCH ×2 (09:52→17:35)
[2019-05-28] MEDS: METOPROLOL SUCCINATE 50 MG TAB.SR.24H PO SCH (09:52)
[2019-05-28] MEDS: SILDENAFIL CITRATE 20 MG TABLET PO SCH ×3 (09:54→20:16)
--- NOTE | 2019-05-28 11:22 | PDOC PROGRESS REPORT ---
Subjective Progress Note for:: 05/28/19 Reason For Visit: RIGHT HEART FAILURE 05/28/2019 Shortness of breath coronary disease diabetes pulmonary hypertension Physical Exam Vital Signs: Temp Pulse Resp BP Pulse Ox 98.0 F 73 16 97/45 L 94 05/28/19 07:19 05/28/19 07:19 05/28/19 07:19 05/28/19 11:00 05/28/19 07:19 Pulse Oximeter Nocturnal Start: 05/27/19 17:12 Freq: RTQ4 Status: Complete Protocol: Document 05/28/19 04:15 DBE (Rec: 05/28/19 05:46 DBE [email or web address]) Nocturnal Pulse Oximetry Equipment Usage Equipment in Use Oxygen Delivery Method (includes room Room Air air) O2 Sat by Pulse Oximetry (92-100) 96 Continuous Pulse Oximeter Set Up No Continuous SpO2 Discontinued No Continuous SpO2 Machine # 5 Intake & Output 05/27/19 05/28/19 05/29/19 06:59 06:59 06:59 Intake Total 1080 477 Output Total 1050 Balance 1080 -573 Weight 93.6 kg 93.2 kg General appearance: PRESENT: no acute distress, other - Sitting up in the chair with no complaints talking in full sentences Respiratory exam: PRESENT: clear to auscultation juani, decreased breath sounds - Slightly decreased breath sounds left lower lobe. ABSENT: rales, rhonchi, wheezes Cardiovascular exam: PRESENT: systolic murmur Neurological exam: PRESENT: alert, awake, oriented to person, oriented to place, oriented to time, oriented to situation, CN II-XII grossly intact. ABSENT: motor sensory deficit Psychiatric exam: PRESENT: appropriate affect, normal mood. ABSENT: homicidal ideation, suicidal ideation Results Laboratory Results: 05/26/19 05:03 05/27/19 04:55 05/25/19 18:50 Throat Throat Culture - Final NORMAL LAURI 05/25/19 14:55 Troponin I < 0.012 NT-Pro-B Natriuret Pep 1600 H Impressions: Chest X-Ray 05/25/19 14:33 IMPRESSION: No interval change in the chest with chronic pleural and parenchymal changes in the left base. Assessment and Plan - Diagnosis (1) Dyspnea Qualifiers: Dyspnea type: unspecified Qualified Code(s): R06.00 - Dyspnea, unspecified Is this a current diagnosis for this admission?: Yes (2) Moderate to severe pulmonary hypertension Is this a current diagnosis for this admission?: Yes (3) CAD (coronary artery disease) Is this a current diagnosis for this admission?: Yes (4) CHF (congestive heart failure) Qualifiers: Heart failure type: diastolic Heart failure chronicity: acute on chronic Qualified Code(s): I50.33 - Acute on chronic diastolic (congestive) heart failure Is this a current diagnosis for this admission?: Yes (5) Diabetes mellitus Qualifiers: Diabetes mellitus type: type 2 Is this a current diagnosis for this admission?: Yes - Plan Summary Summary: 05/26/2019 Count is normal stable 8000 BUN of 12 creatinine 0.79 magnesium is up slightly to 1.6 Rest x-ray shows only chronic changes, nothing acute BNP is at 1600 last month he was at 1190 C-reactive protein less than 5 COVID virus pending, I doubt this will be positive Continuing patient's home medications Toprol 100 mg daily Plavix 75 mg daily Zocor 40 mg daily Lasix 20 mg twice daily tonics 40 mg daily Glucophage thousand milligrams twice daily Carafate 1 g every 6 hours Patient also being seen by cardiology Patient clinically feels better than when he was admitted. Patient will probably need further work-up as an outpatient 05/27/2019 Temperature 99 pulse 70 blood pressure 113/52 O2 sat 98% basically on room air White blood cell count normal electrolytes are normal Patient states he feels better with less shortness of breath but admits he is not up and ambulating like he was prior to coming to the hospital COVID 19 results are pending I would like the patient to get to a regular room and floor to where he can ambulate in room and hopefully be discharged home soon Chest x-ray on admission showed no acute findings No clinical indications for antibiotics 05/28/2019 Patient now on dobutamine drip 2.5 mcq as well as Sildenafil for his right heart failure Has been up into the bathroom Labs appear to be running normal glucose between 120 and 130, calcium 8.8 COVID virus is negative Patient's blood pressure approximately 102/53 and pulse 74 and regular Will defer to cardiology concerning treatment plan at this time - Time Time Spent with patient: 25-34 minutes
--- NOTE | 2019-05-28 16:00 | Progress Note ---
Provider Note Provider Note: CARDIOLOGY PROGRESS NOTE by Dr. Chantal Everett on 05/28/2019. OBJECTIVE: The patient states that shortness of breath is vastly improved. He has no further leg edema. He has no chest pain or discomfort. There is no PND orthopnea. There is no leg edema. There is no arrhythmia seen on the monitor. There is no TIA CVA symptoms. His dobutamine drip was discontinued due to his blood pressure being 86 systolic although the patient was asymptomatic. The patient is also tolerating sildenafil. PHYSICAL EXAMINATION: The patient is mildly obese. In no acute distress. Selected Entries 05/28/19 05/28/19 15:38 16:00 Temperature 97.8 F Temperature Oral Source Pulse Rate 71 Respiratory 16 Rate Blood Pressure 90/42 L BP Location Right Arm BP Position Supine O2 Sat by Pulse 91 L Oximetry Oxygen Delivery Room Air Method HEAD: Is atraumatic normocephalic. EYES: Pupils are equal round regular reactive to light accommodation. Extraocular movements are normal. There is no conjunctival pallor. There is no scleral icterus. EARS: TYMPANIC MEMBRANES ARE INTACT. EXTERNAL AUDITORY CANALS ARE CLEAR. Nose: There is no deviated nasal septum. There is no inflammation of the nasal mucous membrane. MOUTH: Mucous membranes of the mouth are moist. Tongue is moist. THROAT: There is no redness of the oropharynx. There is no exudates. SKIN: There is no skin rashes. There is no petechia or ecchymosis. NECK: Is supple there is mild JVD present. Carotids are equal there is no bruits. There is no lymphadenopathy. There is no goiter. There is no accessory muscle respiration use. Trachea central. LUNGS: Is clear to auscultation percussion without any rhonchi rales or wheezing. HEART: S1-S2 is heard. There is no S3 gallop. There is no S4 gallop. Systolic murmur in the left sternal border and the apex there is no rub. ABDOMEN: Is soft. There is no hepatosplenomegaly. Bowel sounds are well heard. EXTREMITIES: Femorals are well felt. Leg pulses well felt. There is trace to mild pedal edema bilaterally. There is no DVT or cellulitis. There is no cyanosis or clubbing. There is no calf tenderness. 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 PSYCHIATRIC: The patient judgment insight are intact his affect is normal. Labs- All tests 24 hr 05/28/19 05/28/19 05/28/19 07:21 11:08 16:03 POC Glucose 119 H 137 H 143 H 05/28/19 21:13 POC Glucose 166 H Chest X-Ray 05/25/19 14:33 IMPRESSION: No interval change in the chest with chronic pleural and parenchymal changes in the left base. IMPRESSION/RECOMMENDATION: 1. Severe dyspnea on exertion.: The patient's dyspnea on exertion vastly improved. His leg edema is resolved. His dobutamine drip/infusion had to be discontinued due to low blood pressure. He is all sildenafil and tolerating it well. dyspnea on exertion is secondary to severe pulmonary hypertension. 2. Severe pulmonary hypertension: In view of the patient's C-reactive. Protein being normal I do not think that collagen vascular disease is a cardioprotective patient's pulmonary hypertension. The patient should have a sleep study this was ordered as an outpatient which the patient has not yet had. 3. Coronary artery disease: History of coronary bypass graft surgery and history of stents. No anginal symptoms. History of prior myocardial infarction. 4. Hypertension: Blood pressure well controlled. 5. Diabetes mellitus: Continue antidiabetic regimen and Accu-Cheks as per protocol. 6. Hyperlipidemia. Continue atorvastatin. 7. History of GI bleed secondary to esophageal ulcer. S/p cauterization. No recurrence. Medications adjusted. Medication regimen and management plan discussed with attending physician on the case. Medical decision making hours of moderate to high complexity in view of the need to adjust his medications including the decision to stop dobutamine drip. 40 minutes spent as patient more than 50% of time spent in direct patient care. Will probably discuss anticipate discharge the patient in 24 to 48 hours.
[2019-05-28] MEDS: ATORVASTATIN CALCIUM 20 MG TABLET PO SCH (22:13)
[2019-05-29] MEDS: SUCRALFATE 1 GM TABLET PO SCH ×2 (05:24→13:27)
[2019-05-29] MEDS: CLOPIDOGREL BISULFATE 75 MG TABLET PO SCH (09:53)
[2019-05-29] MEDS: PANTOPRAZOLE SODIUM 40 MG TABLET.DR PO SCH (09:53)
[2019-05-29] MEDS: FUROSEMIDE INJ/PF 20 MG/2 ML SDV IV SCH (09:53)
[2019-05-29] MEDS: METOPROLOL SUCCINATE 50 MG TAB.SR.24H PO SCH (09:53)
[2019-05-29] MEDS: POTASSIUM CHLORIDE 10 MEQ TABLET.ER PO SCH (09:54)
[2019-05-29] MEDS: SILDENAFIL CITRATE 20 MG TABLET PO SCH ×2 (09:54→13:28)
[2019-05-29] MEDS: METFORMIN HCL 500 MG TABLET PO SCH (09:54)
[2019-05-29] MEDS: LOSARTAN POTASSIUM 25 MG TABLET PO SCH (09:55)
[2019-05-29] MEDS: INSULIN LISPRO 100 UNIT/ML 3 ML VIAL SUBCUT SCH ×2 (09:55→12:32)
[2019-05-29] MEDS: ENOXAPARIN SODIUM INJ 40 MG/0.4 ML DISP.SYRIN SUBCUT SCH (09:56)
--- NOTE | 2019-05-29 10:15 | PDOC PROGRESS REPORT ---
Subjective Progress Note for:: 05/29/19 Reason For Visit: RIGHT HEART FAILURE 05/29/2019 Shortness of breath, pulmonary hypertension, diabetes, coronary disease Physical Exam Vital Signs: Temp Pulse Resp BP Pulse Ox 98.8 F 70 18 101/40 L 91 L 05/29/19 08:12 05/29/19 08:12 05/29/19 08:12 05/29/19 08:12 05/29/19 08:12 Pulse Oximeter Nocturnal Start: 05/27/19 17:12 Freq: RTQ4 Status: Complete Protocol: Document 05/28/19 04:15 DBE (Rec: 05/28/19 05:46 DBE [email or web address]) Nocturnal Pulse Oximetry Equipment Usage Equipment in Use Oxygen Delivery Method (includes room Room Air air) O2 Sat by Pulse Oximetry (92-100) 96 Continuous Pulse Oximeter Set Up No Continuous SpO2 Discontinued No Continuous SpO2 Machine # 5 Intake & Output 05/28/19 05/29/19 05/30/19 06:59 06:59 06:59 Intake Total 477 360 Output Total 1050 Balance -573 360 Weight 93.2 kg 95.4 kg General appearance: PRESENT: no acute distress, other - Much improved Respiratory exam: PRESENT: clear to auscultation juani. ABSENT: rales, rhonchi, wheezes Cardiovascular exam: PRESENT: systolic murmur Neurological exam: PRESENT: alert, awake, oriented to person, oriented to place, oriented to time, oriented to situation, CN II-XII grossly intact. ABSENT: motor sensory deficit Psychiatric exam: PRESENT: appropriate affect, normal mood. ABSENT: homicidal ideation, suicidal ideation Results Laboratory Results: 05/26/19 05:03 05/27/19 04:55 05/25/19 14:55 Troponin I < 0.012 NT-Pro-B Natriuret Pep 1600 H Impressions: Chest X-Ray 05/25/19 14:33 IMPRESSION: No interval change in the chest with chronic pleural and parenchymal changes in the left base. Assessment and Plan - Diagnosis (1) Dyspnea Qualifiers: Dyspnea type: unspecified Qualified Code(s): R06.00 - Dyspnea, unspecified Is this a current diagnosis for this admission?: Yes (2) Moderate to severe pulmonary hypertension Is this a current diagnosis for this admission?: Yes (3) CAD (coronary artery disease) Is this a current diagnosis for this admission?: Yes (4) CHF (congestive heart failure) Qualifiers: Heart failure type: diastolic Heart failure chronicity: acute on chronic Qualified Code(s): I50.33 - Acute on chronic diastolic (congestive) heart failure Is this a current diagnosis for this admission?: Yes (5) Diabetes mellitus Qualifiers: Diabetes mellitus type: type 2 Is this a current diagnosis for this admission?: Yes - Plan Summary Summary: 05/26/2019 Count is normal stable 8000 BUN of 12 creatinine 0.79 magnesium is up slightly to 1.6 Rest x-ray shows only chronic changes, nothing acute BNP is at 1600 last month he was at 1190 C-reactive protein less than 5 COVID virus pending, I doubt this will be positive Continuing patient's home medications Toprol 100 mg daily Plavix 75 mg daily Zocor 40 mg daily Lasix 20 mg twice daily tonics 40 mg daily Glucophage thousand milligrams twice daily Carafate 1 g every 6 hours Patient also being seen by cardiology Patient clinically feels better than when he was admitted. Patient will probably need further work-up as an outpatient 05/27/2019 Temperature 99 pulse 70 blood pressure 113/52 O2 sat 98% basically on room air White blood cell count normal electrolytes are normal Patient states he feels better with less shortness of breath but admits he is not up and ambulating like he was prior to coming to the hospital COVID 19 results are pending I would like the patient to get to a regular room and floor to where he can ambulate in room and hopefully be discharged home soon Chest x-ray on admission showed no acute findings No clinical indications for antibiotics 05/28/2019 Patient now on dobutamine drip 2.5 mcq as well as Sildenafil for his right heart failure Has been up into the bathroom Labs appear to be running normal glucose between 120 and 130, calcium 8.8 COVID virus is negative Patient's blood pressure approximately 102/53 and pulse 74 and regular Will defer to cardiology concerning treatment plan at this time 05/29/2019 Patient is is actually up walking the halls with no visible shortness of breath. Patient states he feels significantly better. Possibility of discharging patient to home today. Patient's blood pressures have been running just a little low for him 90/40, however he is now back in 101/40 with ambulation and being fully awake Heart rate is stable in the 70s If cardiology agrees will discharge patient home today to follow-up as an outpatient. Will discharge home on medications as indicated - Time Time Spent with patient: 25-34 minutes
--- NOTE | 2019-05-29 12:01 | Progress Note ---
Provider Note Provider Note: CARDIOLOGY PROGRESS NOTE by Dr. Chantal Collins on 05/29/2019. SUBJECTIVE: The patient states that his shortness of breath with exertion is improved vastly. He denies any chest pain or discomfort. There is no leg edema. There is no PND orthopnea or palpitations. There is no arrhythmia seen on the monitor. There is no recurrence of upper GI bleed. The patient walked around and subcu air and his oxygen saturation remained around 93 to 96% on room air. Hence he does not require home oxygen. PHYSICAL EXAMINATION: The patient mildly obese in no acute distress. Selected Entries 05/29/19 11:21 Temperature 98.6 F Temperature Oral Source Pulse Rate 66 Respiratory 18 Rate Blood Pressure 99/44 L Blood Pressure 62 Mean O2 Sat by Pulse 95 Oximetry Oxygen Delivery Room Air Method HEAD: Is atraumatic normocephalic. EYES: Pupils are equal round regular reactive to light accommodation. Extraocular movements are normal. There is no conjunctival pallor. There is no scleral icterus. EARS: TYMPANIC MEMBRANES ARE INTACT. EXTERNAL AUDITORY CANALS ARE CLEAR. Nose: There is no deviated nasal septum. There is no inflammation of the nasal mucous membrane. MOUTH: Mucous membranes of the mouth are moist. Tongue is moist. THROAT: There is no redness of the oropharynx. There is no exudates. SKIN: There is no skin rashes. There is no petechia or ecchymosis. NECK: Is supple there is mild JVD present. Carotids are equal there is no bruits. There is no lymphadenopathy. There is no goiter. There is no accessory muscle respiration use. Trachea central. LUNGS: Is clear to auscultation percussion without any rhonchi rales or wheezing. HEART: S1-S2 is heard. There is no S3 gallop. There is no S4 gallop. Systolic murmur in the left sternal border and the apex there is no rub. ABDOMEN: Is soft. There is no hepatosplenomegaly. Bowel sounds are well heard. EXTREMITIES: Femorals are well felt. Leg pulses well felt. There is no pedal edema bilaterally. There is no DVT or cellulitis. There is no cyanosis or clubbing. There is no calf tenderness. 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 PSYCHIATRIC: The patient judgment insight are intact his affect is normal. Labs- All tests 24 hr 05/28/19 05/28/19 05/29/19 16:03 21:13 08:10 POC Glucose 143 H 166 H 173 H 05/29/19 11:21 POC Glucose 146 H Chest X-Ray 05/25/19 14:33 IMPRESSION: No interval change in the chest with chronic pleural and parenchymal changes in the left base. IMPRESSION/RECOMMENDATION: 1. Severe dyspnea on exertion.: The patient's dyspnea on exertion vastly improved. His leg edema is resolved. His dobutamine drip/infusion had to be discontinued due to low blood pressure. He is all sildenafil and tolerating it well. dyspnea on exertion is secondary to severe pulmonary hypertension. 2. Severe pulmonary hypertension: In view of the patient's C-reactive. Protein being normal I do not think that collagen vascular disease is a cardioprotective patient's pulmonary hypertension. The patient should have a sleep study this was ordered as an outpatient which the patient has not yet had. 3. Coronary artery disease: History of coronary bypass graft surgery and history of stents. No anginal symptoms. History of prior myocardial infarction. 4. Hypertension: Blood pressure well controlled. 5. Diabetes mellitus: Continue antidiabetic regimen and Accu-Cheks as per protocol. 6. Hyperlipidemia. Continue atorvastatin. 7. History of GI bleed secondary to esophageal ulcer. S/p cauterization. No recurrence. Medications reviewed. Medication changes made. Discharge medications discussed with the attending provider. Medical regimen and management plan also discussed with the attending provider. In spite of the patient improving medical decision making is of high complexity in view of the medication changes made that have to be discussed with the patient and with the attending provider. 55 minutes spent as patient more than 50% of time spent in direct patient care. The patient from my point of view can be discharged. We will follow-up the patient in the office. RECOMMENDED DISCHARGE MEDICATIONS: 1. Metformin ER 1000 mg p.o. twice daily 2. Plavix 75 mg p.o. daily. 3. Sucralfate 1 g p.o. every 6 hours 4. Protonix [address] p[address]o. every morning 5. Metoprolol succinate 100 mg extended release half tablet p.o. twice daily. 6. Discontinue simvastatin. 7. Atorvastatin 10 mg p.o. daily 8. Amlodipine 2.5 mg p.o. daily 9. Valsartan 40 mg p.o. twice daily. 10. Sildenafil 20 mg p.o. 3 times daily 11. Lasix 20 mg p.o. daily. 12. Diphenhydramine chloride 25 mg capsule 1 p.o. every 8 hours as needed for allergy. Patient has been strictly warned not to take nitrates or nitrate-containing products in view of the patient being on sildenafil.
[2019-05-29 12:46] VITALS: BP 133/60
--- NOTE | 2019-05-29 18:51 | PDOC DISCHARGE SUMMARY ---
Impression - Admit/DC Date/PCP Admission Date/Primary Care Provider: 05/25/19 17:59 MARIANGEL VINES MD Discharge Date: 05/29/19 - Discharge Diagnosis (1) Dyspnea Is this a current diagnosis for this admission?: Yes (2) Moderate to severe pulmonary hypertension Is this a current diagnosis for this admission?: Yes (3) CAD (coronary artery disease) Is this a current diagnosis for this admission?: Yes (4) CHF (congestive heart failure) Is this a current diagnosis for this admission?: Yes (5) Diabetes mellitus Is this a current diagnosis for this admission?: Yes - Assessment Summary: 05/26/2019 Count is normal stable 8000 BUN of 12 creatinine 0.79 magnesium is up slightly to 1.6 Rest x-ray shows only chronic changes, nothing acute BNP is at 1600 last month he was at 1190 C-reactive protein less than 5 COVID virus pending, I doubt this will be positive Continuing patient's home medications Toprol 100 mg daily Plavix 75 mg daily Zocor 40 mg daily Lasix 20 mg twice daily tonics 40 mg daily Glucophage thousand milligrams twice daily Carafate 1 g every 6 hours Patient also being seen by cardiology Patient clinically feels better than when he was admitted. Patient will probably need further work-up as an outpatient 05/27/2019 Temperature 99 pulse 70 blood pressure 113/52 O2 sat 98% basically on room air White blood cell count normal electrolytes are normal Patient states he feels better with less shortness of breath but admits he is not up and ambulating like he was prior to coming to the hospital COVID 19 results are pending I would like the patient to get to a regular room and floor to where he can ambulate in room and hopefully be discharged home soon Chest x-ray on admission showed no acute findings No clinical indications for antibiotics 05/28/2019 Patient now on dobutamine drip 2.5 mcq as well as Sildenafil for his right heart failure Has been up into the bathroom Labs appear to be running normal glucose between 120 and 130, calcium 8.8 COVID virus is negative Patient's blood pressure approximately 102/53 and pulse 74 and regular Will defer to cardiology concerning treatment plan at this time 05/29/2019 Patient is is actually up walking the halls with no visible shortness of breath. Patient states he feels significantly better. Possibility of discharging patient to home today. Patient's blood pressures have been running just a little low for him 90/40, h owever he is now back in 101/40 with ambulation and being fully awake Heart rate is stable in the 70s If cardiology agrees will discharge patient home today to follow-up as an outpatient. Will discharge home on medications as indicated Patient was admitted on the with shortness of breath on exertion. Has a history of coronary artery disease stents diabetes recent GI bleed, recent hospitalization. He has been seen by cardiology and echo was performed of the weekend which revealed severe pulmonary hypertension with with an unremarkable LV. Patient is now referred to the hospitalist for right heart catheterization and treatment. She was screened by the ER for COVID 19. The see cardiology's notes. Is no recurrence of upper GI bleed. Patient on the day of discharge walked around and oxygen saturation remained 93 to 96% on room air. At the time of discharge patient's edema in his legs had resolved completely very little dyspnea on exertion. His dobutamine drip had to be disco ntinued due to low blood pressure. Tolerating Viagra quite well. She did have a low C-reactive protein count therefore collagen vascular disease was unlikely. Patient will have a sleep study performed as an outpatient. Patient had no history of angina. Patient's cardiac medications at the time of discharge included Plavix 75 mg a day Toprol 50 mg XL twice daily Atorvastan 40 mg twice daily Viagra 20 mg 3 times daily Lasix 20 mg daily In addition to his metformin ER thousand milligrams twice daily Carafate 1 g every 6 hours and Protonix 40 mg daily Patient is to follow-up with his primary care provider as well as cardiology within a week - Additional Information Resuscitation Status: Full Code Discharge Diet: Cardiac, Diabetic Discharge Activity: Activity As Tolerated, Balance Activity w/Rest, Weigh Daily Referrals: [facility] [Outside] (PATIENT TO BE FOLLOWED BY HEALTH DEPT. ON SELF QUARANTINE AT HOME. ONCE THE HEALTH DEPT. RELEASES PATIENT THEN PATIENT MAY SCHEDULE A FOLLOW UP APPT. WITH PCP.) MARIANGEL VINES MD [Primary Care Provider] - Follow up as needed (Called left message for appt. 05/27 - [facility]) Prescriptions: Furosemide [Lasix 20 mg Tablet] 20 mg PO BID 30 Days #60 tablet Potassium Chloride 20 meq PO BID 60 Days #60 tablet.er Sildenafil Citrate [Revatio 20 mg Tablet] 20 mg PO MEALS 30 Days #30 tablet Sildenafil Citrate [Revatio 20 mg Tablet] 20 mg PO DAILY 30 Days #30 tablet Home Medications: Clopidogrel Bisulfate [Plavix] 75 mg PO DAILY 04/23/19 Diphenhydramine HCl [Allergy Medication] 1 tab PO Q8HP PRN 04/23/19 Metformin HCl [Metformin HCl ER] 1,000 mg PO BID 04/23/19 Metoprolol Succinate 100 mg PO DAILY 04/23/19 Simvastatin 40 mg PO DAILY 04/23/19 Pantoprazole Sodium [Protonix [address] Tablet] 40 mg PO QAMPM #60 tablet.dr 04/26/19 Sucralfate [Carafate 1 gm Tablet] 1 gm PO Q6 #120 tablet 04/26/19 Acetaminophen [Tylenol 325 mg Tablet] 650 mg PO Q4HP PRN tablet 05/29/19 Furosemide [Lasix 20 mg Tablet] 20 mg PO BID 30 Days #60 tablet 05/29/19 Metformin HCl [Glucophage 500 mg Tablet] 1,000 mg PO BIDACBS tablet 05/29/19 Potassium Chloride 20 meq PO BID 60 Days #60 tablet.er 05/29/19 Sildenafil Citrate [Revatio 20 mg Tablet] 20 mg PO DAILY 30 Days #30 tablet 05/29/19 Sildenafil Citrate [Revatio 20 mg Tablet] 20 mg PO MEALS 30 Days #30 tablet 05/29/19 History of Present Illiness History of Present Illness: KATI SOLIS is a 68 year old male Physical Exam Vital Signs: Temp Pulse Resp BP Pulse Ox 98.6 F 66 18 133/60 H 95 05/29/19 12:43 05/29/19 12:43 05/29/19 12:43 05/29/19 12:43 05/29/19 12:43 Pulse Oximeter Nocturnal Start: 05/27/19 17:12 Freq: RTQ4 Status: Complete Protocol: Document 05/28/19 04:15 DBE (Rec: 05/28/19 05:46 DBE [id number]) Nocturnal Pulse Oximetry Equipment Usage Equipment in Use Oxygen Delivery Method (includes room Room Air air) O2 Sat by Pulse Oximetry (92-100) 96 Continuous Pulse Oximeter Set Up No Continuous SpO2 Discontinued No Continuous SpO2 Machine # 5 Intake & Output 05/28/19 05/29/19 05/30/19 06:59 06:59 06:59 Intake Total 477 360 480 Output Total 1050 Balance -573 360 480 Weight 93.2 kg 95.4 kg Results Laboratory Results: WBC 8.0 10^3/uL (4.0-10.5) 05/26/19 05:03 RBC 3.40 10^6/uL (4.35-5.55) L 05/26/19 05:03 Hgb 8.5 g/dL (13.5-17.0) L 05/26/19 05:03 Hct 25.8 % (37.9-51.0) L 05/26/19 05:03 MCV 76 fl (80-97) L 05/26/19 05:03 MCH 25.1 pg (27.0-33.4) L 05/26/19 05:03 MCHC 33.0 g/dL (32.0-36.0) 05/26/19 05:03 RDW 21.8 % (11.5-14.0) H 05/26/19 05:03 Plt Count 277 10^3/uL (150-450) 05/26/19 05:03 Lymph % (Auto) 19.9 % (13-45) 05/26/19 05:03 [place] % (Auto) 10.8 % (3-13) 05/26/19 05:03 Eos % (Auto) 3.7 % (0-6) 05/26/19 05:03 Baso % (Auto) 0.8 % (0-2) 05/26/19 05:03 Absolute Neuts (auto) 5.2 10^3/uL (1.7-8.2) 05/26/19 05:03 Absolute Lymphs (auto) 1.6 10^3/uL (0.5-4.7) 05/26/19 05:03 Absolute Monos (auto) 0.9 10^3/uL (0.1-1.4) 05/26/19 05:03 Absolute Eos (auto) 0.3 10^3/uL (0.0-0.6) 05/26/19 05:03 Absolute Basos (auto) 0.1 10^3/uL (0.0-0.2) 05/26/19 05:03 Seg Neutrophils % 64.8 % (42-78) 05/26/19 05:03 D-Dimer 0.60 ug/mL (0.00-0.50) H 05/25/19 14:55 Carbonic Acid 0.87 mmol/L (1.05-1.35) L 05/25/19 17:09 HCO3/H2CO3 Ratio 22:1 05/25/19 17:09 ABG pH 7.45 (7.35-7.45) 05/25/19 17:09 ABG pCO2 28.9 mmHg (35-45) L 05/25/19 17:09 ABG pO2 62.3 mmHg (80-100) L 05/25/19 17:09 ABG HCO3 19.7 mmol/L (20-24) L 05/25/19 17:09 ABG Total CO2 20.6 mmol/L (23-27) L 05/25/19 17:09 ABG O2 Saturation 93.3 % (94-98) L 05/25/19 17:09 ABG Base Excess -3.6 mmol/L 05/25/19 17:09 FiO2 ROOM AIR 05/25/19 17:09 Sodium 137.2 mmol/L (137-145) 05/27/19 04:55 Potassium 3.6 mmol/L (3.6-5.0) 05/27/19 04:55 Chloride 102 mmol/L (98-107) 05/27/19 04:55 Carbon Dioxide 28 mmol/L (22-30) 05/27/19 04:55 Anion Gap 7 (5-19) 05/27/19 04:55 BUN 13 mg/dL (7-20) 05/27/19 04:55 Creatinine 1.00 mg/dL (0.52-1.25) 05/27/19 04:55 Est GFR ( Amer) > 60 (>60) 05/27/19 04:55 Est GFR (MDRD) Non-Af > 60 (>60) 05/27/19 04:55 Glucose 113 mg/dL (75-110) H 05/27/19 04:55 POC Glucose 146 mg/dL (70-110) H 05/29/19 11:21 Calcium 8.8 mg/dL (8.4-10.2) 05/27/19 04:55 Phosphorus 3.9 mg/dL (2.5-4.5) 05/26/19 05:03 Magnesium 1.6 mg/dL (1.6-2.3) 05/26/19 05:03 Ferritin 10.50 ng/mL (17.9-464.0) L 05/25/19 14:55 Total Bilirubin 0.7 mg/dL (0.2-1.3) 05/27/19 04:55 Direct Bilirubin 0.0 mg/dL (0.0-0.4) 05/27/19 04:55 Neonat Total Bilirubin Not Reportable 05/27/19 04:55 Neonat Direct Bilirubin Not Reportable 05/27/19 04:55 Neonat Indirect Bili Not Reportable 05/27/19 04:55 AST 22 U/L (17-59) 05/27/19 04:55 ALT 13 U/L (<50) 05/27/19 04:55 Alkaline Phosphatase 50 U/L (38-126) 05/27/19 04:55 Troponin I < 0.012 ng/mL 05/25/19 14:55 C-Reactive Protein < 5.0 mg/L (<10.0) 05/25/19 14:55 NT-Pro-B Natriuret Pep 1600 pg/mL (<125) H 05/25/19 14:55 Total Protein 6.9 g/dL (6.3-8.2) 05/27/19 04:55 Albumin 4.0 g/dL (3.5-5.0) 05/27/19 04:55 Triglycerides 129 mg/dL (<150) 05/27/19 04:55 Cholesterol 93.26 mg/dL (0-200) 05/27/19 04:55 LDL Cholesterol Direct 48 mg/dL (<100) 05/27/19 04:55 VLDL Cholesterol 26.0 mg/dL (10-31) 05/27/19 04:55 HDL Cholesterol 34 mg/dL (>40) L 05/27/19 04:55 TSH 1.09 uIU/mL (0.47-4.68) 05/25/19 14:55 Urine Color YELLOW 05/25/19 18:32 Urine Appearance CLEAR 05/25/19 18:32 Urine pH 5.0 (5.0-9.0) 05/25/19 18:32 Ur Specific [place] 1.024 05/25/19 18:32 Urine Protein NEGATIVE mg/dL (NEGATIVE) 05/25/19 18:32 Urine Glucose (UA) NEGATIVE mg/dL (NEGATIVE) 05/25/19 18:32 Urine Ketones NEGATIVE mg/dL (NEGATIVE) 05/25/19 18:32 Urine Blood NEGATIVE (NEGATIVE) 05/25/19 18:32 Urine Nitrite NEGATIVE (NEGATIVE) 05/25/19 18:32 Urine Bilirubin NEGATIVE (NEGATIVE) 05/25/19 18:32 Urine Urobilinogen NEGATIVE mg/dL (<2.0) 05/25/19 18:32 Ur Leukocyte Esterase NEGATIVE (NEGATIVE) 05/25/19 18:32 Urine WBC (Auto) 0 /HPF 05/25/19 18:32 Urine RBC (Auto) 0 /HPF 05/25/19 18:32 Squamous Epi Cells Auto <1 /HPF 05/25/19 18:32 Urine Mucus (Auto) RARE /LPF 05/25/19 18:32 Urine Ascorbic Acid NEGATIVE (NEGATIVE) 05/25/19 18:32 COVID-19 Source NASOPHARYNGEAL 05/25/19 18:32 COVID-19 (ADOLFO) NOT DETECTED 05/25/19 18:32 Influenza A (Rapid) NEGATIVE (NEGATIVE) 05/25/19 17:59 Influenza B (Rapid) NEGATIVE (NEGATIVE) 05/25/19 17:59 Group A Strep Rapid NEGATIVE (NEGATIVE) 05/25/19 17:59 05/25/19 14:55 Troponin I < 0.012 NT-Pro-B Natriuret Pep 1600 H Impressions: Chest X-Ray 05/25/19 14:33 IMPRESSION: No interval change in the chest with chronic pleural and parenchymal changes in the left base. Stroke Is this a Stroke Patient?: No Acute Heart Failure - Is this a Heart Failure Patient?: No
== END 2019-05-29 13:28 | disposition home or self-care (01) | DRG 316 ==
LOC: ER 14:30 → EH 17:59 → OBSVTOIN 17:59 → 5 21:16 → 3W 05-27 15:53
PROVIDERS: ADMIT Internal Medicine; ATTEND Physician Assistant
DX: I27.29 Other secondary pulmonary hypertension (principal); I50.810 Right heart failure, unspecified; I11.0 Hypertensive heart disease with heart failure; E78.5 Hyperlipidemia, unspecified; I25.10 Atherosclerotic heart disease of native coronary artery without angina pectoris; E83.42 Hypomagnesemia; E11.65 Type 2 diabetes mellitus with hyperglycemia; I25.2 Old myocardial infarction; Z95.5 Presence of coronary angioplasty implant and graft; Z79.01 Long term (current) use of anticoagulants; Z79.84 Long term (current) use of oral hypoglycemic drugs; Z79.899 Other long term (current) drug therapy; Z03.818 Encounter for observation for suspected exposure to other biological agents ruled out
CPT/HCPCS: 36415; 71045; 80048; 80053; 80061; 80076; 81001; 82728; 82803; 82962; 83735; 83880; 84100; 84443; 84484; 85025; 85379; 85652; 86038; 86140; 86162; 86225; 86431; 87070; 87635; 87804; 87880; 93005; 93010; 94762; 96365; 96375; 99285; J1250; J1650; J1815; J1940; J3475; J3490

== ENCOUNTER → 2019-05-25 | Outpatient (CLI) | payer MEDICARE, OTHER ==
[2019-05-25 13:06] LABS: ABSOLUTE BASOPHILS # (AUTO) 0.1 10^3/uL (0.0-0.2); ABSOLUTE EOSINOPHILS # (AUTO) 0.3 10^3/uL (0.0-0.6); ABSOLUTE LYMPHOCYTES (AUTO) 1.4 10^3/uL (0.5-4.7); ABSOLUTE MONOCYTES (AUTO) 0.7 10^3/uL (0.1-1.4); ABSOLUTE NEUT (AUTO) 6.1 10^3/uL (1.7-8.2); BASOPHILS % (AUTO) 0.9 % (0-2); EOSINOPHILS % (AUTO) 3.7 % (0-6); HEMATOCRIT 27.7 % (37.9-51.0); HEMOGLOBIN 8.9 g/dL (13.5-17.0); MEAN CORPUSCULAR HEMOGLOBIN 25.2 pg (27.0-33.4); MONOCYTES % (AUTO) 7.7 % (3-13); PLATELET COUNT 318 10^3/uL (150-450); RED BLOOD COUNT 3.52 10^6/uL (4.35-5.55); RED CELL DISTRIBUTION WIDTH 21.5 % (11.5-14.0); SEGMENTED NEUTROPHILS % (AUTO) 71.7 % (42-78); TOTAL CELLS COUNTED % (AUTO) 100 %; WHITE BLOOD COUNT 8.5 10^3/uL (4.0-10.5)
[2019-05-25 13:07] LABS: MEAN CORPUSCULAR VOLUME 79 fl (80-97)
[2019-05-25 13:34] LABS: C-REACTIVE PROTEIN < 5.0 mg/L (<10.0)
[2019-05-25 13:43] LABS: ERYTHROCYTE SEDIMENTATION RATE 30 mm/hr (0-20)
[2019-05-26 11:52] LABS: ANTINUCLEAR ANTIBODIES Negative (Negative)
== END ==
LOC: OD 10:08
PROVIDERS: ATTEND Specialist
DX: E78.5 Hyperlipidemia, unspecified (principal); Z79.899 Other long term (current) drug therapy
CPT/HCPCS: 36415; 85025; 85652; 86038; 86140; 86162; 86225; 86431